=== PATIENT | male | born 1950 | race Caucasian/White ===

== ENCOUNTER → 2017-10-01 12:45 | Outpatient (CLI) | payer MEDICARE, OTHER, SELFPAY ==
--- NOTE | 2017-10-01 12:48 | ECHOCS_ITS ---
Reason For Study: CHF Procedure This was a 2D Doppler, Color Flow transthoracic echocardiogram. Contrast injection was performed. Exam performed in department. Left Ventricle Moderately dilated left ventricle. Possible small laminated thrombus at LV apex. The estimated ejection fraction is 10-15 %. Stage 1 diastolic dysfunction. Septal motion consistent with IVCD. There is severe global hypokinesis of the left ventricle. Right Ventricle Normal size and thickness. ICD or pacer leads identified within the right ventricle. Normal systolic function. Atria Normal left atrium. Normal right atrium. Normal atrial septum. Mitral Valve The mitral valve is structurally normal. No prolapse or stenosis seen. Tricuspid Valve Normal tricuspid valve. Trivial tricuspid valve insufficiency. Right ventricular systolic pressure estimated to be 23 mmHg. Aortic Valve Normal aortic valve. Trisinus/trileaflet aortic valve. Pulmonic Valve The pulmonic valve is not well visualized. Great Vessels Normal aortic root. Normal arch. Pericardium/Pleural No pericardial effusion. Medication 22 gauge I.V. with prn adaptor inserted into right arm. Diluted definity 2ml given slow IV push to enhance endocardial definition. MMode/2D Measurements & Calculations LVIDd: 5.1 cm IVSd: 0.85 cm Ao root diam: 4.0 cm LVIDs: 4.7 cm LVPWd: 1.0 cm LA dimension: 4.4 cm FS: 8.4 % LAV(MOD-bp): 63.2 ml LAV(MOD-bp) Indexed: 30.1 ml/m2 LA A4 area: 19.1 cm2 RA A4 area: 11.9 cm2 LAV(MOD-sp2): 51.2 ml LAV(MOD-sp4): 65.2 ml Time Measurements MV dec time: 0.22 sec Doppler Measurements & Calculations MV E max samuel: 50.9 cm/sec Lat Peak E' Samuel: 8.3 cm/sec Med Peak E' Samuel: 4.5 cm/sec MV A max samuel: 62.4 cm/sec E/E' lat: 6.2 E/E' med: 11.3 MV E/A: 0.82 MV V2 max: 72.5 cm/sec MV P1/2t max samuel: 62.3 cm/sec Ao V2 max: 60.0 cm/sec MV max P.1 mmHg MV P1/2t: 74.0 msec Ao max P.4 mmHg MV V2 mean: 38.7 cm/sec MV dec slope: 246.5 cm/sec2 Ao V2 mean: 40.8 cm/sec MV mean P.72 mmHg MVA(P1/2t): 3.0 cm2 Ao mean P.77 mmHg MV V2 VTI: 19.3 cm Ao V2 VTI: 10.5 cm LV V1 max: 52.4 cm/sec PA V2 max: 55.6 cm/sec TR max samuel: 215.2 cm/sec LV V1 max P.1 mmHg TR max P.5 mmHg LV V1 mean P.71 mmHg LV V1 mean: 39.9 cm/sec LV V1 VTI: 10.5 cm Interpretation Summary Moderately dilated left ventricle. The estimated ejection fraction is 10-15 %. Stage 1 diastolic dysfunction. There is severe global hypokinesis of the left ventricle. Right ventricular systolic pressure estimated to be 23 mmHg. Possible small laminated thrombus at LV apex. Compared to echo report dated 02/15/2015, LV function has remained the same, RVSP has improved from 32 to 23 mm Hg. Spherical apical clot previously seen now appears to be laminated against LV apex. The study was technically difficult. Contrast injection was performed. Ordering Physician: Jose Ulrich Referring Physician: Jose Ulrich Performed By: Scott Mccullough RCS
== END ==
PROVIDERS: Family Provider Family Medicine; PCP Family Medicine; Visit Provider Internal Medicine Cardiovascular Disease
DX: I50.9 Heart failure, unspecified (principal); I25.10 Atherosclerotic heart disease of native coronary artery without angina pectoris
CPT/HCPCS: 93306; Q9957; A4216; C8929

== ENCOUNTER → 2018-04-13 12:13 | Outpatient (CLI) | payer MEDICARE, OTHER, SELFPAY ==
[2018-04-13 11:51] VITALS: BMI 32.5
[2018-04-13 13:22] LABS: AST(SGOT) 21 U/L (15-37); Alanine Aminotransfer ALT/SGPT 30 U/L (16-61); Albumin, Serum 3.7 g/dL (3.2-5.0); Alkaline Phosphatase 109 U/L (45-117); Cholesterol 95 mg/dL (200); Globulin 3.7 g/dL (2.2-4.2); High Density Lipoprotein 45 mg/dL; Protein, Total 7.4 g/dL (6.4-8.2); Triglycerides 49 mg/dL; Very Low Density Lipoprotein 10 mg/dL (5-40)
== END ==
PROVIDERS: Family Provider Family Medicine; PCP Family Medicine; Referring Provider Internal Medicine Cardiovascular Disease; Visit Provider Internal Medicine Cardiovascular Disease
DX: I25.10 Atherosclerotic heart disease of native coronary artery without angina pectoris (principal); E78.5 Hyperlipidemia, unspecified
CPT/HCPCS: 36415; 80061; 80076

== ENCOUNTER → 2019-05-18 | Outpatient (CLI) | payer MEDICARE, OTHER, SELFPAY ==
[2018-11-05 11:39] VITALS: BMI 31.7
[2019-05-18 17:17] LABS: Absolute Lymphocyte Count 2.04 X10^3/uL (0.83-4.51); Absolute Neutrophil Count 5.2 X10^3/uL (2.0-7.7); Basophil# 0.03 X10^3/uL; Basophil% 0.4 % (0-1); Eosinophil# 0.14 X10^3/uL; Eosinophils% 1.8 % (0-5); Hematocrit 47.2 % (40-54); Hemoglobin 15.1 g/dL (13.0-16.5); Lymphocyte # 2.04 X10^3/ul (4.0); Lymphocyte % 25.8 % (19-41); Mean Corpuscular Hgb 28.7 pg (27.0-32.0); Mean Corpuscular Volume 89.7 fL (80-94); Mean Platelet Vol. 9.2 fl (6.2-12.0); Monocyte% 6.3 % (0-10); NRBC Flagged by Analyzer 0 % (0-5); Neutrophil # 5.17 X10^3/uL (2.7-7.7); Neutrophil % 65.4 % (47-70); Platelet Count 304 K/mm3 (150-450); RBC Distribution Width CV 12.7 % (11.6-14.6); RBC Distribution Width SD 42.2 fl (35.1-43.9); Red Blood Count 5.26 M/mm3 (4.6-6.2); White Blood Count 7.9 K/mm3 (4.4-11.0)
[2019-05-18 17:40] LABS: Anion Gap 7 (5-15); BUN 21 mg/dL (7-18); Calcium,Total 9.4 mg/dL (8.5-10.1); Chloride 105 mmol/L (98-107); Creatinine, Serum 1.31 mg/dL (0.70-1.30); EST Glomerular Filtration Rate 58 mL/min (>60); Est Glom Filt Rate - Afr Amer 70 mL/min (>60); Glucose 122 mg/dL (74-106); PSA,Total - Annual Screen 0.44 ng/mL (0.00-4.00); Potassium 4.1 mmol/L (3.5-5.1); Sodium Level 141 mmol/L (136-145)
[2019-05-18 17:41] LABS: Hemoglobin A1c 7.9 % (4.2-6.3)
== END | disposition home or self-care (01) ==
LOC: BFHLAB 14:08
PROVIDERS: PCP Family Medicine; Visit Provider Family Medicine
DX: E11.59 Type 2 diabetes mellitus with other circulatory complications (principal); I10 Essential (primary) hypertension; Z51.81 Encounter for therapeutic drug level monitoring; Z12.5 Encounter for screening for malignant neoplasm of prostate
CPT/HCPCS: 36415; 80048; 83036; 84153; 85025; G0103

== ENCOUNTER → 2019-06-08 09:44 | Outpatient (CLI) | payer MEDICARE, OTHER, SELFPAY ==
[2019-05-20 12:01] VITALS: BMI 31.4
--- NOTE | 2019-06-08 09:53 | STEWCON_ITS ---
Reason For Study: CHEST PAIN Stress Results Protocol: Modified Antonio Protocol With Definity Maximum Predicted HR: 152 bpm Target HR: 129 bpm % Maximum Predicted HR: 84 % DurationHeart Rate Stage (mm:ss) (bpm) BP Comment BASELINE 76 138/744 CC DEFINITY FOR ENTIRE TEST STAGE 0 3:00 100 142/70 STAGE 1/2 3:00 100 142/70 STAGE 1 3:00 110 144/70 STAGE 2 3:00 120 140/70 STAGE 3 0:50 127 / RECOVERY 86 140/78 Stress Duration: 12:50 mm:ss Maximum Stress HR: 127 bpm Baseline Echocardiogram Findings The estimated ejection fraction is 20 %. Severely dilated left ventricle. Stress Echo Wall motion Data Resting WM Intermediate WM Stress WM Resting Wall Motion Basal anteroseptal: Severely Hypokinetic. Mid-Anterior : Severely Hypokinetic. Mid-Lateral : Severely Hypokinetic. EKG Data The baseline ECG displays normal sinus rhythm. The maximum heart rate attained was 127 beats per minute. This was 83% of maximum predicted heart rate. The patient exercised into stage 3 of the Antonio protocol. During stress, there were no ST or T wave changes noted to suggest ischemia. No clinical angina was noted. Interpretation Summary The estimated ejection fraction is 20 %. Normal, adequate, modified Antonio treadmill echocardiogram. Negative for ischemia by EKG and echocardiographic criteria. Rare PVC noted. Appropriate blood pressure response to exercise. Average exercise capacity for age. Patient at baseline severe LV dysfunction with severe anteroseptal and lateral hypokinesis. All richardson contracted normally except for baseline anteroseptal hypokinesis. Final LVEF of 35%. Decrease sensitivity due to poor echo windows requiring Definity agent. Test terminated the attainment target heart rate and dyspnea. Adequate rate-pressure product. The study was technically difficult. Contrast injection was performed. Ordering Physician: Jose Ulrich Referring Physician: Jose Ulrich Performed By: Jeanette Minaya, RDCS, RVT
[2019-06-08 11:32] LABS: AST(SGOT) 27 U/L (15-37); Alanine Aminotransfer ALT/SGPT 36 U/L (16-61); Albumin, Serum 3.9 g/dL (3.2-5.0); Alkaline Phosphatase 134 U/L (45-117); Bilirubin, Direct 0.19 mg/dL (0.00-0.30); Cholesterol 116 mg/dL (200); High Density Lipoprotein 44 mg/dL; Protein, Total 7.9 g/dL (6.4-8.2); Triglycerides 54 mg/dL; Very Low Density Lipoprotein 11 mg/dL (5-40)
== END ==
PROVIDERS: PCP Family Medicine; Referring Provider Internal Medicine Cardiovascular Disease; Visit Provider Internal Medicine Cardiovascular Disease
DX: I25.10 Atherosclerotic heart disease of native coronary artery without angina pectoris (principal); E78.5 Hyperlipidemia, unspecified; I50.22 Chronic systolic (congestive) heart failure; I25.5 Ischemic cardiomyopathy; Z95.1 Presence of aortocoronary bypass graft
CPT/HCPCS: 36415; 80061; 80076; 93017; 93350; Q9957; A4216; C8928

== ENCOUNTER → 2020-05-30 11:59 | Outpatient (CLI) | payer MEDICARE, OTHER, SELFPAY ==
[2019-12-21 14:27] VITALS: BMI 30.5
[2020-05-30 12:43] LABS: Absolute Lymphocyte Count 1.72 X10^3/uL (0.83-4.51); Absolute Neutrophil Count 5.1 X10^3/uL (2.0-7.7); Basophil# 0.04 X10^3/uL; Basophil% 0.5 % (0-1); Eosinophil# 0.11 X10^3/uL; Eosinophils% 1.4 % (0-5); Hematocrit 44.5 % (40-54); Hemoglobin 14.6 g/dL (13.0-16.5); Lymphocyte # 1.72 X10^3/ul (4.0); Lymphocyte % 22.5 % (19-41); Mean Corp Hgb Conc 32.8 g/dL (32-36); Mean Corpuscular Hgb 29.7 pg (27.0-32.0); Mean Corpuscular Volume 90.4 fL (80-94); Mean Platelet Vol. 9.3 fl (6.2-12.0); Monocyte# 0.64 X10^3/uL; Monocyte% 8.4 % (0-10); NRBC Flagged by Analyzer 0 % (0-5); Neutrophil # 5.09 X10^3/uL (2.7-7.7); Neutrophil % 66.7 % (47-70); Platelet Count 256 K/mm3 (150-450); RBC Distribution Width CV 12.9 % (11.6-14.6); RBC Distribution Width SD 42.1 fl (35.1-43.9); Red Blood Count 4.92 M/mm3 (4.6-6.2); White Blood Count 7.6 K/mm3 (4.4-11.0)
[2020-05-30 13:01] LABS: Microalbumin,Random Urine 20.5 mg/L (NO RANGE EST.); Microalbumin:Creatinine Ratio 13.9 mg/g CRE (<30 mg/g CRE)
[2020-05-30 13:18] LABS: Hemoglobin A1c 8.4 % (3.8-5.6)
[2020-05-30 13:47] LABS: ALB/GLOB Ratio 1.1 RATIO (0.9-2.4); AST(SGOT) 23 U/L (15-37); Alanine Aminotransfer ALT/SGPT 34 U/L (16-61); Alkaline Phosphatase 124 U/L (45-117); Anion Gap 5 (5-15); BUN 22 mg/dL (7-18); BUN/Creat Ratio 16.7 RATIO (10-20); Calcium,Total 9.7 mg/dL (8.5-10.1); Chloride 105 mmol/L (98-107); Cholesterol 110 mg/dL (200); Creatinine, Serum 1.32 mg/dL (0.70-1.30); EST Glomerular Filtration Rate 57 mL/min (>60); Est Glom Filt Rate - Afr Amer 69 mL/min (>60); Globulin 3.7 g/dL (2.2-4.2); Glucose 138 mg/dL (74-106); High Density Lipoprotein 46 mg/dL; PSA,Total - Annual Screen 0.58 ng/mL (0.00-4.00); Potassium 4.4 mmol/L (3.5-5.1); Protein, Total 7.7 g/dL (6.4-8.2); Sodium Level 139 mmol/L (136-145); Triglycerides 51 mg/dL; Very Low Density Lipoprotein 10 mg/dL (5-40)
== END ==
PROVIDERS: PCP Family Medicine; Visit Provider Family Medicine
DX: E11.59 Type 2 diabetes mellitus with other circulatory complications (principal); I25.10 Atherosclerotic heart disease of native coronary artery without angina pectoris; I10 Essential (primary) hypertension; Z12.5 Encounter for screening for malignant neoplasm of prostate; Z79.899 Other long term (current) drug therapy
CPT/HCPCS: 36415; 80053; 80061; 82043; 82570; 83036; 84153; 85025; G0103

== ENCOUNTER 2021-03-26 12:41 | Outpatient (CLI) | payer MEDICARE, OTHER, SELFPAY ==
--- NOTE | 2021-03-26 12:50 | ECHOCS_ITS ---
Reason For Study: Thrombus Procedure This was a 2D Doppler, Color Flow transthoracic echocardiogram. The study was technically difficult. Contrast injection was performed. Exam performed in department. Left Ventricle Moderately dilated left ventricle. Severe global left ventricular systolic dysfunction. The estimated ejection fraction is 15 %. Diastolic function is indeterminate. Right Ventricle Normal RV size. Normal systolic function. Atria The left atrium is mildly enlarged. Normal right atrium. No doppler evidence for ASD. Mitral Valve There is mild mitral annular calcification. Extension of the mitral annular calcification on the base of the posterior mitral valve leaflet. Mild (1+) mitral valve insufficiency. Tricuspid Valve Normal tricuspid valve. Mild tricuspid valve insufficiency. Right ventricular systolic pressure estimated to be 30 mmHg. Aortic Valve Trisinus/trileaflet aortic valve. The aortic valve is not well visualized. Pulmonic Valve The pulmonic valve is not well visualized. Mild (1+) pulmonic valve insufficiency. Great Vessels The aortic root is not well visualized. Pericardium/Pleural No pericardial effusion. Medication 22 gauge I.V. with prn adaptor inserted into right arm. Diluted definity 4ml given slow IV push to enhance endocardial definition. MMode/2D Measurements & Calculations LVIDd: 5.7 cm IVSd: 1.1 cm LA dimension: 4.6 cm LVIDs: 5.3 cm LVPWd: 1.1 cm FS: 7.0 % LAV(MOD-bp): 55.3 ml LA A4 area: 19.3 cm2 RA A4 area: 15.9 cm2 LAV(MOD-bp) Indexed: 26.4 ml/m2 LAV(MOD-sp2): 55.2 ml LAV(MOD-sp4): 61.7 ml Time Measurements MV dec time: 0.22 sec Doppler Measurements & Calculations MV E max samuel: 78.5 cm/sec Lat Peak E' Samuel: 10.5 cm/sec Med Peak E' Samuel: 5.0 cm/sec MV A max samuel: 54.7 cm/sec E/E' lat: 7.5 E/E' med: 15.6 MV E/A: 1.4 MV V2 max: 71.3 cm/sec MV P1/2t max samuel: 71.3 cm/sec Ao V2 max: 80.0 cm/sec MV max P.0 mmHg MV P1/2t: 103.3 msec Ao max P.6 mmHg MV V2 mean: 43.5 cm/sec MV dec slope: 202.2 cm/sec2 MV mean P.86 mmHg MV V2 VTI: 17.5 cm MVA(P1/2t): 2.1 cm2 LV V1 max: 69.5 cm/sec PA V2 max: 70.3 cm/sec TR max samuel: 257.4 cm/sec LV V1 max P.9 mmHg TR max P.5 mmHg ECHO/Echo Complete W/ Contrast Interpretation Summary The study was technically difficult. Contrast injection was performed. Moderately dilated left ventricle. Severe global left ventricular systolic dysfunction. The estimated ejection fraction is 15 %. The left atrium is mildly enlarged. There is mild mitral annular calcification. Extension of the mitral annular calcification on the base of the posterior mitr al valve leaflet. Mild (1+) mitral valve insufficiency. Mild tricuspid valve insufficiency. Mild (1+) pulmonic valve insufficiency. Right ventricular systolic pressure estimated to be 30 mmHg. Diastolic function is indeterminate. Comment: Based upon the 2D echocardiographic images obtained there appears to b e findings potentially compatible with a partially calcified/laminated apical thrombus. Ordering Physician: Lisa Seo Referring Physician: Avinash Cedeño Performed By: Scott Mccullough RCS
== END 2021-03-26 23:59 | disposition short-term general hospital (02) ==
LOC: CVS 12:45
PROVIDERS: PCP Family Medicine; Visit Provider Physician Assistant Medical
DX: I25.10 Atherosclerotic heart disease of native coronary artery without angina pectoris (principal)
CPT/HCPCS: 93306; Q9957; A4216; C8929

== ENCOUNTER 2021-04-26 13:52 | Outpatient (CLI) | payer MEDICARE, OTHER, SELFPAY ==
[2021-04-26 15:54] LABS: Anion Gap 4 (5-15); BUN 21 mg/dL (7-18); BUN/Creat Ratio 14.6 RATIO (10-20); Calcium,Total 9.2 mg/dL (8.5-10.1); Chloride 104 mmol/L (98-107); Creatinine, Serum 1.44 mg/dL (0.70-1.30); EST Glomerular Filtration Rate 52 mL/min (>60); Est Glom Filt Rate - Afr Amer 62 mL/min (>60); Glucose 224 mg/dL (74-106); Potassium 4.3 mmol/L (3.5-5.1); Sodium Level 138 mmol/L (136-145)
== END 2021-04-26 23:59 | disposition home or self-care (01) ==
LOC: LAB 13:53
PROVIDERS: PCP Family Medicine; Visit Provider Family Medicine
DX: Z12.5 Encounter for screening for malignant neoplasm of prostate (principal); E11.59 Type 2 diabetes mellitus with other circulatory complications; I25.10 Atherosclerotic heart disease of native coronary artery without angina pectoris; I10 Essential (primary) hypertension; E87.6 Hypokalemia
CPT/HCPCS: 36415; 80048

== ENCOUNTER 2021-05-31 12:00 | Outpatient (CLI) | payer MEDICARE, OTHER, SELFPAY ==
[2021-05-31 13:13] LABS: Cholesterol 94 mg/dL (200); Hemoglobin A1c 8.2 % (3.8-5.6); High Density Lipoprotein 44 mg/dL; Microalbumin,Random Urine 9.7 mg/L (NO RANGE EST.); Microalbumin:Creatinine Ratio 19.3 mg/g CRE (<30 mg/g CRE); Triglycerides 38 mg/dL; Very Low Density Lipoprotein 8 mg/dL (5-40)
== END 2021-05-31 23:59 | disposition home or self-care (01) ==
LOC: LAB 12:03
PROVIDERS: PCP Family Medicine; Visit Provider Family Medicine
DX: E87.6 Hypokalemia (principal); E11.59 Type 2 diabetes mellitus with other circulatory complications; I25.10 Atherosclerotic heart disease of native coronary artery without angina pectoris; I10 Essential (primary) hypertension; Z12.5 Encounter for screening for malignant neoplasm of prostate
CPT/HCPCS: 36415; 80061; 82043; 82570; 83036; 84153; G0103

== ENCOUNTER 2021-07-03 09:12 | Day surgery (SDC) | payer MEDICARE, OTHER, SELFPAY ==
[2021-07-03] VITALS (7 sets, daily range): BP systolic 101–142; BP diastolic 60–73; PULSE 62–75; RESP 16; TEMP 36.3–36.8; O2SAT 94–98; BMI 31.4
[2021-07-03] MEDS: Lactated Ringers 1,000 ML 15 ML IV (09:20)
--- NOTE | 2021-07-03 09:34 | PCM.HP.BLA ---
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 Required: No Is patient in pain?: No Allergies Penicillins Allergy (Verified 06/26/21 13:07) Other lisinopril Adverse Reaction (Mild, Verified 06/26/21 13:07) Nagging cough Medications tamsulosin 0.4 mg capsule 0.4 mg PO QDAY 05/07/17 [History Confirmed 06/26/21] insulin human U-100 NPH-regulr 70-30 mix 100 unit/mL subcutaneous susp 10 unit SC BID ml 06/18/17 [History Confirmed 06/26/21] insulin regular human 100 unit/mL injection solution 7 unit SC TID ml 06/18/17 [History Confirmed 06/26/21] uxnrxrfm-qej-riynv acid 0.4 mg-lycopene 300 mcg-lutein 250 mcg tablet 1 tab PO QDAY 06/18/17 [History Confirmed 06/26/21] aspirin 81 mg tablet,delayed release 81 mg PO QDAY 09/08/17 [History Confirmed 06/26/21] carvedilol 6.25 mg tablet 6.25 mg PO BID #180 tab 11/21/20 [Rx Confirmed 06/26/21] furosemide 40 mg tablet 40 mg PO QDAY #90 tab 11/21/20 [Rx Confirmed 06/26/21] rivaroxaban 20 mg tablet 20 mg PO QDAY #30 tab 02/26/21 [Rx Confirmed 06/26/21] losartan 25 mg tablet 25 mg PO .COMPLEX #45 tab 03/15/21 [Rx Confirmed 06/26/21] atorvastatin 80 mg tablet 80 mg PO QHS #90 tab 03/21/21 [Rx Confirmed 06/26/21] pantoprazole 40 mg tablet,delayed release 40 mg PO QDAY #90 tab 03/21/21 [Rx Confirmed 06/26/21] potassium chloride 20 mEq tablet,extended release 20 meq PO QDAY #90 tab 03/21/21 [Rx Confirmed 06/26/21] [facility] Medical History (Updated 06/26/21 @ 13:[address] 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 Type 2 diabetes mellitus without complications Surgical History H/O coronary artery bypass surgery (03/30/15) H/O right heart catheterization (03/27/15) History of foot surgery History of left heart catheterization (03/22/15) Presence of automatic implantable cardioverter-defibrillator (08/21/15) Family History Mother Hypertension Thyroid disorder hypothyroidism Brother Diabetes H/O mitral valve replacement Father , Age 67 Cancer COPD (chronic obstructive pulmonary disease) Social History Smoking Status: Never smoker alcohol intake: never substance use type: does not use caffeine: Yes Type: coffee Number of servings: 2 HPI HPI HPI: HEAVENLY LYNN, is a 71 M who presents to the office today for consideration of colonoscopy. The patient is referred by Dr. Avinash Cedeño and a written copy of my surgical consult recommendations will return to him. The patient is in need of colon cancer screening. The patient has a history of ischemic cardiomyopathy. Report of ejection fraction and worsening to 15% March 2021. 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 Among his other medicines he is on insulin and carvedilol And furosemide and pantoprazole and Xarelto. He is a ICD in place. As of March 26, 2021 with the preintervention diagnosis of thrombus the patient had an echocardiogram. There was felt to be a moderately dilated left ventricle. Severe global left ventricular systolic dysfunction with an ejection fraction of 15%. In addition there is felt to be a partially calcified/laminated apical thrombus.. He has had a history of coronary bypass surgery. Had a colonoscopy. He is amazingly functional for someone who has an ejection fraction of 15%. He denies chest pain. Denies shortness of breath. Denies leg swelling. Denies abdominal pain. He has had no bright red blood per rectum or melena. He is on Xarelto however he states that he does not seem to bleed very readily. Remotely he was on warfarin therapy. ROS General General: No weight change, appetite, fatigue, colon cancer, breast cancer or weakness HEENT HEENT: No difficulty swallowing, eye injury, eye surgery, swollen glands or hoarseness Endo Endocrine: Yes diabetes mellitus; No thyroid disease, thyroid cancer, Hair loss, heat intolerance or cold intolerance Skin Skin: No rash or changing moles Breast Breast: No left breast lump, right breast lump, nipple discharge, breast pain, abnormal mammogram, abnormal US or breast enlargement Musc Musculoskeletal: No back problems, arthritis, rheumatoid arthritis, gout or joint pain Cardio Cardiovascular: Yes pacemaker, heart disease, high blood pressure and heart attack; No murmur, atrial fibrillation, heart stent, palpitations, shortness of breat with exertion or chest pain Psych Psychiatric: No depression, anxiety or hearing voices Resp Respiratory: No shortness of breath, No sleep apnea, No cough, No COPD, No asthma, No emphysema and No wheezing Gastro Gastrointestinal: No abdominal pain, No nausea or vomiting, No diarrhea, No constipation, No blood in stool, No acid reflux, No hemorrhoids, No ulcers, No gallbladder problem and No black,tarry stools Daniel Hematologic: Yes blood thinners, No blood disorders, No bleeding, No anemia and No blood clots Neuro Neurologic: No system reviewed and no additional complaints, except as documented, No as per HPI, No abnormal gait, No abnormal hearing, No abnormal movements, No abnormal speech, No behavioral changes, No burning sensations, No confusion, No convulsions, No disequilibrium, No dizziness, No localized weakness, No frequent falls, No headache(s), No lack of coordination, No loss of vision, No memory loss, No numbness, No other visual disturbances, No radicular pain, No restless legs, No sensory deficit, No syncope, No tingling, No tremor(s), No weakness and No other Exam Const General: cooperative, comfortable and no acute distress Nutritional Appearance: obese Orientation: awake and oriented x3 HENMT Head: normal to inspection Eyes General: appearance normal, both eyes and all related structures Resp Effort & Inspection: normal respiratory effort Auscultation: clear to auscultation bilaterally Cardio Rate: regular rate Rhythm: regular rhythm GI Palpation: soft and no hepatosplenomegaly Musc Cervical Spine: normal cervical lordosis Neuro General: patient alert and patient awake Extrem General: no calf tenderness Psych Appearance: grossly normal Assessment and Plan Assessment and Plan (1) Screening for intestinal cancer: Status: Acute Plan - Dr. Abdi Hernandez MD: I recommend to the patient a screening colonoscopy with possible biopsy or polypectomy as indicated. He has stable thrombus in his heart. For an ejection fraction of 15% he is amazingly functional. He is able to achieve his tasks of daily living without disruption. 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 We will plan to proceed with monitored anesthesia care.. His pacemaker defibrillator will need to be observed as well. As noted he has never had a previous colonoscopy. We will simply have him hold his Xarelto on the day of his procedure. Appreciate the opportunity of assisting with the surgical care Copy: Dr. Avinash Hernandez M.D., F.A.C.S I have re-examined the patient. There are no clinical changes since date of exam. Abdi Hernandez M.D., F.A.C.S.
[2021-07-03 09:55] LABS: Bedside Glucose 231 mg/dL (74-106)
--- NOTE | 2021-07-03 10:30 | COLBX_PTH ---
PATIENT: HEAVENLY LYNN LOC: EN U#:[id number] AGE/SX: 71/M ROOM: RE07/03/[address]: Dr. Abdi Hernandez MD : 1950 BED: DIS: 07/03/2021 SPEC #: [id number] RECD: 07/03/21 13:48 STATUS: RONNIE RIGGINS #: [id number] ROCHELLE: 07/03/21 10:[address]: Abdi Hernandez DEPT: SURGICAL PATHOLOGY RECD BY: Charity Motley ENTERED: 07/04/21 09:51 SP TYPE: COLON BX OTHR DR: Dr. Avinash Cedeño, DO Tissues: A - Sigmoid colon biopsy B - Rectum, NOS Procedures: Surgery Specimen Level IV HEADER OPERATION: Colonoscopy (MAC) polyp PRE-OP DIAGNOSIS: Screening TISSUE SUBMITTED: A ? Proximal sigmoid polyp, B ? Rectal polyp MICROSCOPIC DIAGNOSIS A. Proximal sigmoid polyp, biopsy: Fragments of tubular adenoma. B. Rectal polyp, biopsy: Tubular adenoma. OMERO:melina 07/05/2021 MICROSCOPIC DESCRIPTION Slides are reviewed. GROSS DESCRIPTION A - Received in fixative is one container labeled with the patient's name and designated proximal sigmoid polyp. The specimen consists of two pieces of rolle-pink polyp measuring 0.5 x 0.4 x 0.2 cm and 0.3 x 0.3 x 0.1 cm. The specimen is totally submitted in one cassette. B - Received in fixative is one container labeled with the patient's name and designated rectal polyp. The specimen consists of a pink-red polyp measuring 1.6 x 1 x 0.7 cm. The apparent base is inked. The specimen is serially sectioned and submitted entirely in one cassette. / OMERO:melina 07/04/2021 TC:1 [facility]: [id number] x2
--- NOTE | 2021-07-03 11:57 | OP.COLON_ITS ---
Patient Name: Adryan Prather Procedure Date: 07/03/2021 11:17 AM Date of : 1950 Age: 71 Procedure: Colonoscopy Indications: Screening for colorectal malignant neoplasm Providers: Abdi Hernandez MD Medicines: See the Anesthesia note for documentation of the administered medications Patient Profile: Last Colonoscopy: none. The patient's first colonoscopy is today. Complications: No immediate complications. Procedure: Pre-Anesthesia Assessment: - Prior to the procedure, a History and Physical was performed, and patient medications and allergies were reviewed. The patient's tolerance of previous anesthesia was also reviewed. The risks and benefits of the procedure and the sedation options and risks were discussed with the patient. All questions were answered, and informed consent was obtained. Prior Anticoagulants: The patient has taken no previous anticoagulant or antiplatelet agents. ASA Grade Assessment: III - A patient with severe systemic disease. After reviewing the risks and benefits, the patient was deemed in satisfactory condition to undergo the procedure. After I obtained informed consent, the scope was passed under direct vision. Throughout the procedure, the patient's blood pressure, pulse, and oxygen saturations were monitored continuously. The Colonoscope was introduced through the anus and advanced to the cecum, identified by appendiceal orifice and ileocecal valve. The colonoscopy was performed without difficulty. The patient tolerated the procedure well. The quality of the bowel preparation was good. The ileocecal valve and the appendiceal orifice were photographed. Scope In: 11:26:05 AM Scope Withdrawal Time 0 hours 18 minutes 33 seconds Scope Out: 11:50:19 AM Total Procedure Duration Time 0 hours 24 minutes 14 seconds Findings: The digital rectal exam findings include non-thrombosed internal hemorrhoids, internal hemorrhoids that prolapse with straining, but spontaneously regress to the resting position (Grade II) and enlarged prostate. A 1 mm polyp was found in the proximal sigmoid colon. The polyp was sessile. The polyp was removed with a hot snare. Resection and retrieval were complete. To prevent bleeding post-intervention, one hemostatic clip was successfully placed. There was no bleeding at the end of the procedure. A 25 mm polyp was found in the rectum. The polyp was sessile. The polyp was removed with a hot snare. Resection and retrieval were complete. To prevent bleeding post-intervention, one hemostatic clip was successfully placed. There was no bleeding at the end of the procedure. Multiple diverticula were found in the sigmoid colon and descending colon. Impression: - Non-thrombosed internal hemorrhoids, internal hemorrhoids that prolapse with straining, but spontaneously regress to the resting position (Grade II) and enlarged prostate found on digital rectal exam. - One 1 mm polyp in the proximal sigmoid colon, removed with a hot snare. Resected and retrieved. Clip was placed. - One 25 mm polyp in the rectum, removed with a hot snare. Resected and retrieved. Clip was placed. - Diverticulosis in the sigmoid colon and in the descending colon. Recommendation: - Discharge patient to home. - Resume previous diet. - Continue present medications. - Repeat colonoscopy in 3 years for surveillance based on pathology results. - Telephone my office for pathology results in 1 week. Procedure Code(s): --- Professional --- 43611, Colonoscopy, flexible; with removal of tumor(s), polyp(s), or other lesion(s) by snare technique Diagnosis Code(s): --- Professional --- Z12.11, Encounter for screening for malignant neoplasm of colon D12.5, Benign neoplasm of sigmoid colon K62.1, Rectal polyp K64.1, Second degree hemorrhoids N40.0, Benign prostatic hyperplasia without lower urinary tract symptoms K57.30, Diverticulosis of large intestine without perforation or abscess without bleeding CPT copyright 2017 [employer]. All rights reserved. The codes documented in this report are preliminary and upon auction block clerk review may be revised to meet current compliance requirements. Abdi Hernandez MD 07/03/2021 11:56:52 AM This report has been signed electronically. Number of Addenda: 0 Note Initiated On: 07/03/2021 11:17 AM
--- NOTE | 2021-07-03 11:58 | OP.CCLET_ITS ---
07/03/2021 Avinash Cedeño [address] [place] [address] Re : Colonoscopy procedure for Adryan Borgestyler Dear Dr. Cedeño This procedure was performed on Saturday, July 03, 2021. My impressions and recommendations are as follows: Impressions : - Non-thrombosed internal hemorrhoids, internal hemorrhoids that prolapse with straining, but spontaneously regress to the resting position (Grade II) and enlarged prostate found on digital rectal exam. - One 1 mm polyp in the proximal sigmoid colon, removed with a hot snare. Resected and retrieved. Clip was placed. - One 25 mm polyp in the rectum, removed with a hot snare. Resected and retrieved. Clip was placed. - Diverticulosis in the sigmoid colon and in the descending colon. Recommendations : - Discharge patient to home. - Resume previous diet. - Continue present medications. - Repeat colonoscopy in 3 years for surveillance based on pathology results. - Telephone my office for pathology results in 1 week. My findings are described in the full procedure note, which is enclosed. If I can be of further assistance, please feel free to contact me at Doctor phone number(s): Work: . Sincerely, Abdi Hernandez MD 07/03/2021 11:56:52 AM This report has been signed electronically.
== END 2021-07-03 23:59 | disposition home or self-care (01) ==
LOC: EN 09:12 → AC 09:13
PROVIDERS: PCP Family Medicine; Referring Provider Family Medicine; Visit Provider Surgery
PROC: 0DJD8ZZ Inspection of Lower Intestinal Tract, Via Natural or Artificial Opening Endoscopic (ICD-10-PCS; CPT 45378; principal; 2021-07-03 10:25)
DX: Z12.11 Encounter for screening for malignant neoplasm of colon (principal); I11.0 Hypertensive heart disease with heart failure; I50.22 Chronic systolic (congestive) heart failure; E11.9 Type 2 diabetes mellitus without complications; Z79.4 Long term (current) use of insulin; D12.5 Benign neoplasm of sigmoid colon; K62.1 Rectal polyp; K57.30 Diverticulosis of large intestine without perforation or abscess without bleeding; N40.0 Benign prostatic hyperplasia without lower urinary tract symptoms; I25.10 Atherosclerotic heart disease of native coronary artery without angina pectoris; K64.1 Second degree hemorrhoids; K21.9 Gastro-esophageal reflux disease without esophagitis; E78.00 Pure hypercholesterolemia, unspecified; I69.920 Aphasia following unspecified cerebrovascular disease; I25.2 Old myocardial infarction; Z79.899 Other long term (current) drug therapy; Z79.82 Long term (current) use of aspirin; Z95.1 Presence of aortocoronary bypass graft
CPT/HCPCS: 45385; 82962; 88305; J7120

== ENCOUNTER → 2021-10-09 | Outpatient (CLI) | payer MEDICARE, OTHER, SELFPAY ==
--- NOTE | 2021-10-09 14:55 | RAD_ITS ---
EXAM: XR CHEST, 2 VIEWS CLINICAL INDICATION: COUGH x10 DAYS TECHNIQUE: Frontal and lateral views of the chest. This report was created using [employer] report generation technology. COMPARISON: None. FINDINGS: LUNGS AND PLEURAL SPACES: Indeterminate noncalcified pulmonary nodule measuring 1.2 cm. HEART: Unremarkable. Cardiac silhouette not enlarged. MEDIASTINUM: Central airways and mediastinal contour are unremarkable. BONES/JOINTS: Capsulitis of iterative intact sternal wires. SOFT TISSUES: Unremarkable. TUBES, LINES AND DEVICES: Interval placement of a left-sided AICD/pacer with single lead projecting over the right ventricle. UPPER ABDOMEN: Other than the diaphragm pleural-parenchymal scarring at left bas. RAD/Chest PA and Lateral IMPRESSION: 1. No acute disease. 2. Indeterminate noncalcified pulmonary nodule measuring 1.2 cm. Suggest obtaining a follow-up PET CT for further investigation. Electronically Signed: Karthik Rushing MD at 1:36 EDT ,
[2021-10-12 15:07] LABS: Lyme IgG P18 Ab Absent (.); Lyme IgG P23 Ab Absent (.); Lyme IgG P28 Ab Absent (.); Lyme IgG P30 Ab Absent (.); Lyme IgG P39 Ab Absent (.); Lyme IgG P41 Ab Absent (.); Lyme IgG P45 Ab Absent (.); Lyme IgG P58 Ab Absent (.); Lyme IgG P66 Ab Absent (.); Lyme IgG P93 Ab Absent (.); Lyme IgM P23 Ab Absent (.); Lyme IgM P39 Ab Absent (.); Lyme IgM P41 Ab Absent (.)
[2021-10-12 16:15] LABS: Lyme IgG WB Interpretation Negative (.); Lyme IgM WB Interpretation Negative (.)
== END | disposition home or self-care (01) ==
LOC: LAB 14:38
PROVIDERS: PCP Family Medicine; Visit Provider Family Medicine
DX: R05.9 Cough, unspecified (principal); W57.XXXA Bitten or stung by nonvenomous insect and other nonvenomous arthropods, initial encounter
CPT/HCPCS: 36415; 71046; 86617

== ENCOUNTER → 2021-11-05 | Outpatient (CLI) | payer MEDICARE, OTHER, SELFPAY ==
--- NOTE | 2021-11-05 14:42 | CT_ITS ---
STUDY: CT CHEST WITHOUT CONTRAST REASON FOR EXAM: Male, 71 years old. Right upper lobe lung nodule. RADIATION DOSAGE (If Supplied By Facility): CTDIvol = ( 22.55 ) mGy, DLP = ( 692.88 ) mGycm TECHNIQUE: Transaxial imaging was performed without the administration of intravenous contrast material. Multiplanar coronal and sagittal images were reformatted. Individualized dose optimization techniques were used for this CT. COMPARISON: Comparison is made with prior chest radiograph dated 10/09/2021. FINDINGS: CHEST There is a 7.4 mm noncalcified nodule in the right upper lobe as seen on axial image #25. This corresponds to the radiographic findings. A six-month follow-up examination is suggested. Increased markings at the lung bases suggestive of scarring and/or atelectasis. There is no demonstrated pleural abnormality. There are calcifications of the coronary arteries. A left-sided pacemaker device is seen. There are multiple small lymph nodes within the mediastinum, which are normal in size and morphology most compatible with reactive lymph hyperplasia. Normal hilar regions. Normal unenhanced pulmonary arteries. Normal aorta arch and descending thoracic aorta. There are degenerative changes of the thoracic spine. There is a 1.1 cm hypodense nodule in the medial limb of the left adrenal gland suggestive of small adenoma. CT/Chest WITH Contrast IMPRESSION: 7.4 mm noncalcified nodule in the right upper lobe as described. A 6 month follow-up CT scan is recommended. Electronically Signed: Vivek Stone MD at 15:22 EDT ,
[2021-11-05 15:01] LABS: CREATININE FINGERSTICK < 0.9 mg/dL (0.70-1.30); EGFR FINGERSTICK > 60.0000 mL/min (>60)
== END | disposition home or self-care (01) ==
LOC: CT 14:35
PROVIDERS: PCP Family Medicine; Referring Provider Family Medicine; Visit Provider Family Medicine
DX: R91.1 Solitary pulmonary nodule (principal)
CPT/HCPCS: 71260; Q9967

== ENCOUNTER → 2022-05-14 | Outpatient (CLI) | payer MEDICARE, OTHER, SELFPAY ==
--- NOTE | 2022-05-14 07:55 | CT_ITS ---
STUDY: CT CHEST WITHOUT CONTRAST REASON FOR EXAM: Male, 72 years old. PULM NODULE RADIATION DOSAGE (If Supplied By Facility): CTDIvol = ( 19.47 ) mGy, DLP = ( 749.33 ) mGycm TECHNIQUE: Transaxial imaging was performed without the administration of intravenous contrast material. Multiplanar coronal and sagittal images were reformatted. Individualized dose optimization techniques were used for this CT. COMPARISON: Comparison is made with prior study dated 11/05/2021. FINDINGS: CHEST Stable 8.8 mm noncalcified nodule in the peripheral lateral aspect of the right upper lobe as seen on axial image #29. Minimal linear scarring at the left lung base. There is no demonstrated pleural abnormality. Sternal cerclage wires and vascular clips are present from a prior sternotomy and coronary artery bypass graft procedure (CABG). There are calcifications of the coronary arteries. There are multiple small lymph nodes within the mediastinum, which are normal in size and morphology most compatible with reactive lymph hyperplasia. Normal hilar regions. Normal unenhanced pulmonary arteries. Normal aorta arch and descending thoracic aorta. There are degenerative changes of the thoracic spine. Stable 1.1 cm hypodense nodule in the medial limb of the left adrenal gland in keeping with the adenoma. CT/Chest without Contrast IMPRESSION: Stable examination. Twelve-month follow-up CT scan is recommended. Electronically Signed: Vivek Stone MD at 11:10 [facility] ,
== END | disposition home or self-care (01) ==
PROVIDERS: PCP Family Medicine; Referring Provider Family Medicine; Visit Provider Family Medicine
DX: R91.1 Solitary pulmonary nodule (principal)
CPT/HCPCS: 71250

== ENCOUNTER → 2022-07-08 | Outpatient (CLI) | payer MEDICARE, OTHER, SELFPAY ==
[2022-07-08 12:08] LABS: Absolute Lymphocyte Count 1.62 X10^3/uL (0.83-4.51); Basophil# 0.04 X10^3/uL; Basophil% 0.5 % (0-1); Eosinophil# 0.16 X10^3/uL; Eosinophils% 1.9 % (0-5); Hematocrit 45.3 % (40-54); Hemoglobin 14.7 g/dL (13.0-16.5); Lymphocyte # 1.62 X10^3/ul (0.83-4.51); Lymphocyte % 19.4 % (19-41); Mean Corp Hgb Conc 32.5 g/dL (32-36); Mean Corpuscular Hgb 29.2 pg (27.0-32.0); Mean Corpuscular Volume 90.1 fL (80-94); Mean Platelet Vol. 9.6 fl (6.2-12.0); Monocyte# 0.55 X10^3/uL; Monocyte% 6.6 % (0-10); NRBC Flagged by Analyzer 0 % (0-5); Neutrophil # 5.95 X10^3/uL (2.7-7.7); Neutrophil % 71.2 % (47-70); Platelet Count 307 K/mm3 (150-450); RBC Distribution Width CV 12.8 % (11.6-14.6); RBC Distribution Width SD 42.1 fl (35.1-43.9); Red Blood Count 5.03 M/mm3 (4.6-6.2); White Blood Count 8.4 K/mm3 (4.4-11.0)
[2022-07-08 12:27] LABS: ALB/GLOB Ratio 0.9 RATIO (0.9-2.4); AST(SGOT) 29 U/L (15-37); Alanine Aminotransfer ALT/SGPT 41 U/L (16-61); Albumin, Serum 3.8 g/dL (3.2-5.0); Alkaline Phosphatase 107 U/L (45-117); Anion Gap 3 (5-15); BUN 18 mg/dL (7-18); BUN/Creat Ratio 14.4 RATIO (10-20); Calcium,Total 9.3 mg/dL (8.5-10.1); Chloride 104 mmol/L (98-107); Cholesterol 118 mg/dL (200); Creatinine, Serum 1.25 mg/dL (0.70-1.30); EST Glomerular Filtration Rate 61 mL/min (>60); Est Glom Filt Rate - Afr Amer 73 mL/min (>60); Globulin 4.1 g/dL (2.2-4.2); Glucose 79 mg/dL (74-106); High Density Lipoprotein 50 mg/dL; PSA,Total - Annual Screen 0.44 ng/mL (0.00-4.00); Potassium 3.8 mmol/L (3.5-5.1); Protein, Total 7.9 g/dL (6.4-8.2); Sodium Level 137 mmol/L (136-145); Triglycerides 52 mg/dL; Very Low Density Lipoprotein 10 mg/dL (5-40)
[2022-07-08 12:35] LABS: Creatinine, Urine (random) < 13.00 mg/dL (NO RANGE EST.); Microalbumin,Random Urine < 5.0 mg/L (NO RANGE EST.)
== END | disposition home or self-care (01) ==
LOC: BFHLAB 09:16
PROVIDERS: PCP Family Medicine; Referring Provider Family Medicine; Visit Provider Family Medicine
DX: I12.9 Hypertensive chronic kidney disease with stage 1 through stage 4 chronic kidney disease, or unspecified chronic kidney disease (principal); E11.59 Type 2 diabetes mellitus with other circulatory complications; N18.31 Chronic kidney disease, stage 3a; Z12.5 Encounter for screening for malignant neoplasm of prostate; I25.10 Atherosclerotic heart disease of native coronary artery without angina pectoris
CPT/HCPCS: 36415; 80053; 80061; 82043; 82570; 84153; 85025; G0103

== ENCOUNTER 2023-04-22 08:15 | Day surgery (SDC) | payer MEDICARE, OTHER, SELFPAY ==
[2023-04-16 11:59] LABS: Bacteria 0 SEEN /hpf (None Seen); Mucous, Urine 0 SEEN /hpf (<or=2+); Red Blood Cells-Urine 0 SEEN /hpf (0-5); Squamous Epithelial Cells - UA 0 SEEN /hpf (0-5); White Blood Cells 0 SEEN /hpf (0-5)
[2023-04-16 12:21] LABS: Color, Urine Yellow (Yellow); Glucose, Dipstick 1000 mg/dl (Normal); Hematocrit 47.5 % (40-54); Hemoglobin 15.2 g/dL (13.0-16.5); Ketone-Dipstick Negative (Negative); Leukocyte Esterase-Dipstick Negative /ul (Negative); Mean Corpuscular Hgb 29.2 pg (27.0-32.0); Mean Corpuscular Volume 91.3 fL (80-94); Mean Platelet Vol. 8.9 fl (6.2-12.0); Nitrite-Dipstick Negative (Negative); Occult Blood-Urine Negative /ul (Negative); Platelet Count 257 K/mm3 (150-450); Protein-Dipstick Negative (Negative); RBC Distribution Width CV 13.2 % (11.6-14.6); RBC Distribution Width SD 44.6 fl (35.1-43.9); Urine Bilirubin Dipstick Negative (Negative); Urine Clarity Clear (Clear); Urine Urobilinogen Normal (Normal); White Blood Count 5.4 K/mm3 (4.4-11.0)
[2023-04-16 12:33] LABS: International Normalized Ratio 1.6; Prothrombin Time (Protime)PT. 19.2 SECONDS (11.7-14.9)
[2023-04-16 13:00] LABS: Anion Gap 2 (5-15); BUN 25 mg/dL (7-18); BUN/Creat Ratio 19.2 RATIO (10-20); Calcium,Total 9.7 mg/dL (8.5-10.1); Chloride 109 mmol/L (98-107); EST Glomerular Filtration Rate 58 mL/min (>60); Est Glom Filt Rate - Afr Amer 70 mL/min (>60); Glucose 73 mg/dL (74-106); Potassium 4.2 mmol/L (3.5-5.1); Sodium Level 142 mmol/L (136-145)
[2023-04-21 07:08] VITALS: BMI 28.8
--- OUTSIDE RECORDS SUMMARY | 2023-04-22 08:32 | XMS RPT_ITS | CCD ---
Author Name Unknown Address [address] [place] [address] Organization [facility] Care Team Providers Care Cardiovascular Or Nurse Name Role Phone Lashon PAT, Yajaira Chiu Unavailable Unavailable ADILIA Grissom, Eileen Blanco Unavailable Unavailable TESTRAKE, CLAIRE Unavailable Unavailable TESTRAKE, CLAIRE Unavailable Unavailable TESTRAKE, CLAIRE Unavailable Unavailable TESTRAKE, CLAIRE Unavailable Unavailable Jay Cedeño Unavailable Stephen Jamil Unavailable UnavailJay Carbone DO Primary Care Provider JAY CEDEÑO Primary Care Unavailable ARMEN SILVEIRA Attending Unavailable Allergies Allergy Classification Reported Allergen(s) Allergy Type Date of Onset Reaction(s) Facility (4 sources) penicillin; Translations: [PENICILLIN] Drug Allergy 5 sabina, TERRELL [facility] Work Phone: (2 sources) Penicillins; Translations: [PENICILLINS] Drug Intolerance 6 Unknown [facility] Medications Current Medications Medication Drug Class(es) Dates Sig (Normalized) Sig (Original) acetaminophen 500 mg oral tablet (1 source) take 2 tablets by mouth every six hours as needed acetaminophen (Tylenol) 500 mg tablet Take 2 tablets (1,000 mg) by mouth every 6 hours if needed for mild pain (1 - 3). 0 Active empagliflozin 10 mg oral tablet (1 source) Sodium-Glucose Cotransporter 2 Inhibitor take 1 tablet by mouth once daily empagliflozin (Jardiance) 10 mg Take 1 tablet (10 mg) by mouth once daily. 0 Active losartan potassium 25 mg oral tablet (2 sources) Angiotensin 2 Receptor Ava take 0.5 tablet by mouth once daily losartan (Cozaar) 25 mg tablet Take 0.5 tablets (12.5 mg) by mouth once daily. 0 Active Completed/Discontinued Medications Medication Drug Class(es) Dates Sig (Normalized) Sig (Original) acetaminophen 325 mg / HYDROcodone bitartrate 5 mg oral tablet (4 sources) Opioid Agonist Start: 05-10-2015 End: 05-15-2015 take 1-2 tablets by mouth every six hours as needed NORCO 5-325 MG TABS 1-2 tablets by mouth every 6hrs as needed HYDROCODONE-ACETA MINOPHEN [id number] Lisa Hagen RN apixaban 5 mg oral tablet (3 sources) Factor Xa Inhibitor Start: 06-07-2016 End: 02-10-2017 take 1 tablet by mouth twice daily ELIQUIS 5 MG TABS One tablet by mouth twice daily APIXABAN [id number] Jose Ulrich MD aspirin 325 mg oral tablet (5 sources) Nonsteroidal Anti-inflammatory Drug Start: 04-07-2015 take 1 tablet by mouth once daily ASPIRIN 325 MG TABS One tablet by mouth daily ASPIRIN [id number] Jay Aram Gala DO Problems Active Problems Problem Classification Problem Date Documented Date Episodic/Chronic Acute cerebrovascular disease (2 sources) Cerebrovascular accident; Translations: [Cerebral infarction, unspecified] Onset: 02-17-2015 02-17-2015 Chronic Coma; stupor; and brain damage (2 sources) Unresponsive 04-22-2021 Episodic Past or Other Problems Problem Classification Problem Date Documented Da te Episodic/Chronic Coronary atherosclerosis and other heart disease (2 sources) Presence of aortocoronary bypass graft; Translations: [Presence of aortocoronary bypass graft] Onset: 04-05-2015 04-05-2015 Episodic Phlebitis; thrombophlebitis and thromboembolism (2 sources) Thrombosis; Translations: [ST elevation (STEMI) myocardial infarction of unspecified site] Onset: 02-17-2015 02-17-2015 Episodic Unclassified (6 sources) Body mass index (BMI) 29.0-29.9, adult; Translations: [FH: Hypertension] Onset: 03-03-2015 Resolved: 04-05-2015 03-06-2015 Episodic Unclassified (4 sources) Warfarin therapy started; Translations: [FPC (current) use of anticoagulants] Onset: 11-01-2015 Resolved: 11-14-2016 11-01-2015 Results Test Name Value Interpretation Reference Range Facil ity Vital Signs Date Time Vital Sign Value Performing Clinician Facility 04-02-2023 17:46-0500 Diastolic blood pressure 71 mm[Hg] Armen Silveira DO Work Phone: [facility] 04-02-2023 17:46-0500 Heart rate 74 /min Armen Solanoersen DO Work Phone: [facility] 04-02-2023 17:46-0500 Respiratory rate 16 /min Armen Solanoersen DO Work Phone: [facility] 04-02-2023 17:46-0500 SaO2% (BldA) [Mass fraction] 98 % Armen Solanoersen DO Work Phone: [phone] [place] [address] 04-02-2023 17:46-0500 Systolic blood pressure 139 mm[Hg] Armen Solanoersen DO Work Phone: [phone] [place] [address] 04-02-2023 15:49-0500 Body height 175.3 cm Armen Solanoersen DO Work Phone: [phone] [place] [address] 04-02-2023 15:49-0500 Body mass index (BMI) [Ratio] 29.53 kg/m2 Armen Silveira DO Work Phone: [facility] 04-02-2023 15:49-0500 Body temperature 96.49 [degF] Armen Solanoersen DO Work Phone: [facility] 04-02-2023 15:49-0500 Body weight 90.72 kg Armen Silveira DO Work Phone: [facility] 04-22-2021 04:00-0500 Diastolic blood pressure 75 mm[Hg] Jay Cedeño Other Phone: [facility] 04-22-2021 04:00-0500 Heart rate 63 /min Jay Cedeño Other Phone: [facility] 04-22-2021 04:00-0500 Systolic blood pressure 142 mm[Hg] Jay Cedeño Other Phone: [facility] 04-22-2021 03:24-0500 Body temperature 96.08 [degF] Jay Cedeño Other Phone: [facility] 04-22-2021 03:24-0500 Respiratory rate 20 /min Jay Cedeño Other Phone: [facility] 04-22-2021 03:24-0500 SaO2% (BldA) [Mass fraction] 97 % Jay Cedeño Other Phone: [facility] 11-14-2016 13:18-0400 BMI (Body Mass Index) 31.89 kg/m2 [facility] Work Phone: 11-14-2016 13:18-0400 BP Diastolic 62 mm[Hg] [facility] Work Phone: 11-14-2016 13:18-0400 BP Systolic 112 mm[Hg] [facility] Work Phone: 11-14-2016 13:18-0400 Height 175.26 cm [facility] Work Phone: 11-14-2016 13:18-0400 Pulse (Heart Rate) 74 /min [facility] Work Phone: 11-14-2016 13:18-0400 Respiratory Rate 18 /min [facility] Work Phone: 11-14-2016 13:18-0400 Weight 97.98 kg [facility] Work Phone: 05-09-2016 14:46-0500 BSA (Body Surface Area) 2.1 m2 [facility] Work Phone: 06-26-2015 08:53-0400 Body Temperature 98.3 [degF] Eileen Praveena, RN [facility] Work Phone: 05-15-2015 10:27-0500 Pulse Oximetry 98 % Eileen Grissom, ADILIA [facility] Work Phone: Encounters Encounter Date Encounter Type Care Provider Facility Start: 04-02-2023 End: 04-02-2023 Emergency department patient visit JAY Chiu [facility] Start: 04-02-2023 End: 04-02-2023 Emergency department patient visit Armen Silveira DO Work Phone: [facility] Emergency Medicine Procedures Date Procedure Procedure Detail Performing Clinician Start: 04-02-2023 EXTRA URINE TRINIDAD TUBE Bella ESPINOZAMAN Start: 04-02-2023 URINALYSIS WITH REFL EX CULTURE AND MICROSCOPIC JAY CEDEÑO Start: 04-02-2023 Basic metabolic 2000 panel - Serum or Plasma JAY BERNARDGALA Start: 04-02-2023 CBC W Auto Different ial panel - Blood JAY [facility] Start: 04-02-2023 Glucose [Mass/volume ] in Serum or Plasma JAY [facility] Start: 04-02-2023 Urnls dip stick/tabl et rgnt auto w/o microscopy Ivy Rivka PA-C Work Phone: Start: 04-02-2023 End: 04-02-2023 Basic metabolic panel calcium total Ivy Anneo PA-C Work Phone: Start: 04-22-2021 End: 04-22-2021 EKG impression Stephen Jamil Start: 01-06-2017 End: 01-07-2017 Prgrmng dev eval implantable in persn 1 ld dfb Jose Ulrich MD Work Phone: Start: 10-07-2016 End: 11-07-2016 Follow Up Appt 3 months Jose Ulrich MD Work Phone: Start: 10-07-2016 End: 10-08-2016 Interrogation eval remote 90 d 1/2/legal research analyst ld dfb Jose Ulrich MD Work Phone: Start: 10-07-2016 End: 11-07-2016 Pacer Clinic Jose Ulrich MD Work Phone: Start: 07-08-2016 End: 11-07-2016 Follow Up Appt 3 months Jose Urlich MD Work Phone: Start: 07-08-2016 End: 07-08-2016 Interrogation eval remote 90 d 1/2/legal research analyst ld dfb Jose Ulrich MD Work Phone: Start: 07-08-2016 End: 11-07-2016 Pacer Clinic Jose Ulrich MD Work Phone: Start: 05-09-2016 End: 05-09-2016 DJN Jose Ulrich MD Work Phone: Start: 05-09-2016 End: 05-09-2016 Follow Up Appt 6 months Jose Ulrich MD Work Phone: Start: 04-08-2016 End: 04-26-2016 Follow Up Appt 3 months Lisa cantu PA-C Work Phone: Start: 04-08-2016 End: 04-08-2016 Interrogation eval remote 90 d 1/2/legal research analyst ld dfb Lisa Seo PA-C Work Phone: Start: 04-08-2016 End: 04-26-2016 Pacer Clinic Lisa Seo PA-C Work Phone: Start: 03-07-2016 End: 03-08-2016 Referral to meeting manager Jose andrea MD Work Phone: Start: 02-06-2016 End: 02-06-2016 *Hepatic Function Panel Jose Ulrich MD Work Phone: Start: 02-06-2016 End: 02-06-2016 Hemoglobin glycosylated a1c Jose andrea MD Work Phone: Start: 02-06-2016 End: 02-06-2016 Lipid 1996 panel - Serum or Plasma Jose Ulrich MD Work Phone: Start: 02-06-2016 End: 02-06-2016 Prostate specific Ag [Mass/volume] in Serum or Plasma Jose Ulrich MD Work Phone: Start: 01-02-2016 End: 03-22-2016 Follow Up Appt 3 months Jose Ulrich MD Work Phone: Start: 01-02-2016 End: 01-02-2016 Interrogation eval remote 90 d 1/2/legal research analyst ld dfb Jose Ulrich MD Work Phone: Start: 01-02-2016 End: 03-22-2016 Pacer Clinic Jose Ulrich MD Work Phone: Start: 11-01-2015 End: 11-01-2015 INR in Platelet poor plasma by Coagulation assay Jose Ulrich MD Work Phone: Start: 10-02-2015 End: 03-22-2016 Follow Up Appt 3 months Jose Ulrich MD Work Phone: Start: 10-02-2015 End: 03-22-2016 Pacer Clinic Jose Ulrich MD Work Phone: Start: 10-02-2015 End: 10-02-2015 Prgrmng dev eval implantable in persn 1 ld dfb Jose Ulrich MD Work Phone: Start: 09-11-2015 End: 03-22-2016 Follow Up Appt 1 month Jose Ulrich MD Work Phone: Start: 09-11-2015 End: 09-19-2015 Interrogation eval remote 90 d 1/2/legal research analyst ld dfb Jose Ulrich MD Work Phone: Start: 09-11-2015 End: 03-22-2016 Pacer Clinic Jose Ulrich MD Work Phone: Start: 09-05-2015 End: 09-05-2015 *Hepatic Function Panel Jose Ulrich MD Work Phone: Start: 09-05-2015 End: 09-05-2015 DJN Jose Ulrich MD Work Phone: Start: 09-05-2015 End: 09-05-2015 Follow Up Appt 6 months Jose Ulrich MD Work Phone: Start: 09-05-2015 End: 09-05-2015 Lipid 1996 panel - Serum or Plasma Jose Ulrich MD Work Phone: Start: 08-30-2015 End: 09-05-2015 Follow Up Appt 1 month Lisa mojica PA-C Work Phone: Start: 08-30-2015 End: 08-30-2015 Nurse, Teaching, Wound Check (no charge) Lisa Seo PA-C Work Phone: Start: 08-30-2015 End: 09-05-2015 Pacer Clinic Lisa Seo PA-C Work Phone: Start: 08-25-2015 End: 08-26-2015 SNOMED-CT: [id number] Report of clinical encounter Jose Ulrich MD Work Phone: Start: 06-26-2015 End: 06-26-2015 Hemoglobin glycosylated a1c Jay denies DO Work Phone: Start: 05-15-2015 End: 09-05-2015 *Hepatic Function Panel Jose Ulrich MD Work Phone: Start: 05-15-2015 End: 08-30-2015 DJN Jose Ulrich MD Work Phone: Start: 05-15-2015 End: 05-15-2015 Ecg routine ecg w/least 12 lds w/i&r Jose Ulrich MD Work Phone: Start: 05-15-2015 End: 09-05-2015 Echocardiography Jose Ulrich MD Work Phone: Start: 05-15-2015 End: 08-30-2015 Follow Up Appt 3 months Jose Ulrich MD Work Phone: Start: 05-15-2015 End: 09-05-2015 Lipid 1996 panel - Serum or Plasma Jose Ulrich MD Work Phone: Start: 05-15-2015 End: 05-16-2015 Referral to modeling and simulation analyst Jose Ulrich MD Work Phone: Start: 04-03-2015 End: 08-30-2015 Echocardiography Jose Ulrich MD Work Phone: Start: 04-03-2015 End: 08-30-2015 Lipid 1996 panel - Serum or Plasma Jose Ulrich MD Work Phone: Start: 03-14-2015 End: 03-14-2015 *BMP Jose Ulrich MD Work Phone: Start: 03-14-2015 End: 03-14-2015 CBC W Auto Differential panel - Blood Jose Ulrich MD Work Phone: Start: 03-14-2015 End: 03-22-2015 Ecg routine ecg w/least 12 lds w/i&r [place] Oliva Walton MD Start: 03-06-2015 End: 03-06-2015 *Hepatic Function Panel Jose Ulrich MD Work Phone: Start: 03-06-2015 End: 03-06-2015 DJN Jose Ulrich MD Work Phone: Start: 03-06-2015 End: 03-06-2015 Follow Up Appt 6 months Jose Ulrich MD Work Phone: Start: 03-06-2015 End: 04-27-2015 INR in Platelet poor plasma by Coagulation assay Jose Ulrich MD Work Phone: Start: 03-06-2015 End: 03-22-2015 Left Heart Cath Jose Ulrich MD Work Phone: Start: 03-06-2015 End: 03-06-2015 Lipid 1996 panel - Serum or Plasma Jose Ulrich MD Work Phone: Start: 03-01-2015 End: 03-16-2016 INR in Platelet poor plasma by Coagulation assay Jose Ulrich MD Work Phone: Plan of Treatment Date Care Activity Detail Author Start: 04-02-2024 Diabetes mellitus screening Diabetes Screening [facility] Start: 11-15-2022 Influenza vaccination Influenza Vaccine (#1) [facility] Start: 04-22-2021 End: 04-23-2022 Ondansetron Injectable 4 mg IntraVenous Push Every 6 Hours PRN ; (ZOFRAN)DOSE = 4 mg IntraVenous Push Once Start: 22-Apr-2021 End: 22-Apr-2022 Ordered: 22-Apr-2021 Stephen Jamil [facility] Start: 06-23-2017 End: 06-23-2017 Appointment Appointment [facility] Work Phone: Start: 04-09-2017 End: 04-09-2017 Appointment Appointment [facility] Work Phone: Start: 01-06-2017 End: 01-07-2017 Follow Up Appt 3 months Follow Up Appt 3 months [facility] Work Phone: Start: 01-06-2017 End: 01-07-2017 Pacer Clinic [facility] Work Phone: Start: 11-14-2016 End: 11-14-2016 JESIKA CANCHOLA [facility] Work Phone: Start: 11-14-2016 End: 11-14-2016 Follow Up Appt 6 months Follow Up Appt 6 months [facility] Work Phone: Start: 10-07-2016 End: 11-07-2016 Follow Up Appt 3 months Follow Up Appt 3 months [facility] Work Phone: Start: 10-07-2016 End: 11-07-2016 Pacer Clinic Pacer Clinic [facility] Work Phone: Start: 08-05-2016 End: 02-06-2016 *Hepatic Function Panel *Hepatic Function Panel [facility] Work Phone: Start: 08-05-2016 End: 02-06-2016 Lipid panel [AGGREGATE] *Lipid Profile CC PCP [facility] Work Phone: Start: 07-08-2016 End: 11-07-2016 Follow Up Appt 3 months Follow Up Appt 3 months [facility] Work Phone: Start: 07-08-2016 End: 11-07-2016 Pacer Clinic [facility] Work Phone: Start: 05-09-2016 End: 05-09-2016 JESIKA CANCHOLA [facility] Work Phone: Start: 05-09-2016 End: 05-09-2016 Follow Up Appt 6 months Follow Up Appt 6 months [facility] Work Phone: Start: 2016 Pneumococcal Vaccine: 65+ Years (2 - PCV) Pneumococcal Vaccine: 65+ Years (2 - PCV) [facility] Start: 04-08-2016 End: 04-26-2016 Follow Up Appt 3 months Follow Up Appt 3 months [facility] Work Phone: Start: 04-08-2016 End: 04-26-2016 Pacer Clinic [facility] Work Phone: Start: 03-07-2016 End: 03-07-2016 Endocrinology Referral Endocrinology Referral Clarissa (BJ) OSMAN Marti, [address], [address], [facility], [place], [address] [facility] Work Phone: Start: 02-06-2016 End: 02-06-2016 *Hepatic Function Panel *Hepatic Function Panel [facility] Work Phone: Start: 02-06-2016 End: 02-06-2016 Hemoglobin A1c/Hemoglobin.total mass fraction (Bld) HGBA1C [facility] Work Phone: Start: 02-06-2016 End: 02-06-2016 Lipid panel [AGGREGATE] *Lipid Profile CC PCP [facility] Work Phone: Start: 02-06-2016 End: 02-06-2016 PSA *PSA, Annual Screening [facility] Work Phone: Start: 01-02-2016 End: 03-22-2016 Follow Up Appt 3 months Follow Up Appt 3 months [facility] Work Phone: Start: 01-02-2016 End: 03-22-2016 Pacer Clinic Pacer Clinic [facility] Work Phone: Start: 11-01-2015 End: 11-01-2015 INR Coag RelTime (PPP) *PT/INR - Standing Order [facility] Work Phone: Start: 10-02-2015 End: 03-22-2016 Follow Up Appt 3 months Follow Up Appt 3 months [facility] Work Phone: Start: 10-02-2015 End: 03-22-2016 Pacer Clinic [facility] Work Phone: Start: 09-11-2015 End: 03-22-2016 Follow Up Appt 1 month Follow Up Appt 1 month [facility] Work Phone: Start: 09-11-2015 End: 03-22-2016 Pacer Clinic [facility] Work Phone: Start: 09-05-2015 End: 09-05-2015 *Hepatic Function Panel *Hepatic Function Panel [facility] Work Phone: Start: 09-05-2015 End: 09-05-2015 DJN DJN [facility] Work Phone: Start: 09-05-2015 End: 09-05-2015 Follow Up Appt 6 months Follow Up Appt 6 months [facility] Work Phone: Start: 09-05-2015 End: 09-05-2015 Lipid panel [AGGREGATE] *Lipid Profile CC PCP [facility] Work Phone: Start: 08-30-2015 End: 09-05-2015 Follow Up Appt 1 month Follow Up Appt 1 month [facility] Work Phone: Start: 08-30-2015 End: 09-05-2015 Pacer Clinic [facility] Clinic [facility] Work Phone: Start: 05-15-2015 End: 09-05-2015 *Hepatic Function Panel *Hepatic Function Panel [facility] Work Phone: Start: 05-15-2015 End: 05-15-2015 Cardiac Rehab Card[facility] [address] [place], [address] [facility] Work Phone: Start: 05-15-2015 End: 08-30-2015 DJN DJDestini [facility] Work Phone: Start: 05-15-2015 End: 05-15-2015 Ecg routine ecg w/least 12 lds w/i&r EKG (In office) [facility] Work Phone: Start: 05-15-2015 End: 05-15-2015 Echocardiography Echocardiogram (complete) [facility] Work Phone: Start: 05-15-2015 End: 08-30-2015 Follow Up Appt 3 months Follow Up Appt 3 months [facility] Work Phone: Start: 05-15-2015 End: 09-05-2015 Lipid panel [AGGREGATE] *Lipid Profile CC PCP [facility] Work Phone: Start: 04-03-2015 End: 08-30-2015 *Hepatic Function Panel *Hepatic Function Panel [facility] Work Phone: Start: 04-03-2015 End: 08-30-2015 Lipid panel [AGGREGATE] *Lipid Profile CC PCP [facility] Work Phone: Start: 03-14-2015 End: 03-14-2015 *BMP *BMP [facility] Work Phone: Start: 03-14-2015 End: 03-14-2015 CBC W Auto Differential panel - Blood *CBC without Diff [facility] Work Phone: Start: 03-14-2015 End: 03-22-2015 Ecg routine ecg w/least 12 lds w/i&r EKG (In office) [facility] Work Phone: Start: 03-06-2015 End: 03-06-2015 *Hepatic Function Panel *Hepatic Function Panel [facility] Work Phone: Start: 03-06-2015 End: 03-06-2015 DJN DJN [facility] Work Phone: Start: 03-06-2015 End: 03-06-2015 Follow Up Appt 6 months Follow Up Appt 6 months [facility] Work Phone: Start: 03-06-2015 End: 04-27-2015 INR Coag RelTime (PPP) *PT/INR - Standing Order [facility] Work Phone: Start: 03-06-2015 End: 03-06-2015 Left Heart Cath Left Heart Cath [facility] Work Phone: Start: 03-06-2015 End: 03-06-2015 Lipid panel [AGGREGATE] *Lipid Profile CC PCP [facility] Work Phone: Start: 03-01-2015 End: 03-03-2015 INR Coag RelTime (PPP) [facility] Work Phone: Start: 02-20-2015 End: 02-20-2015 [email or web address] [email or web address] [facility] Work Phone: Start: 2001 Zoster Vaccines (1 of 2) Zoster Vaccines (1 of 2) [facility] Start: 1973 DTaP/Tdap/Td Vaccines (1 - Tdap) DTaP/Tdap/Td Vaccines (1 - Tdap) [facility] Start: 1969 Hepatitis C screening Hepatitis C Screening [facility] Start: 1950 COVID-19 Vaccine (#1) COVID-19 Vaccine (#1) [facility] Start: 1950 Lipid panel Lipid Panel [facility] Start: 1950 Medicare Annual Wellness Visit Medicare Annual Wellness Visit (AWV) [facility] Start: 1950 Screening for malignant neoplasm of colon [facility] End: 04-02-2023 Extra Urine Trinidad Tube [facility] Work Phone: Payers Date Payer Category Payer Medicare MEDICARE MEDICAR E PART A AND B [id number] 2016-Present [address] [place] [address] [id number] 2016 Medicare [id number] 2016 Unknown 2016 Unknown [id number] 1950 Unknown [id number] Social History Date Type Detail Facility [facility] Tobacco smoking consumption unknown [facility] Start: 04-02-2023 Tobacco smoking status NHIS Never smoked tobacco [facility] Work Phone: Start: 04-02-2023 Tobacco use and exposure Smokeless tobacco non-user [facility] Work Phone: Start: 04-02-2023 History of Social function [facility] Work Phone: Start: 04-02-2023 Tobacco use panel [facility] Work Phone: Start: 1950 Sex Assigned At Not on file [facility] Work Phone: Start: 03-23-2023 End: 04-02-2023 Exposure to SARS-CoV-2 (event) Not sure [facility] Evaluation note Note Date & Type Note Facility documented in this encounter [facility] Work Phone: Summary Purpose Family History No Family History Records FoundNo Family History Records FoundNo Family History Records FoundNo Family History Records Found Advance Directives No Advanced Directives Records FoundNo Advanced Directives Records FoundNo Advanced Directives Records FoundNo Advanced Directives Records Found Additional Source Comments (unrecognized sect ion and content) No Status Records FoundNo Status Records FoundNo Status Records FoundNo Status Records Found INFORMATION SOURCE (unrecogn ized section and content) DATE CREATED AUTHOR AUTHOR'S ORGANIZ ATION 09/10/2017 [facility] DATE CREATED AUTHOR AUTHOR'S ORGANIZ ATION 04/26/2021 [facility] DATE CREATED AUTHOR AUTHOR'S SARA TONY 04/08/2023 [facility] <item> Privacy Markings (unrecogniz ed section and content) Section Author: Destiny Espinosa PROHIBITION ON REDISCLOSURE OF CONFIDENTIAL INFORMATION This notice accompanies a disclosure of information concerning a client made to you with the consent of such client. Reason for Visit (unrecogniz ed section and content) Scheduled Active and Recently Administ ered Medications (unrecognized section and content) Care Teams (unrecognized sec tion and content) FOR RECORDS PERTAINING TO PATIENTS WHO ARE OR HAVE BEEN ENROLLED IN A CHEMICAL DEPENDENCY/SUBSTANCEABUSE PROGRAM, SOME INFORMATION MAY BE OMITTED. This clinical summary was aggregated from multiple sources. Caution should be exercised in using it in the provision of clinical care. This summary normalizes information from multiple sources, and as a consequence, information in this document may materially change the coding, format and clinical context of patient data. In addition, data may be omitted in some cases. CLINICAL DECISIONS SHOULD BE BASED ON THE PRIMARY CLINICAL RECORDS. [employer] [facility]. provides no warranty or guarantee of the accuracy or completeness of information in this document.
--- NOTE | 2023-04-22 10:35 | EX.DEFIBPROC ---
Defibrillator Procedure Note Defibrillator Procedure Note Device Adryan Prather is a 72 year old male who has a past medical history of an ischemic cardiomyopathy s/p single chamber ICD and diabetes who presented to the [facility] lab for a single chamber ICD generator changeout. The patient was brought to the electrophysiology laboratory in a fasting state. Sedation provided by nurse staff and monitored by myself. The left shoulder area was prepped and draped in the usual manner and the skin and subcutaneous tissues below the left clavicle were infiltrated with 1% lidocaine for local anesthesia. The skin was sharply incised. Electrocautery and blunt dissection were carried out to the level of the pectoralis fascia to the level of the pulse generator. The device was removed from the pocket. The lead was removed from the generator, inspected and cleaned. The new generator was attached to the lead, with stable parameters. The generator was placed in the pocket and copiously irrigated. The pocket was noted to have an absence of active bleeding. The incision was closed with two layers of 3-0 Vicryl and a subcuticular closure of 4-0 Vicryl. The incision was dressed with steri-strips Conclusions Successful ICD generator changeout with adequate pacing threshold, sensing and lead impedance. Recommendations 1. Routine device checks in [place] 2. Hold Xarelto for 48hrs 3. Routine wound care per protocol 4. Discharge later today.
== END 2023-04-22 11:45 | disposition home or self-care (01) ==
LOC: CLSP 08:16
PROVIDERS: Internal Medicine Cardiovascular Disease; PCP Family Medicine; Referring Provider Internal Medicine; Visit Provider Internal Medicine
DX: Z45.2 Encounter for adjustment and management of vascular access device (principal); I50.22 Chronic systolic (congestive) heart failure; I11.0 Hypertensive heart disease with heart failure; Z79.4 Long term (current) use of insulin; E11.9 Type 2 diabetes mellitus without complications; I25.5 Ischemic cardiomyopathy; Z79.82 Long term (current) use of aspirin; Z79.899 Other long term (current) drug therapy; I25.10 Atherosclerotic heart disease of native coronary artery without angina pectoris; E78.00 Pure hypercholesterolemia, unspecified; K21.9 Gastro-esophageal reflux disease without esophagitis; Z95.1 Presence of aortocoronary bypass graft; Z95.810 Presence of automatic (implantable) cardiac defibrillator
CPT/HCPCS: 33262; 33264; 36415; 80048; 81001; 85027; 85610; 93005; 93641; 99152; 99153; J7040; J7050

== ENCOUNTER → 2023-10-23 | Outpatient (CLI) | payer MEDICARE, OTHER, SELFPAY ==
--- NOTE | 2023-10-23 12:15 | STRESSREP_ITS ---
Stress Test Report Pharmacologic myocardial perfusion stress test. 73-year-old man with a history of cardiomyopathy Resting EKG demonstrates sinus rhythm with a rate of 63 bpm. Resting blood pressure is 128/80 mmHg. 0.4 mg of regadenoson was infused per usual protocol followed by rapid intravenous saline flush injection. Continuous EKG monitoring was performed. The maximum heart rate was [76] bpm which was [52% ]of max impacted heart rate the maximum workload was 1 metabolic equivalent. At rest there were no ST or T wave changes noted to suggest ischemia and at peak infusion nonspecific ST changes were noted which did not meet the criteria for ischemia. No clinical angina is noted. The final blood pressure was [162/60 ]mmHg. Myocardial perfusion protocol. [11.2 ] mCi of technetium 99m sestamibi was injected at rest. 0.4 mg of regadenoson was infused per usual protocol. At peak infusion [32.1] mCi of technetium 99m sestamibi was injected stress images were obtained stress and rest images were reconstructed and compared in the short axis vertical long and horizontal long axis. Gated images were also obtained. Perfusion SPECT analysis: Review of the stress images demonstrate normal uptake of tracer noted in all areas of the myocardium. The resting images similar demonstrated normal uptake of tracer noted in all areas of the myocardium. No areas of reversibility are noted to suggest ischemia and no previous infarct is noted. Gated SPECT analysis: The gated ejection fraction is [87%]. Conclusion: [Normal] pharmacologic myocardial perfusion stress test. [Preserved] ejection fraction.
--- NOTE | 2023-10-23 12:15 | STRESSREP ---
Stress Test Report Pharmacologic myocardial perfusion stress test. 73-year-old man with a history of cardiomyopathy Resting EKG demonstrates sinus rhythm with a rate of 63 bpm. Resting blood pressure is 128/80 mmHg. 0.4 mg of regadenoson was infused per usual protocol followed by rapid intravenous saline flush injection. Continuous EKG monitoring was performed. The maximum heart rate was 80] bpm which was 54%of max impacted heart rate the maximum workload was 1 metabolic equivalent. At rest there were no ST or T wave changes noted to suggest ischemia and at peak infusion nonspecific ST changes were noted which did not meet the criteria for ischemia. No clinical angina is noted. The final blood pressure was 132/80mmHg. Myocardial perfusion protocol. 13.5 mCi of technetium 99m sestamibi was injected at rest. 0.4 mg of regadenoson was infused per usual protocol. At peak infusion 39 mCi of technetium 99m sestamibi was injected stress images were obtained stress and rest images were reconstructed and compared in the short axis vertical long and horizontal long axis. Gated images were also obtained. Perfusion SPECT analysis: Review of the stress images demonstrate normal uptake of tracer with a large defect noted in the anterior wall septum and inferior wall. The resting images demonstrates te same. Gated SPECT analysis: The gated ejection fraction is reduced. Conclusion: Pharmacologic myocardial perfusion stress test with no ischemia.. Reduced ejection fraction. Cardiomyopathy
== END | disposition home or self-care (01) ==
LOC: CVS 06:01
PROVIDERS: PCP Family Medicine; Referring Provider Nurse Practitioner Gerontology; Visit Provider Nurse Practitioner Gerontology
DX: I25.10 Atherosclerotic heart disease of native coronary artery without angina pectoris (principal); Z95.1 Presence of aortocoronary bypass graft
CPT/HCPCS: 78452; 93017; A9500; A4216; J2785

== ENCOUNTER → 2024-01-13 | Outpatient (CLI) | payer MEDICARE, OTHER, SELFPAY ==
--- NOTE | 2024-01-13 06:51 | CT_ITS ---
STUDY: CT CHEST WITH CONTRAST REASON FOR EXAM: Male, 73 years old. FU LUNG NODULE RADIATION DOSAGE (If Supplied By Facility): CTDIvol = ( 19.89 ) mGy, DLP = ( 718.86 ) mGycm TECHNIQUE: Transaxial imaging was performed following intravenous administration of IV 100mL Isovue-370. Multiplanar coronal and sagittal images were reformatted. Individualized dose optimization techniques were used for this CT. COMPARISON: Comparison is made with prior study dated May 14, 2022. FINDINGS: CHEST Stable 8 mm well-defined noncalcified nodule in the anterior lateral aspect of the right upper lobe as seen on axial image #30. Stable minimal linear scarring at the left lung base. There is no demonstrated pleural abnormality. Sternal cerclage wires and vascular clips are present from a prior sternotomy and coronary artery bypass graft procedure (CABG). There are calcifications of the coronary arteries. A left-sided pacemaker is seen. There are multiple small lymph nodes within the mediastinum, which are normal in size and morphology most compatible with reactive lymph hyperplasia. Normal hilar regions. Normal unenhanced pulmonary arteries. There is scattered atherosclerotic calcification of the aortic arch. There are degenerative changes of the thoracic spine. Stable 1.1 cm hypodense nodule in the medial limb of the left adrenal gland suggestive of adenoma. Stable cortical defect in the upper aspect of the right kidney. CT/Chest WITH Contrast IMPRESSION: Stable examination. Electronically Signed: Vivek Stone MD at 13:47 EDT ,
--- OUTSIDE RECORDS SUMMARY | 2024-01-13 06:51 | XMS RPT_ITS | CCD ---
Author Organization [facility] Inform ion [facility] Care Team Providers Care Squadron Worker Name Role Phone Lashon PAT, Yajaira Chiu Unavailable Unavailable ADILIA Grissom, Eileen M Unavailable Unavailable TESTRAKE, CLAIRE Unavailable Unavailable TESTRAKE, CLAIRE Unavailable Unavailable TESTRAKE, CLAIRE Unavailable Unavailable TESTRAKE, CLAIRE Unavailable Unavailable Raquel, Jay A Unavailable Stephen Carias Unavailable Unavailabl e Raquel DO, Jay A Primary Care Provider Raquel DO, Jay A Primary Care Provider RAQUEL, JAY A Primary Care Unavailable KWAN MESA Attending Unavailable RAQUEL, JAY A Primary Care Unavailable MENDEZ ZACARIAS Attending Unavailable RAQUEL, JAY A Primary Care Unavailable RAQUEL, JAY A Primary Care Unavailable DANA MANDUJANO Attending Unavailable DANA MANDUJANO Referring Unavailable RAQUEL, JAY A Primary Care Unavailable RAQUEL, JAY A Primary Care Unavailable KWAN MESA Attending Unavailable MENDEZ ZACARIAS Referring Unavailable RAQUEL, JAY A Primary Care Unavailable Allergies Allergy Classification Reported Allergen(s) Allergy Type Date of Onset Reaction(s) Facility (4 sources) penicillin; Translations: [PENICILLIN] Drug Allergy 5 hives, [facility] Work Phone: (8 sources) Penicillins; Translations: [PENICILLINS] Drug Intolerance 6 Unknown [facility] (3 sources) Lisinopril; Translations: [LISINOPRIL] Drug Allergy 0 Cough [facility] Medications Current Medications Medication Drug Class(es) Dates Sig (Normalized) Sig (Original) acetaminophen 500 mg oral tablet (7 sources) take 2 tablets by mouth every six hours as needed acetaminophen (Tylenol) 500 mg tablet Take 2 tablets (1,000 mg) by mouth every 6 hours if needed for mild pain (1 - 3). Active empagliflozin 10 mg oral tablet (7 sources) Sodium-Glucose Cotransporter 2 Inhibitor take 1 tablet by mouth once daily empagliflozin (Jardiance) 10 mg Take 1 tablet (10 mg) by mouth once daily. Active glucagon (rdna) 1 mg injection (11 sources) Antihypoglycemic Agent Start: 07-31-2023 1 mg, intramuscular, Every 15 min PRN, low blood sugar - see comments, For blood glucose 41 to 70 mg/dL and no IV access, Starting on Gena 07/31/23 at 1734, Give until blood glucose is 100 mg/dL or greater. If patient DOES NOT HAVE secure IV access & patient is unconscious, NPO or is unable to eat or drink. Start: 04-02-2023 End: 04-02-2023 glucagon (Glucagen) injectio n 1 mg Start: 04-02-2023 End: 04-02-2023 glucagon (Glucagen) injectio n - Omnicell Override Pull inject 1 mg by subcu taneous injection once glucagon 1 mg injection Inject under the skin 1 time if needed for low blood sugar - see comments. Active 50 ml glucose 500 mg/ml prefilled syringe (4 sources) Start: 07-31-2023 12.5 g, intrav enous, Every 15 min PRN, For blood glucose 41 to 70 mg/dL, Starting on Gena 07/31/23 at 1734, May repeat until blood glucose level reaches 100 mg/dL or greater. Push 2 - 3 mL/minute if patient has secure IV access. Start: 04-02-2023 End: 04-02-2023 dextrose 50 % injection 25 m L Start: 04-02-2023 End: 04-02-2023 dextrose injection - Omnicel l Override Pull losartan potassium 25 mg oral tablet (8 sources) Angiotensin 2 Receptor Ava take 0.5 tablet by mouth once daily losartan (Cozaar) 25 mg tablet Take 0.5 tablets (12.5 mg) by mouth once daily. Active take 1 tablet by mouth once melinda y losartan 25 mg oral tablet ; 1 tab(s) orally once a day Quantity: 0 Refills: 0 Ordered: 22-Apr-2021 Yair Guzman Generic Substitution Allowed UNKNOWN TO PATIENT (7 sources) inject 4 [IU] by subcutaneous in jection once daily at dinner inject 4 [IU] by subcutaneous in jection once daily at dinner Completed/Discontinued Medications Medication Drug Class(es) Dates Sig (Normalized) Sig (Original) acetaminophen 325 mg / HYDROcodone bitartrate 5 mg oral tablet (4 sources) Opioid Agonist Start: 05-10-2015 End: 05-15-2015 take 1-2 tablets by mouth every six hours as needed NORCO 5-325 MG TABS 1-2 tablets by mouth every 6hrs as needed HYDROCODONE-ACETA MINOPHEN [id number] Lisa Hagen RN apixaban 5 mg oral tablet (3 sources) Factor Xa Inhibitor Start: 06-07-2016 End: 02-10-2017 take 1 tablet by mouth twice daily ELIQUIS 5 MG TABS One tablet by mouth twice daily APIXABAN [id number] Jose Ulrich MD aspirin 325 mg oral tablet (5 sources) Nonsteroidal Anti-inflammatory Drug Start: 04-07-2015 take 1 tablet by mouth once daily ASPIRIN 325 MG TABS One tablet by mouth daily ASPIRIN [id number] Jay Cedeño DO Start: 04-07-2015 take 1 tablet by betzaida th once daily ASPIRIN EC 81 MG TBEC One tablet by mouth daily ASPIRIN [id number] Jose Ulrich MD take 1 tablet by betzaida th once daily aspirin 81 mg oral tablet, chewable ; 1 tab(s) orally once a day Quantity: 0 Refills: 0 Ordered: 22-Apr-2021 Yair Guzman Generic Substitution Allowed atorvastatin 40 mg oral tablet (14 sources) HMG-CoA Reductase Inhibitor Start: 03-03-2015 take 1 tablet by mouth once daily ATORVASTATIN CALCIUM 40 MG TABS One tablet by mouth daily ATORVASTATIN CALCIUM [id number] Opal Milton RN Start: 03-03-2015 take 1 tablet by betzaida th once daily in the evening ATORVASTATIN CALCIUM 80 MG TABS One tablet by mouth every evening ATORVASTATIN CALCIUM [id number] Marycarmen Huggins NP carvedilol 3.125 mg oral tablet (14 sources) alpha-Adrenergic Ava, beta-Adrenergic Ava Start: 03-03-2015 take 1 tablet by mouth twice daily COREG 3.125 MG TABS One tablet by mouth twice daily CARVEDILOL [id number] Jay Cedeño DO Start: 03-03-2015 take 1 tablet by betzaida th twice daily COREG 6.25 MG TABS One tablet by mouth twice daily CARVEDILOL [id number] Marycarmen Huggins NP docusate sodium 100 mg oral capsule (4 sources) Start: 04-26-2015 End: 05-15-2015 take 1 tablet by mouth twice daily DOK 100 MG CAPS One tablet by mouth twice daily DOCUSATE SODIUM [id number] Jay Cedeño DO 0.8 ml enoxaparin sodium 100 mg/ml prefilled syringe (8 sources) Low Molecular Weight Heparin Start: 03-14-2015 End: 04-07-2015 LOVENOX 80 MG/0.8ML SOLN one subcutaneous injection on 03/20/15 and 03/21/15 in the morning and evening ENOXAPARIN SODIUM [id number] Opal Milton RN Start: 03-03-2015 End: 03-06-2015 LOVENOX 80 MG/0.8ML SOLN one subcutaneous injections twice daily ENOXAPARIN SODIUM [id number] Opal Milton RN furosemide 40 mg oral tablet (14 sources) Loop Diuretic Start: 03-03-2015 take 1 tablet by mouth once daily LASIX 40 MG TABS One tablet by mouth daily FUROSEMIDE [id number] Jose Ulrich MD Start: 03-03-2015 take 2 tablets by mo [facility] once daily LASIX 20 MG TABS Two tablets by mouth daily FUROSEMIDE [id number] Jose Ulrich MD Start: 03-03-2015 take 1 tablet by betzaida once daily LASIX 20 MG TABS One tablet by mouth daily FUROSEMIDE [id number] Opal Milton RN insulin glargine 100 unt/ml injectable solution (4 sources) Insulin Analogue Start: 05-10-2015 End: 06-26-2015 LANTUS 100 UNIT/ML SOLN as directed INSULIN GLARGINE [id number] Jay Cedeño DO insulin, aspart, human 100 unt/ml injectable solution (4 sources) Insulin Analogue Start: 03-03-2015 End: 06-26-2015 NOVOLOG 100 UNIT/ML SOLN as directed INSULIN ASPART [id number] Lisa Hagen RN lisinopril 2.5 mg oral tablet (6 sources) Angiotensin Converting Enzyme Inhibitor Start: 05-09-2016 take 1 tablet by mouth once daily LISINOPRIL 2.5 MG TABS One tablet by mouth daily LISINOPRIL [id number] Jose Ulrich MD Start: 04-26-2015 End: 05-10-2015 LISINOPRIL 5 MG TABS 1/2 tab let once daily LISINOPRIL [id number] Jay Cedeño DO MULTIPLE VITAMINS-MINERALS (2 sources) Start: 03-06-2015 take 1 tablet by mouth once daily CENTRUM TABS One tablet by mouth daily MULTIPLE VITAMINS-MINERALS [id number] Alexia Yanez insulin human, isophane 100 unt/ml injectable suspension (6 sources) Start: 06-26-2015 NOVOLIN N 100 UNIT/ML SUSP 10 U SQ twice daily INSULIN NPH HUMAN (ISOPHANE) [id number] Jay Cedeño DO Start: 04-26-2015 End: 05-10-2015 take 10 [IU] by subcutaneous injection twice daily NOVOLIN N 100 UNIT/ML SUSP 10 units SQ twice daily INSULIN NPH HUMAN (ISOPHANE) [id number] Lisa Hagen RN nph insulin, human / regular insulin, human (4 sources) Insulin Start: 03-03-2015 End: 04-26-2015 HUMULIN 70/30 PEN 70-30 % SUSP Take as directed INSULIN ISOPHANE & REGULAR Jay Cedeño DO Start: 03-03-2015 HUMULIN 70/30 PEN 70-30 % SUSP Take as directed INSULIN ISOPHANE & REGULAR Opal Milton RN pantoprazole 40 mg delayed release oral tablet (10 sources) Proton Pump Inhibitor Start: 04-07-2015 take 1 tablet by mouth once daily PANTOPRAZOLE SODIUM 40 MG TBEC One tablet by mouth daily PANTOPRAZOLE SODIUM [id number] Marycarmen Huggins NP potassium chloride 20 meq extended release oral tablet (10 sources) Start: 04-07-2015 take 1 tablet by mouth once daily POTASSIUM CHLORIDE ER 20 MEQ CR-TABS One tablet by mouth daily POTASSIUM CHLORIDE [id number] Marycarmen Huggins PICK UP MAN take 1 tablet by mouth once melinda y potassium chloride CR 20 mEq ER tablet Take 1 tablet (20 mEq) by mouth once daily. Do not crush or chew. Active regular insulin, human 100 unt/ml injectable solution (6 sources) Insulin Start: 03-03-2015 NOVOLIN R 100 UNIT/ML SOLN 7 U SQ with meals three times a day INSULIN REGULAR HUMAN [id number] [facility] Start: 03-03-2015 take 5 [IU] by subcu taneous injection at mealtime NOVOLIN R 100 UNIT/ML SOLN 5 units SQ with meals INSULIN REGULAR HUMAN [id number] [facility] rivaroxaban 20 mg oral tablet (9 sources) Factor Xa Inhibitor Start: 02-10-2017 take 1 tablet by mouth once daily XARELTO 20 MG TABS One tablet by mouth daily RIVAROXABAN [id number] Jose Ulrich MD tamsulosin hydrochloride 0.4 mg oral capsule (10 sources) alpha-Adrenergic Ava Start: 04-07-2015 take 1 tablet by mouth once daily TAMSULOSIN HCL 0.4 MG CAPS One tablet by mouth daily TAMSULOSIN HCL [id number] Marycarmen Huggins NP valsartan 80 mg oral tablet (4 sources) Angiotensin 2 Receptor Ava Start: 03-03-2015 End: 04-07-2015 take 1 tablet by mouth once daily DIOVAN 80 MG TABS One tablet by mouth daily VALSARTAN [id number] Opal Milton RN warfarin sodium 2 mg oral tablet (18 sources) Vitamin K Antagonist Start: 03-03-2015 End: 06-07-2016 take 1 tablet by mouth once daily, then take 5 tablets by mouth COUMADIN 2 MG TABS One tablet by mouth daily with a 5 mg tablet to = 7 mg every day WARFARIN SODIUM [id number] Yajaira Oates RN Start: 03-03-2015 COUMADIN 2.5 M G TABS Take as directed WARFARIN SODIUM [id number] Opal Milton RN Start: 03-03-2015 take 1 tablet by betzaida th once daily COUMADIN 4 MG TABS One tablet by mouth daily WARFARIN SODIUM [id number] Yajaira Oates RN Start: 03-03-2015 End: 06-07-2016 take 1 tablet by mouth once daily, then take 2 tablets by mouth COUMADIN 5 MG TABS One tablet by mouth daily with a 2 mg tablet to = 7 mg every day WARFARIN SODIUM [id number] Yajaira Oates RN Problems Active Problems Problem Classification Problem Date Documented Date Episodic/Chronic Acute cerebrovascular disease (2 sources) Cerebrovascular accident; Translations: [Cerebral infarction, unspecified] Onset: 02-17-2015 02-17-2015 Chronic Coma; stupor; and brain damage (2 sources) Unresponsive 04-22-2021 Episodic Comment on above: UNRESPONSIVE Conduction disorders (2 sources) Presence of automatic (implantable) cardiac defibrillator; Translations: [Presence of automatic (implantable) cardiac defibrillator] Onset: 09-05-2015 09-05-2015 Chronic Congestive heart failure; nonhypertensive (2 sources) Congestive heart failure due to left ventricular systolic dysfunction; Translations: [Left ventricular failure, unspecified] Onset: 02-17-2015 02-17-2015 Chronic Coronary atherosclerosis and other heart disease (14 sources) Old myocardial infarction; Translations: [Coronary arteriosclerosis in [place] artery] Onset: 02-17-2015 Resolved: 03-03-2015 02-17-2015 Chronic Diabetes mellitus with complications (2 sources) Type II diabetes mellitus uncontrolled; Translations: [Type 2 diabetes mellitus with hyperglycemia] Onset: 04-26-2015 06-26-2015 Chronic Diabetes mellitus without complication (2 sources) Type 2 diabetes mellitus well controlled; Translations: [Type 2 diabetes mellitus without complications] Onset: 04-26-2015 04-26-2015 Chronic Disorders of lipid metabolism (2 sources) Hyperlipidemia; Translations: [Hyperlipidemia, unspecified] Onset: 02-17-2015 02-17-2015 Chronic Essential hypertension (2 sources) Hypertensive disorder; Translations: [Essential (primary) hypertension] Onset: 02-17-2015 02-17-2015 Chronic Fluid and electrolyte disorders (2 sources) Hypokalemia; Translations: [Hypopotassemia] 04-22-2021 Episodic Occlusion or stenosis of precerebral arteries (2 sources) Carotid artery stenosis; Translations: [Occlusion and stenosis of bilateral carotid arteries] Onset: 03-03-2015 03-03-2015 Chronic Other endocrine disorders (7 sources) Hypoglycemia; Translations: [Hypoglycemia, unspecified] 04-22-2021 Chronic Other endocrine disorders (2 sources) Hypoglycemia, unspecified; Translations: [Hypoglycemia, unspecified] Onset: 04-02-2023 Chronic Ness-; endo-; and myocarditis; cardiomyopathy (2 sources) Cardiomyopathy; Translations: [Cardiomyopathy, unspecified] Onset: 03-03-2015 03-03-2015 Chronic Unclassified (2 sources) Body mass index (BMI) 30.0-30.9, adult; Translations: [Body mass index (BMI) 30.0-30.9, adult] Onset: 03-03-2015 03-03-2015 Chronic Unclassified (2 sources) Long-term drug therapy; Translations: [Other fci (current) drug therapy] Onset: 02-17-2015 02-17-2015 Unclassified (1 source) Other specified postprocedural states; Translations: [Other specified postprocedural states] Onset: 09-02-2016 Past or Other Problems Problem Classification Problem [...] Unclassified (4 sources) Warfarin therapy started; Translations: [detention (current) use of anticoagulants] Onset: 11-01-2015 Resolved: 11-14-2016 11-01-2015 Results Test Name Value Interpretation Reference Range Facility Ammoniaon 08-03-2023 Ammonia (P) [Moles/Vol] 10 umol/L Low 16 - 53 umol/L [facility] Ammonia (P) [Moles/Vol] 10 umol/L Low 16-53 [facility] Comment on above: Performed By: #### 5 7021-8 #### ULLOA MELY ([id number]) [facility] ([facility]) [address] [place] [address] Ammonia (P) [Moles/Vol]on Interpretation and review of laboratory results Abnormal [facility] CBC W Auto Differential pane l (Bld)on 08-03-2023 Basophils (Bld) [#/Vol] 0.03 10*3/uL [facility] Basophils/100 WBC (Bld) 0.3 % 0.0 - 2.0 % [facility] Eosinophils (Bld) [#/Vol] 0.08 10*3/uL [facility] Eosinophils/100 WBC (Bld) 0.9 % 0.0 - 6.0 % [facility] Erythrocyte distribution width (RBC) [Ratio] 13.5 % 11.5 - 14.5 % [facility] Hematocrit (Bld) [Volume fraction] 47.1 % 41.0 - 52.0 % [facility] Hemoglobin (Bld) [Mass/Vol] 15.1 g/dL 13.5 - 17.5 g/dL [facility] Immature granulocytes (Bld) [#/Vol] 0.04 10*3/uL [facility] Immature granulocytes/100 WBC (Bld) 0.4 % 0.0 - 0.9 % [facility] Comment on above: Immature Granulocyte Count (IG) includes promyelocytes, myelocytes and metamyelocytes but does not include bands. Percent differential counts (%) should be interpreted in the context of the absolute cell counts (cells/UL). Interpretation and review of laboratory results Abnormal [facility] Lymphocytes (Bld) [#/Vol] 1.34 10*3/uL [facility] Lymphocytes/100 WBC (Bld) 14.4 % 13.0 - 44.0 % [facility] MCH (RBC) [Entitic mass] 29.5 pg 26.0 - 34.0 pg [facility] MCHC (RBC) [Mass/Vol] 32.1 g/dL 32.0 - 36.0 g/dL [facility] MCV (RBC) [Entitic vol] 92 fL 80 - 100 fL [facility] Monocytes (Bld) [#/Vol] 0.63 10*3/uL [facility] Monocytes/100 WBC (Bld) 6.8 % 2.0 - 10.0 % [facility] Neutrophils (Bld) [#/Vol] 7.21 10*3/uL High [facility] Comment on above: Percent differential counts (%) should be interpreted in the context of the absolute cell counts (cells/uL). Neutrophils/100 WBC (Bld) 77.2 % 40.0 - 80.0 % [facility] Nucleated RBC/100 WBC (Bld) [Ratio] 0.0 % [facility] Platelets (Bld) [#/Vol] 237 10*3/uL [facility] RBC (Bld) [#/Vol] 5.12 10*6/uL [facility] WBC (Bld) [#/Vol] 9.3 10*3/uL [facility] Basophils (Bld) [#/Vol] 0.03 x10*3/uL Normal 0.00-0.10 [facility] Comment on above: Performed By: #### 2 341-6 #### LAILA BOONE ([id number]) [facility] ([facility]) [address] [place] [address] Basophils/100 WBC (Bld) 0.3 % Normal 0.0-2.0 [facility] Comment on above: Performed By: #### 2 341-6 #### LAILA BOONE ([id number]) [facility] ([facility]) [address] [place] [address] Eosinophils (Bld) [#/Vol] 0.08 x10*3/uL Normal 0.00-0.40 [facility] Comment on above: Performed By: #### 2 341-6 #### LAILA BOONE ([id number]) [facility] ([facility]) [address] [place] [address] 99710 Eosinophils/100 WBC (Bld) 0.9 % Normal 0.0-6.0 [facility] Comment on above: Performed By: #### 2 341-6 #### LAILA BOONE ([id number]) [facility] ([facility]) [address] [place] [address]1305 Erythrocyte distribution width (RBC) [Ratio] 13.5 % Normal 11.5-14.5 [facility] Comment on above: Performed By: #### 2 341-6 #### LAILA BOONE ([id number]) [facility] ([facility]) [address] [place] [address] Hematocrit (Bld) [Volume fraction] 47.1 % Normal 41.0-52.0 [facility] Comment on above: Performed By: #### 2 341-6 #### LAILA BOONE ([id number]) [facility] ([facility]) [address] [place] [address]56[address] Hemoglobin (Bld) [Mass/Vol] 15.1 g/dL Normal 13.5-17.5 [facility] Comment on above: Performed By: #### 2 341-6 #### LAILA BOONE ([id number]) [facility] ([facility]) [address] [place] [address]78[address] Immature granulocytes (Bld) [#/Vol] 0.04 x10*3/uL Normal 0.00-0.50 [facility] Comment on above: Performed By: #### 2 341-6 #### LAILA BOONE ([id number]) [facility] ([facility]) [address] [place] [address] Immature granulocytes/100 WBC (Bld) 0.4 % Normal 0.0-0.9 [facility] Comment on above: Result Comment: Sanjuanita ture Granulocyte Count (IG) includes promyelocytes, myelocytes and metamyelocytes but does not include bands. Percent differential counts (%) should be interpreted in the context of the absolute cell counts (cells/UL). Performed By: #### 2 341-6 #### LAILA BOONE ([id number]) [facility] ([facility]) [address] [place] [address] Lymphocytes (Bld) [#/Vol] 1.34 x10*3/uL Normal 0.80-3.00 [facility] Comment on above: Performed By: #### 2 341-6 #### LAILA BOONE ([id number]) [facility] ([facility]) [address] [place] [address] Lymphocytes/100 WBC (Bld) 14.4 % Normal 13.0-44.0 [facility] Comment on above: Performed By: #### 2 341-6 #### LAILA BOONE ([id number]) [facility] ([facility]) [address] [place] [address] MCH (RBC) [Entitic mass] 29.5 pg Normal 26.0-34.0 [facility] Comment on above: Performed By: #### 2 341-6 #### LAILA BOONE ([id number]) [facility] ([facility]) [address] [place] [address] MCHC (RBC) [Mass/Vol] 32.1 g/dL Normal 32.0-36.0 [facility] Comment on above: Performed By: #### 2 341-6 #### LAILA BOONE ([id number]) [facility] ([facility]) [address] [place] [address] MCV (RBC) [Entitic vol] 92 fL Normal 80-100 [facility] Comment on above: Performed By: #### 2 341-6 #### LAILA BOONE ([id number]) [facility] ([facility]) [address] [place], [place] [id number] Monocytes (Bld) [#/Vol] 0.63 x10*3/uL Normal 0.05-0.80 [facility] Comment on above: Performed By: #### 2 341-6 #### LAILA BOONE ([id number]) [facility] ([facility]) [address] [place] [address] Monocytes/100 WBC (Bld) 6.8 % Normal 2.0-10.0 [facility] Comment on above: Performed By: #### 2 341-6 #### LAILA BOONE ([id number]) [facility] ([facility]) [address] [place] [address] Neutrophils (Bld) [#/Vol] 7.21 x10*3/uL High 1.60-5.50 [facility] Comment on above: Result Comment: Perc ent differential counts (%) should be interpreted in the context of the absolute cell counts (cells/uL). Performed By: #### 2 341-6 #### LAILA BOONE ([id number]) [facility] ([facility]) [address] [place] [address] 88416 Neutrophils/100 WBC (Bld) 77.2 % Normal 40.0-80.0 [facility] Comment on above: Performed By: #### 2 341-6 #### LAILA BOONE ([id number]) [facility] ([facility]) [address] [place] [address] 46037 Nucleated RBC/100 WBC (Bld) [Ratio] 0.0 /100 WBCs Normal 0.0-0.0 [facility] Comment on above: Performed By: #### 2 341-6 #### LAILA BOONE ([id number]) [facility] ([facility]) [address] [place] [address]253 Platelets (Bld) [#/Vol] 237 x10*3/uL Normal 150-450 [facility] Comment on above: Performed By: #### 2 341-6 #### LAILA BOONE ([id number]) [facility] ([facility]) [address] [place] [address] 88390 RBC (Bld) [#/Vol] 5.12 x10*6/uL Normal 4.50-5.90 [facility] Comment on above: Performed By: #### 2 341-6 #### LAILA BOONE ([id number]) [facility] ([facility]) [address] [place] [address] WBC (Bld) [#/Vol] 9.3 x10*3/uL Normal 4.4-11.3 [facility] Comment on above: Performed By: #### 2 341-6 #### ULLOA MELY ([id number]) [facility] ([facility]) [address] [place] [address] CT HEAD WO IV CONTRASTon CT HEAD WO IV CONTRAST Interpreted By: Sp Matias, STUDY: CT HEAD WO IV CONTRAST; 08/03/2023 7:10 am INDICATION: Signs/Symptoms:altered loc. COMPARISON: None. ACCESSION NUMBER(S): [id number] ORDERING CLINICIAN: MENDEZ ZACARIAS TECHNIQUE: Noncontrast axial CT scan of head was performed. Angled reformats in brain and bone windows were generated. The images were reviewed in bone, brain, blood and soft tissue windows. FINDINGS: CSF Spaces: The ventricles, sulci and basal cisterns are prominent as in prior. There is no extraaxial fluid collection. Parenchyma: Mild cerebral volume loss. Unchanged sequelae of chronic microvascular ischemia. The santiago-white differentiation is intact. There is no mass effect or midline shift. There is no intracranial hemorrhage. Calvarium: The calvarium is unremarkable. Paranasal sinuses and mastoids: Visualized paranasal sinuses and mastoids are clear. IMPRESSION: 1. No acute intracranial hemorrhage or serious brain herniation. If continued clinical concern advise further assessment by dedicated brain MRI. 2. Mild cerebral volume loss and sequelae of chronic microvascular ischemia. MACRO: None Signed by: Sp Matias 08/03/2023 7:22 AM Dictation workstation: [id number] [facility] CT Head WO contraston 2023 1. No acute intracranial hemorrhage or serious brain herniation. If continued clinical concern advise further assessment by dedicated brain MRI. 2. Mild cerebral volume loss and sequelae of chronic microvascular ischemia. MACRO: None Signed by: Sp Matias 08/03/2023 7:22 AM Dictation workstation: [id number] MMODAL Interpreted By: Sp Matias, STUDY: CT HEAD WO IV CONTRAST; 08/03/2023 7:10 am INDICATION: Signs/Symptoms:altered loc. COMPARISON: None. ACCESSION NUMBER(S): [id number] ORDERING CLINICIAN: MENDEZ ZACARIAS TECHNIQUE: Noncontrast axial CT scan of head was performed. Angled reformats in brain and bone windows were generated. The images were reviewed in bone, brain, blood and soft tissue windows. FINDINGS: CSF Spaces: The ventricles, sulci and basal cisterns are prominent as in prior. There is no extraaxial fluid collection. Parenchyma: Mild cerebral volume loss. Unchanged sequelae of chronic microvascular ischemia. The santiago-white differentiation is intact. There is no mass effect or midline shift. There is no intracranial hemorrhage. Calvarium: The calvarium is unremarkable. Paranasal sinuses and mastoids: Visualized paranasal sinuses and mastoids are clear. MMODAL Sp Matias MD - 08/03/2023 Interpreted By: Sp Matias, STUDY: CT HEAD WO IV CONTRAST; 08/03/2023 7:10 am INDICATION: Signs/Symptoms:altered loc. COMPARISON: None. ACCESSION NUMBER(S): [id number] ORDERING CLINICIAN: MENDEZ ZACARIAS TECHNIQUE: Noncontrast axial CT scan of head was performed. Angled reformats in brain and bone windows were generated. The images were reviewed in bone, brain, blood and soft tissue windows. FINDINGS: CSF Spaces: The ventricles, sulci and basal cisterns are prominent as in prior. There is no extraaxial fluid collection. Parenchyma: Mild cerebral volume loss. Unchanged sequelae of chronic microvascular ischemia. The santiago-white differentiation is intact. There is no mass effect or midline shift. There is no intracranial hemorrhage. Calvarium: The calvarium is unremarkable. Paranasal sinuses and mastoids: Visualized paranasal sinuses and mastoids are clear. IMPRESSION: 1. No acute intracranial hemorrhage or serious brain herniation. If continued clinical concern advise further assessment by dedicated brain MRI. 2. Mild cerebral volume loss and sequelae of chronic microvascular ischemia. MACRO: None Signed by: Sp Matisa 08/03/2023 7:22 AM Dictation workstation: [id number] [facility] Work Phone: Radiology Study observation (narrative) [facility] Work Phone: CT Head WO contrastOrdered B y: Sp Matias on 08-03-2023 [facility] Work Phone: Comprehensive metabolic 2000 panelon 08-03-2023 Albumin BCP dye [Mass/Vol] 4.1 g/dL 3.4 - 5.0 g/dL [facility] ALP [Catalytic activity/Vol] 94 U/L 33 - 136 U/L [facility] ALT With P-5'-P [Catalytic activity/Vol] 31 U/L 10 - 52 U/L [facility] Comment on above: Patients treated wit h Sulfasalazine may generate falsely decreased results for ALT. Anion gap [Moles/Vol] 9 mmol/L Low 10 - 20 mmol/L [facility] AST With P-5'-P [Catalytic activity/Vol] 30 U/L 9 - 39 U/L [facility] Bilirubin [Mass/Vol] 0.9 mg/dL 0.0 - 1.2 mg/dL [facility] Calcium [Mass/Vol] 9.2 mg/dL 8.6 - 10. 3 mg/dL [facility] Chloride [Moles/Vol] 106 mmol/L 98 - 107 mmol/L [facility] CO2 [Moles/Vol] 30 mmol/L 21 - 32 mmol/L [facility] Creatinine [Mass/Vol] 1.16 mg/dL 0.50 - 1.30 mg/dL [facility] GFR/1.73 sq M.predicted among non-blacks MDRD (S/P/Bld) [Vol rate/Area] 67 mL/min/{1.73_m2} - PINF [facility] Comment on above: Calculations of debbie mated GFR are performed using the 2020 CKD-EPI Study Refit equation without the race variable for the IDMS-Traceable creatinine methods. https://jasn.asnjournals.org/content//ASN.71543105 88 Glucose [Mass/Vol] 75 mg/dL 74 - 99 mg/dL [facility] Interpretation and review of laboratory results Abnormal [facility] Potassium [Moles/Vol] 4.2 mmol/L 3.5 - 5.3 mmol/L [facility] Protein [Mass/Vol] 6.8 g/dL 6.4 - 8.2 g/dL [facility] Sodium [Moles/Vol] 141 mmol/L 136 - 145 mmol/L [facility] Urea nitrogen [Mass/Vol] 23 mg/dL 6 - 23 mg/dL [facility] Albumin BCP dye [Mass/Vol] 4.1 g/dL Normal 3.4-5.0 [facility] Comment on above: Performed By: #### 5 7021-8 #### LAILA BOONE ([id number]) [facility] ([facility]) [address] [place] [address] 10224 ALP [Catalytic activity/Vol] 94 U/L Normal 33-136 [facility] Comment on above: Performed By: #### 5 7021-8 #### LAILA BOONE ([id number]) [facility] ([facility]) [address] [place] [address] 98291 ALT With P-5'-P [Catalytic activity/Vol] 31 U/L Normal 10-52 [facility] Comment on above: Result Comment: Sheri ents treated with Sulfasalazine may generate falsely decreased results for ALT. Performed By: #### 5 7021-8 #### LAILA BOONE ([id number]) [facility] ([facility]) [address] [place] [address] 63492 Anion gap [Moles/Vol] 9 mmol/L Low 10-20 [facility] Comment on above: Performed By: #### 5 7021-8 #### LAILA BOONE ([id number]) [facility] ([facility]) [address] [place] [address] 35703 AST With P-5'-P [Catalytic activity/Vol] 30 U/L Normal 9-39 [facility] Comment on above: Performed By: #### 5 7021-8 #### LAILA BOONE ([id number]) [facility] ([facility]) [address] [place] [address] 64398 Bilirubin [Mass/Vol] 0.9 mg/dL Normal 0.0-1.2 [facility] Comment on above: Performed By: #### 5 7021-8 #### LAILA BOONE ([id number]) [facility] ([facility]) [address] [place] [address] 97116 Calcium [Mass/Vol] 9.2 mg/dL Normal 8.6-10.[address] [facility] Comment on above: Performed By: #### 5 7021-8 #### LAILA BOONE ([id number]) [facility] ([facility]) [address] [place] [address] 85829 Chloride [Moles/Vol] 106 mmol/L Normal 98-107 [facility] Comment on above: Performed By: #### 5 7021-8 #### LAILA BOONE ([id number]) [facility] ([facility]) [address] [place] [address] 94337 CO2 [Moles/Vol] 30 mmol/L Normal 21-32 [facility] Comment on above: Performed By: #### 5 7021-8 #### LAILA BOONE ([id number]) [facility] ([facility]) [address] [place] [address] 33713 Creatinine [Mass/Vol] 1.16 mg/dL Normal 0.50-1.30 [facility] Comment on above: Performed By: #### 5 7021-8 #### LAILA BOONE ([id number]) [facility] ([facility]) [address] [place] [address] 42801 Glomerular filtration rate/1.73 sq M.predicted 67 mL/min/1.73m*2 Normal >60 [facility] Comment on above: Result Comment: Calc ulations of estimated GFR are performed using the 2020 CKD-EPI Study Refit equation without the race variable for the IDMS-Traceable creatinine methods. https://jasn.asnjournals.org/content//ASN.66842704 88 Performed By: #### 5 7021-8 #### LAILA BOONE ([id number]) [facility] ([facility]) [address] [place] [address] 28913 Glucose [Mass/Vol] 75 mg/dL Normal 74-[address] [facility] Comment on above: Performed By: #### 5 7021-8 #### LAILA BOONE ([id number]) [facility] ([facility]) [address] [place] [address] 49008 Potassium [Moles/Vol] 4.2 mmol/L Normal 3.5-5.3 [facility] Comment on above: Performed By: #### 5 7021-8 #### LAILA BOONE ([id number]) [facility] ([facility]) [address] [place] [address] 64295 Protein [Mass/Vol] 6.8 g/dL Normal 6.4-8.[address] [facility] Comment on above: Performed By: #### 5 7021-8 #### LAILA BOONE ([id number]) [facility] ([facility]) [address] [place] [address] 73241 Sodium [Moles/Vol] 141 mmol/L Normal 136-[address] [facility] Comment on above: Performed By: #### 5 7021-8 #### LAILA BOONE ([id number]) [facility] ([facility]) [address] [place] [address] 96833 Urea nitrogen [Mass/Vol] 23 mg/dL Normal 6-23 [facility] Comment on above: Performed By: #### 5 7021-8 #### LAILA BOONE ([id number]) [facility] ([facility]) [address] [place] [address] 49378 ECG 12-LEADon 08-03-2023 ECG 12-LEAD Ventricular Rate 76 Atrial Rate 76 P-R Interval 220 QRS Duration 122 Q-T Interval 422 QTC Calculation(Bazett) 474 P [place] 52 R [place] 71 T [place] 98 QRS Count 13 Q Onset 212 P Onset 102 P Offset 165 T Offset 423 QTC Fredericia 456 Diagnosis Sinus rhythm with 1st degree AV block Cannot rule out Anterior infarct (cited on or before 31-JUL-2023) Abnormal ECG When compared with ECG of 31-JUL-2023 17:31, (unconfirmed) QRS axis Shifted left See ED provider note for full interpretation and clinical correlation Confirmed by Ivy Hahn ([id number]) on 08/09/2023 1:08:32 PM Normal [facility] Glucose Test strip manual (B ld) [Mass/Vol]on 08-03-2023 Glucose [Mass/Vol] 95 mg/dL 74 - 99 mg/dL [facility] Interpretation and review of laboratory results Normal [facility] Glucose [Mass/Vol] 95 mg/dL Normal 74-[address] [facility] Comment on above: Performed By: #### 2 341-6 #### LAILA BOONE ([id number]) [facility] ([facility]) [facility] [place] [address] Glucose [Mass/Vol] 84 mg/dL 74 - 99 mg/dL [facility] Interpretation and review of laboratory results Normal [facility] Glucose [Mass/Vol] 84 mg/dL Normal 74-[address] [facility] Comment on above: Performed By: #### 2 341-6 #### LAILA BOONE ([id number]) [facility] ([facility]) [facility] [place] [address] Natriuretic peptide B [Mass/ Vol]on 08-03-2023 Interpretation and review of laboratory results Abnormal [facility] Natriuretic peptide B (Bld) [Mass/Vol] 281 pg/mL High 0 - 99 pg/mL [facility] <100 pg/mL - Heart failure unlikely 100-299 pg/mL - Intermediate probability of acute heart failure exacerbation. Correlate with clinical context and patient history. >=300 pg/mL - Heart Failure likely. Correlate with clinical context and patient history. BNP testing is performed using different testing methodology at [facility] than at located within [facility]. Direct result comparisons should only be made within the same method. [facility] Natriuretic peptide B (Bld) [Mass/Vol] 281 pg/mL High 0-99 [facility] Comment on above: Order Comment: <100 pg/mL - Heart failure [id number] pg/mL - Intermediate probability of acute heart failure exacerbation. Correlate with clinical context and patient history. >=300 pg/mL - Heart Failure likely. Correlate with clinical context and patient history.BNP testing is performed using different testing methodology at [facility] than at other [facility]. Direct result comparisons should only be made within the same method. Performed By: #### 5 7021-8 #### ULLOA MELY ([id number]) [facility] ([facility]) [address] [place] [address] No Panel Informationon 08-02 Extra Tube Hold for add-ons. [facility] Comment on above: Auto resulted. [facility] Tropinin I.cardiac panel Hig h sensitivity methodon 08-03-2023 Interpretation and review of laboratory results Normal [facility] Less than 99th percentile of normal range cutoff- Female and children under 18 years old <14 ng/L; Male <21 ng/L: Negative Repeat testing should be performed if clinically indicated. Female and children under 18 years old 14-50 ng/L; Male 21-50 ng/L: Consistent with possible cardiac damage and possible increased clinical risk. Serial measurements may help to assess extent of myocardial damage. >50 ng/L: Consistent with cardiac damage, increased clinical risk and myocardial infarction. Serial measurements may help assess extent of myocardial damage. NOTE: Children less than 1 year old may have higher baseline troponin levels and results should be interpreted in conjunction with the overall clinical context. NOTE: Troponin I testing is performed using a different testing methodology at [facility] than at other [facility]. Direct result comparisons should only be made within the same method. [facility] Interpretation and review of laboratory results Normal [facility] Less than 99th percentile of normal range cutoff- Female and children under 18 years old <14 ng/L; Male <21 ng/L: Negative Repeat testing should be performed if clinically indicated. Female and children under 18 years old 14-50 ng/L; Male 21-50 ng/L: Consistent with possible cardiac damage and possible increased clinical risk. Serial measurements may help to assess extent of myocardial damage. >50 ng/L: Consistent with cardiac damage, increased clinical risk and myocardial infarction. Serial measurements may help assess extent of myocardial damage. NOTE: Children less than 1 year old may have higher baseline troponin levels and results should be interpreted in conjunction with the overall clinical context. NOTE: Troponin I testing is performed using a different testing methodology at [facility] than at other [facility]. Direct result comparisons should only be made within the same method. [facility] Troponin I, High Sensitivity , Initialon 08-03-2023 Tropinin I.cardiac panel High sensitivity method 18 ng/L 0 - 20 ng/L [facility] Troponin I.cardiac panelon 0 08-03-2023 Tropinin I.cardiac panel High sensitivity method 19 ng/L Normal 0-20 [facility] Comment on above: Order Comment: Less than 99th percentile of normal range cutoff-Female and children under 18 years old <14 ng/L; Male <21 ng/L: NegativeRepeat testing should be performed if clinically indicated.Female and children under 18 years old 14-50 ng/L; Male 21-50 ng/L:Consistent with possible cardiac damage and possible increased clinicalrisk. Serial measurements may help to assess extent of myocardial damage.>50 ng/L: Consistent with cardiac damage, increased clinical risk andmyocardial infarction. Serial measurements may help assess extent ofmyocardial damage.NOTE: Children less than 1 year old may have higher baseline troponinlevels and results should be interpreted in conjunction with the overallclinical context.NOTE: Troponin I testing is performed using a differenttesting methodology at [facility] than at [facility]. Direct result comparisons should onlybe made within the same method. Performed By: #### 5 7021-8 #### ULLOA MELY ([id number]) [facility] ([facility]) [address] [place] [address] Tropinin I.cardiac panel High sensitivity method 18 ng/L Normal 0-20 [facility] Comment on above: Order Comment: Less than 99th percentile of normal range cutoff-Female and children under 18 years old <14 ng/L; Male <21 ng/L: NegativeRepeat testing should be performed if clinically indicated.Female and children under 18 years old 14-50 ng/L; Male 21-50 ng/L:Consistent with possible cardiac damage and possible increased clinicalrisk. Serial measurements may help to assess extent of myocardial damage.>50 ng/L: Consistent with cardiac damage, increased clinical risk andmyocardial infarction. Serial measurements may help assess extent ofmyocardial damage.NOTE: Children less than 1 year old may have higher baseline troponinlevels and results should be interpreted in conjunction with the overallclinical context.NOTE: Troponin I testing is performed using a differenttesting methodology at [facility] than at [facility]. Direct result comparisons should onlybe made within the same method. Performed By: #### 5 7021-8 #### LAILA BOONE ([id number]) [facility] ([facility]) [address] [place] [address] Troponin, High Sensitivity, 1 Houron 08-03-2023 Tropinin I.cardiac panel High sensitivity method 19 ng/L 0 - 20 ng/L [facility] Urinalysis complete W Reflex Culture panel (U)on 08-03-2023 Appearance (U) Clear Clear [facility] Bilirubin (U) [Mass/Vol] Negative NEGATIVE [facility] Color (U) Yellow Straw, Yellow [facility] Glucose Auto test strip (U) [Mass/Vol] >=500 (3+) Abnormal NEGATIVE mg/dL [facility] Interpretation and review of laboratory results Abnormal [facility] Ketones (U) [Mass/Vol] Negative NEGATIVE mg/dL [facility] Leukocyte esterase Auto test strip Ql (U) Negative NEGATIVE [facility] Mucus Auto (Urine sed) [#/Area] 1+ Reference range not established. /LPF [facility] Nitrite Auto test strip Ql (U) Negative NEGATIVE [facility] pH (U) 7.0 [pH] 5.0, 5.5, 6.0, 6.5, 7.0, 7.5, 8.0 [facility] Protein (U) [Mass/Vol] 30 (1+) Abnormal NEGATIVE mg/dL [facility] RBC (U) [#/Vol] Negative NEGATIVE [facility] RBC Auto (Urine sed) [#/Area] NONE NONE, 1-2, 3-5 /HPF [facility] Specific gravity (U) [Rel density] 1.028 1.005 - 1.035 [facility] Urobilinogen (U) [Mass/Vol] mg/dL NINF - 2.0 mg/dL [facility] WBC Auto (Urine sed) [#/Area] NONE 1-5, NONE /HPF [facility] Appearance (U) Clear Normal Clear [facility] Comment on above: Performed By: #### 5 7021-8 #### LAILA BOONE ([id number]) [facility] ([facility]) [address] [place] [address] Bilirubin (U) [Mass/Vol] Negative Normal NEGATIVE [facility] Comment on above: Performed By: #### 5 7021-8 #### LAILA BOONE ([id number]) [facility] ([facility]) [address] [place] [address] Color (U) Yellow Normal Straw, Yellow [facility] Comment on above: Performed By: #### 5 7021-8 #### LAILA BOONE ([id number]) [facility] ([facility]) [address] [place] [address] Glucose Auto test strip (U) [Mass/Vol] >=500 (3+) Abnormal NEGATIVE [facility] Comment on above: Performed By: #### 5 7021-8 #### LAILA BOONE ([id number]) [facility] ([facility]) [address] [place], [place] [address] Ketones (U) [Mass/Vol] Negative Normal NEGATIVE [facility] Comment on above: Performed By: #### 5 7021-8 #### LAILA BOONE ([id number]) [facility] ([facility]) [address] [place], [place] [address] Leukocyte esterase Auto test strip Ql (U) Negative Normal NEGATIVE [facility] Comment on above: Performed By: #### 5 7021-8 #### LAILA BOONE ([id number]) [facility] ([facility]) [address] [place], [place] [address] Mucus Auto (Urine sed) [#/Area] 1+ /LPF Normal Reference range not established. [facility] Comment on above: Performed By: #### 5 7021-8 #### LAILA BOONE ([id number]) [facility] ([facility]) [address] [place] [address] Nitrite Auto test strip Ql (U) Negative Normal NEGATIVE [facility] Comment on above: Performed By: #### 5 7021-8 #### LAILA BOONE ([id number]) [facility] ([facility]) [address] [place] [address] 44706 pH (U) 7.0 [pH] Normal 5.0, 5.5, 6.0, 6.5, 7.0, 7.5, 8.0 [facility] Comment on above: Performed By: #### 5 7021-8 #### LAILA BOONE ([id number]) [facility] ([facility]) [address] [place] [address] 27682 Protein (U) [Mass/Vol] 30 (1+) Normal NEGATIVE [facility] Comment on above: Performed By: #### 5 7021-8 #### LAILA BOONE ([id number]) [facility] ([facility]) [address] [place] [address] 89189 RBC (U) [#/Vol] Negative Normal NEGATIVE [facility] Comment on above: Performed By: #### 5 7021-8 #### LAILA BOONE ([id number]) [facility] ([facility]) [address] [place] [address] 47405 RBC Auto (Urine sed) [#/Area] NONE Normal NONE, 1-2, 3-5 [facility] Comment on above: Performed By: #### 5 7021-8 #### LAILA BOONE ([id number]) [facility] ([facility]) [address] [place] [address] 80094 Specific gravity (U) [Rel density] 1.028 Normal 1.005-1.035 [facility] Comment on above: Performed By: #### 5 7021-8 #### LAILA BOONE ([id number]) [facility] ([facility]) [address] [place] [address] 82700 Urobilinogen (U) [Mass/Vol] mg/dL Normal <2.0 [facility] Comment on above: Performed By: #### 5 7021-8 #### LAILA BOONE ([id number]) [facility] ([facility]) [address] [place] [address] 53337 WBC Auto (Urine sed) [#/Area] NONE Normal 1-5, NONE [facility] Comment on above: Performed By: #### 5 7021-8 #### ULLOA MELY ([id number]) [facility] ([facility]) [address] [place] [id number] XR CHEST 1 VIEWon 08-03-2023 XR CHEST 1 VIEW STUDY: Chest Radiograph; 08/03/2023 6:57 AM INDICATION: Altered loc. COMPARISON: None Available ACCESSION NUMBER(S): [id number] ORDERING CLINICIAN: MENDEZ ZACARIAS TECHNIQUE: Frontal chest was obtained at 6:57 hours. FINDINGS: CARDIOMEDIASTINAL SILHOUETTE: Cardiomediastinal silhouette is normal in size and configuration. Median sternotomy changes are noted. Left subclavian approach single lead pacemaker is noted LUNGS: Minimal left basilar atelectasis. Blunting of the left costophrenic angle suggests a small left pleural effusion. Right lung is grossly clear. No pneumothorax. ABDOMEN: No remarkable upper abdominal findings. Moche-sl-rpodwrvv hiatal hernia is suggested. BONES: No acute osseous changes. IMPRESSION: Small left pleural effusion is suggested with minimal left basilar atelectasis. No distinct lobar consolidation or overt edema. Signed by Shad Duarte MD [facility] XR Chest Single viewon 08-02 Small left pleural effusion is suggested with minimal left basilar atelectasis. No distinct lobar consolidation or overt edema. Signed by Shad Duarte MD TELERADIOLOGY STUDY: Chest Radiograph; 08/03/2023 6:57 AM INDICATION: Altered loc. COMPARISON: None Available ACCESSION NUMBER(S): [id number] ORDERING CLINICIAN: MENDEZ ZACARIAS TECHNIQUE: Frontal chest was obtained at 6:57 hours. FINDINGS: CARDIOMEDIASTINAL SILHOUETTE: Cardiomediastinal silhouette is normal in size and configuration. Median sternotomy changes are noted. Left subclavian approach single lead pacemaker is noted LUNGS: Minimal left basilar atelectasis. Blunting of the left costophrenic angle suggests a small left pleural effusion. Right lung is grossly clear. No pneumothorax. ABDOMEN: No remarkable upper abdominal findings. Zmljy-vf-qfgcevic hiatal hernia is suggested. BONES: No acute osseous changes. TELERADIOLOGY Shad Duarte MD - 08/03/2023 STUDY: Chest Radiograph; 08/03/2023 6:57 AM INDICATION: Altered loc. COMPARISON: None Available ACCESSION NUMBER(S): [id number] ORDERING CLINICIAN: MENDEZ ZACARIAS TECHNIQUE: Frontal chest was obtained at 6:57 hours. FINDINGS: CARDIOMEDIASTINAL SILHOUETTE: Cardiomediastinal silhouette is normal in size and configuration. Median sternotomy changes are noted. Left subclavian approach single lead pacemaker is noted LUNGS: Minimal left basilar atelectasis. Blunting of the left costophrenic angle suggests a small left pleural effusion. Right lung is grossly clear. No pneumothorax. ABDOMEN: No remarkable upper abdominal findings. Dwjyx-ky-uoxxslcf hiatal hernia is suggested. BONES: No acute osseous changes. IMPRESSION: Small left pleural effusion is suggested with minimal left basilar atelectasis. No distinct lobar consolidation or overt edema. Signed by Shad Duarte MD [facility] Work Phone: Radiology Study observation (narrative) [facility] Work Phone: XR Chest Single viewOrdered By: Shad Duarte on 08-03-2023 [facility] Work Phone: ECG 12-LEADon 07-31-2023 ECG 12-LEAD Ventricular Rate 84 Atrial Rate 84 P-R Interval 208 QRS Duration 118 Q-T Interval 418 QTC Calculation(Bazett) 493 P [place] 71 R [place] 121 T [place] 40 QRS Count 14 Q Onset 211 P Onset 107 P Offset 179 T Offset 420 QTC Fredericia 467 Diagnosis Normal sinus rhythm Right axis deviation Cannot rule out Anterior infarct , age undetermined Abnormal ECG When compared with ECG of 31-JUL-2023 14:33, (unconfirmed) Vent. rate has decreased BY 42 BPM QRS axis Shifted right Minimal criteria for Anterior infarct are now Present ST no longer elevated in Anterior leads See ED provider note for full interpretation and clinical correlation Confirmed by Ivy Hahn ([id number]) on 08/06/2023 9:44:12 PM Normal [facility] Glucose Test strip manual (B ld) [Mass/Vol]on 07-31-2023 Glucose [Mass/Vol] 176 mg/dL High 74 - 99 mg/dL [facility] Interpretation and review of laboratory results Abnormal [facility] Glucose [Mass/Vol] 176 mg/dL High 74-[address] [facility] Comment on above: Performed By: #### 2 341-6 #### LAILA BOONE ([id number]) [facility] ([facility]) [address] [place] [address] 10024 Glucose [Mass/Vol] 103 mg/dL High 74 - 99 mg/dL [facility] Interpretation and review of laboratory results Abnormal [facility] Glucose [Mass/Vol] 103 mg/dL High 74-[address] [facility] Comment on above: Performed By: #### 2 341-6 #### LAILA BOONE ([id number]) [facility] ([facility]) [address] [place] [address] 32644 Glucose [Mass/Vol] 42 mg/dL Low 74 - 99 mg/dL [facility] Interpretation and review of laboratory results Abnormal [facility] Glucose [Mass/Vol] 42 mg/dL Low 74-[address] [facility] Comment on above: Performed By: #### 2 341-6 #### LAILA BOONE ([id number]) [facility] ([facility]) [address] [place], [place] [id number] Urinalysis complete W Reflex Culture panel (U)on 07-31-2023 Appearance (U) Hazy Abnormal Clear [facility] Bilirubin (U) [Mass/Vol] Negative NEGATIVE [facility] Color (U) Yellow Straw, Yellow [facility] Glucose Auto test strip (U) [Mass/Vol] >=500 (3+) Abnormal NEGATIVE mg/dL [facility] Hyaline casts Auto (Urine sed) [#/Area] 2+ Abnormal NONE /LPF [facility] Interpretation and review of laboratory results Abnormal [facility] Ketones (U) [Mass/Vol] Negative NEGATIVE mg/dL [facility] Leukocyte esterase Auto test strip Ql (U) Negative NEGATIVE [facility] Mucus Auto (Urine sed) [#/Area] 1+ Reference range not established. /LPF [facility] Nitrite Auto test strip Ql (U) Negative NEGATIVE [facility] pH (U) 5.0 [pH] 5.0, 5.5, 6.0, 6.5, 7.0, 7.5, 8.0 [facility] Protein (U) [Mass/Vol] 30 (1+) Abnormal NEGATIVE mg/dL [facility] RBC (U) [#/Vol] Negative NEGATIVE [facility] RBC Auto (Urine sed) [#/Area] 1-2 NONE, 1-2, 3-5 /HPF [facility] Specific gravity (U) [Rel density] 1.024 1.005 - 1.035 [facility] Urobilinogen (U) [Mass/Vol] mg/dL NINF - 2.0 mg/dL [facility] WBC Auto (Urine sed) [#/Area] 1-5 1-5, NONE /HPF [facility] Appearance (U) Hazy Normal Clear [facility] Comment on above: Performed By: #### 2 341-6 #### LAILA BOONE ([id number]) [facility] ([facility]) [address] [place] [address] 19037 Bilirubin (U) [Mass/Vol] Negative Normal NEGATIVE [facility] Comment on above: Performed By: #### 2 341-6 #### LAILA BOONE ([id number]) [facility] ([facility]) [address] [place] [address] 58758 Color (U) Yellow Normal Straw, Yellow [facility] Comment on above: Performed By: #### 2 341-6 #### LAILA BOONE ([id number]) [facility] ([facility]) [address] [place] [address] 79758 Glucose Auto test strip (U) [Mass/Vol] >=500 (3+) Abnormal NEGATIVE [facility] Comment on above: Performed By: #### 2 341-6 #### LAILA BOONE ([id number]) [facility] ([facility]) [address] [place] [address] 63861 Hyaline casts Auto (Urine sed) [#/Area] 2+ /LPF Abnormal NONE [facility] Comment on above: Performed By: #### 2 341-6 #### LAILA BOONE ([id number]) [facility] ([facility]) [address] [place] [address] 73839 Ketones (U) [Mass/Vol] Negative Normal NEGATIVE [facility] Comment on above: Performed By: #### 2 341-6 #### LAILA BOONE ([id number]) [facility] ([facility]) [address] [place] [address] 11857 Leukocyte esterase Auto test strip Ql (U) Negative Normal NEGATIVE [facility] Comment on above: Performed By: #### 2 341-6 #### LAILA BOONE ([id number]) [facility] ([facility]) [address] [place] [address] 68773 Mucus Auto (Urine sed) [#/Area] 1+ /LPF Normal Reference range not established. [facility] Comment on above: Performed By: #### 2 341-6 #### LAILA BOONE ([id number]) [facility] ([facility]) [address] [place] [address] 79616 Nitrite Auto test strip Ql (U) Negative Normal NEGATIVE [facility] Comment on above: Performed By: #### 2 341-6 #### LAILA BOONE ([id number]) [facility] ([facility]) [address] [place] [address] 87132 pH (U) 5.0 [pH] Normal 5.0, 5.5, 6.0, 6.5, 7.0, 7.5, 8.0 [facility] Comment on above: Performed By: #### 2 341-6 #### LAILA BOONE ([id number]) [facility] ([facility]) [address] [place] [address] 62834 Protein (U) [Mass/Vol] 30 (1+) Normal NEGATIVE [facility] Comment on above: Performed By: #### 2 341-6 #### LAILA BOONE ([id number]) [facility] ([facility]) [address] [place] [address] 70931 RBC (U) [#/Vol] Negative Normal NEGATIVE [facility] Comment on above: Performed By: #### 2 341-6 #### LAILA BOONE ([id number]) [facility] ([facility]) [address] [place] [address] 73170 RBC Auto (Urine sed) [#/Area] 1-2 Normal NONE, 1-2, 3-5 [facility] Comment on above: Performed By: #### 2 341-6 #### LAILA BOONE ([id number]) [facility] ([facility]) [address] [place] [address] 16525 Specific gravity (U) [Rel density] 1.024 Normal 1.005-1.035 [facility] Comment on above: Performed By: #### 2 341-6 #### LAILA BOONE ([id number]) [facility] ([facility]) [address] [place] [address] 63011 Urobilinogen (U) [Mass/Vol] mg/dL Normal <2.0 [facility] Comment on above: Performed By: #### 2 341-6 #### LAILA BOONE ([id number]) [facility] ([facility]) [address] [place] [address] 91663 WBC Auto (Urine sed) [#/Area] 1-5 Normal 1-5, NONE [facility] Comment on above: Performed By: #### 2 341-6 #### LAILA BOONE ([id number]) [facility] ([facility]) [address] [place] [address] 53085 Glucose Test strip manual (B ld) [Mass/Vol]on 07-03-2023 Glucose [Mass/Vol] 133 mg/dL High 74 - 99 mg/dL [facility] Interpretation and review of laboratory results Abnormal [facility] Glucose [Mass/Vol] 133 mg/dL High 74-[address] [facility] Comment on above: Performed By: #### 2 341-6 #### LAILA BOONE ([id number]) [facility] ([facility]) [address] [place] [address] 84060 Glucose [Mass/Vol] 98 mg/dL 74 - 99 mg/dL [facility] Interpretation and review of laboratory results Normal [facility] Glucose [Mass/Vol] 98 mg/dL Normal 74-[address] [facility] Comment on above: Performed By: #### 2 341-6 #### LAILA BOONE ([id number]) [facility] ([facility]) [address] [place] [address] 52543 Glucose [Mass/Vol] 113 mg/dL High 74 - 99 mg/dL [facility] Interpretation and review of laboratory results Abnormal [facility] Glucose [Mass/Vol] 113 mg/dL High 74-[address] [facility] Comment on above: Performed By: #### 2 341-6 #### LAILA BOONE ([id number]) [facility] ([facility]) [address] [place] [address] 16276 Glucose Test strip manual (B ld) [Mass/Vol]on 06-26-2023 Glucose [Mass/Vol] 247 mg/dL High 74 - 99 mg/dL [facility] Interpretation and review of laboratory results Abnormal [facility] Glucose [Mass/Vol] 247 mg/dL High 74-[address] [facility] Comment on above: Performed By: #### 2 341-6 #### LAILA BOONE ([id number]) [facility] ([facility]) [address] [place] [address] 48767 Glucose [Mass/Vol] 269 mg/dL High 74 - 99 mg/dL [facility] Comment on above: RN/ NOTIFIED Interpretation and review of laboratory results Abnormal [facility] Glucose [Mass/Vol] 269 mg/dL High 74-[address] [facility] Comment on above: Result Comment: APOLINAR Gilbert NOTIFIED Performed By: #### 2 341-6 #### LAILA BOONE ([id number]) [facility] ([facility]) [address] [place] [address] 43671 Glucose [Mass/Vol] 189 mg/dL High 74 - 99 mg/dL [facility] Comment on above: RN/ NOTIFIED Interpretation and review of laboratory results Abnormal [facility] Glucose [Mass/Vol] 189 mg/dL High 74-[address] [facility] Comment on above: Result Comment: APOLINAR Gilbert NOTIFIED Performed By: #### 2 341-6 #### ULLOA MELY ([id number]) [facility] ([facility]) [address] [place] [address] Basic metabolic 2000 panelon 04-02-2023 Anion gap [Moles/Vol] 10 mmol/L 10 - 20 mmol/L [facility] Calcium [Mass/Vol] 8.8 mg/dL 8.6 - 10. 3 mg/dL [facility] Chloride [Moles/Vol] 105 mmol/L 98 - 107 mmol/L [facility] CO2 [Moles/Vol] 28 mmol/L 21 - 32 mmol/L [facility] Creatinine [Mass/Vol] 1.11 mg/dL 0.50 - 1.30 mg/dL [facility] GFR/1.73 sq M.predicted among non-blacks MDRD (S/P/Bld) [Vol rate/Area] 71 mL/min/{1.73_m2} - PINF [facility] Comment on above: Calculations of debbie mated GFR are performed using the 2020 CKD-EPI Study Refit equation without the race variable for the IDMS-Traceable creatinine methods. https://jasn.asnjournals.org/content//ASN.67197251 88 Glucose [Mass/Vol] 191 mg/dL High 74 - 99 mg/dL [facility] Interpretation and review of laboratory results Abnormal [facility] Potassium [Moles/Vol] 3.7 mmol/L 3.5 - 5.3 mmol/L [facility] Comment on above: MILD HEMOLYSIS DETEC NOLAN. The result may be falsely elevated due to hemolysis or other interferents. Clinical correlation is recommended. Repeat testing may be considered. Sodium [Moles/Vol] 139 mmol/L 136 - 145 mmol/L [facility] Urea nitrogen [Mass/Vol] 20 mg/dL 6 - 23 mg/dL [facility] Anion gap [Moles/Vol] 10 mmol/L Normal 10-20 [facility] Comment on above: Performed By: #### 2 4321-2 #### LAILA BOONE ([id number]) [facility] ([facility]) [address] [place] [address] Calcium [Mass/Vol] 8.8 mg/dL Normal 8.6-10.[address] [facility] Comment on above: Performed By: #### 2 4321-2 #### LAILA BOONE ([id number]) [facility] ([facility]) [address] [place] [address] Chloride [Moles/Vol] 105 mmol/L Normal 98-107 [facility] Comment on above: Performed By: #### 2 4321-2 #### LAILA BOONE ([id number]) [facility] ([facility]) [address] [place] [address] 61461 CO2 [Moles/Vol] 28 mmol/L Normal 21-32 [facility] Comment on above: Performed By: #### 2 4321-2 #### LAILA BOONE ([id number]) [facility] ([facility]) [address] [place] [address] 16969 Creatinine [Mass/Vol] 1.11 mg/dL Normal 0.50-1.30 [facility] Comment on above: Performed By: #### 2 4321-2 #### LAILA BOONE ([id number]) [facility] ([facility]) [address] [place] [address] 19068 Glomerular filtration rate/1.73 sq M.predicted 71 mL/min/1.73m*2 Normal >60 [facility] Comment on above: Result Comment: Calc ulations of estimated GFR are performed using the 2020 CKD-EPI Study Refit equation without the race variable for the IDMS-Traceable creatinine methods. https://jasn.asnjournals.org/content//ASN.71277151 88 Performed By: #### 2 4321-2 #### LAILA BOONE ([id number]) [facility] ([facility]) [address] [place] [address] 27582 Glucose [Mass/Vol] 191 mg/dL High 74-[address] [facility] Comment on above: Performed By: #### 2 4321-2 #### LAILA BOONE ([id number]) [facility] ([facility]) [address] [place] [address] 69063 Potassium [Moles/Vol] 3.7 mmol/L Normal 3.5-5.3 [facility] Comment on above: Result Comment: MILD HEMOLYSIS DETECTED. The result may be falsely elevated due to hemolysis or other interferents. Clinical correlation is recommended. Repeat testing may be considered. Performed By: #### 2 4321-2 #### LAILA BOONE ([id number]) [facility] ([facility]) [address] [place] [address] 78950 Sodium [Moles/Vol] 139 mmol/L Normal 136-[address] [facility] Comment on above: Performed By: #### 2 4321-2 #### LAILA BOONE ([id number]) [facility] ([facility]) [address] [place] [address] 48848 Urea nitrogen [Mass/Vol] 20 mg/dL Normal 6-23 [facility] Comment on above: Performed By: #### 2 4321-2 #### LAILA BOONE ([id number]) [facility] ([facility]) [address] [place] [address] 82610 CBC W Auto Differential pane l (Bld)on 04-02-2023 Basophils (Bld) [#/Vol] 0.03 10*3/uL [facility] Basophils/100 WBC (Bld) 0.5 % 0.0 - 2.0 % [facility] Eosinophils (Bld) [#/Vol] 0.09 10*3/uL [facility] Eosinophils/100 WBC (Bld) 1.5 % 0.0 - 6.0 % [facility] Erythrocyte distribution width (RBC) [Ratio] 13.3 % 11.5 - 14.5 % [facility] Hematocrit (Bld) [Volume fraction] 43.7 % 41.0 - 52.0 % [facility] Hemoglobin (Bld) [Mass/Vol] 14.2 g/dL 13.5 - 17.5 g/dL [facility] Immature granulocytes (Bld) [#/Vol] 0.02 10*3/uL [facility] Immature granulocytes/100 WBC (Bld) 0.3 % 0.0 - 0.9 % [facility] Comment on above: Immature Granulocyte Count (IG) includes promyelocytes, myelocytes and metamyelocytes but does not include bands. Percent differential counts (%) should be interpreted in the context of the absolute cell counts (cells/UL). Lymphocytes (Bld) [#/Vol] 1.22 10*3/uL [facility] Lymphocytes/100 WBC (Bld) 20.2 % 13.0 - 44.0 % [facility] MCH (RBC) [Entitic mass] 29.5 pg 26.0 - 34.0 pg [facility] MCHC (RBC) [Mass/Vol] 32.5 g/dL 32.0 - 36.0 g/dL [facility] MCV (RBC) [Entitic vol] 91 fL 80 - 100 fL [facility] Monocytes (Bld) [#/Vol] 0.70 10*3/uL [facility] Monocytes/100 WBC (Bld) 11.6 % 2.0 - 10.0 % [facility] Neutrophils (Bld) [#/Vol] 3.97 10*3/uL [facility] Comment on above: Percent differential counts (%) should be interpreted in the context of the absolute cell counts (cells/uL). Neutrophils/100 WBC (Bld) 65.9 % 40.0 - 80.0 % [facility] Nucleated RBC/100 WBC (Bld) [Ratio] 0.0 % [facility] Platelets (Bld) [#/Vol] 224 10*3/uL [facility] RBC (Bld) [#/Vol] 4.81 10*6/uL [facility] WBC (Bld) [#/Vol] 6.0 10*3/uL [facility] Basophils (Bld) [#/Vol] 0.03 x10*3/uL Normal 0.00-0.10 [facility] Comment on above: Performed By: #### 5 7021-8 #### LAILA BOONE ([id number]) [facility] ([facility]) [address] [place] [address] 20614 Basophils/100 WBC (Bld) 0.5 % Normal 0.0-2.0 [facility] Comment on above: Performed By: #### 7021-8 #### LAILA BOONE ([id number]) [facility] ([facility]) [address] [place] [address] 01561 Eosinophils (Bld) [#/Vol] 0.09 x10*3/uL Normal 0.00-0.40 [facility] Comment on above: Performed By: #### 7021-8 #### LAILA BOONE ([id number]) [facility] ([facility]) [address] [place] [address] 41318 Eosinophils/100 WBC (Bld) 1.5 % Normal 0.0-6.0 [facility] Comment on above: Performed By: #### 7021-8 #### LAILA BOONE ([id number]) [facility] ([facility]) [address] [place] [address] 19421 Erythrocyte distribution width (RBC) [Ratio] 13.3 % Normal 11.5-14.5 [facility] Comment on above: Performed By: #### 5 7021-8 #### LAILA BOONE ([id number]) [facility] ([facility]) [address] [place] [address] 71794 Hematocrit (Bld) [Volume fraction] 43.7 % Normal 41.0-52.0 [facility] Comment on above: Performed By: #### 7021-8 #### LAILA BOONE ([id number]) [facility] ([facility]) [address] [place] [address] 13604 Hemoglobin (Bld) [Mass/Vol] 14.2 g/dL Normal 13.5-17.5 [facility] Comment on above: Performed By: #### 7021-8 #### LAILA BOONE ([id number]) [facility] ([facility]) [address] [place] [address] 79859 Immature granulocytes (Bld) [#/Vol] 0.02 x10*3/uL Normal 0.00-0.50 [facility] Comment on above: Performed By: #### 5 7021-8 #### LAILA BOONE ([id number]) [facility] ([facility]) [address] [place] [address] 84439 Immature granulocytes/100 WBC (Bld) 0.3 % Normal 0.0-0.9 [facility] Comment on above: Result Comment: Sanjuanita ture Granulocyte Count (IG) includes promyelocytes, myelocytes and metamyelocytes but does not include bands. Percent differential counts (%) should be interpreted in the context of the absolute cell counts (cells/UL). Performed By: #### 5 7021-8 #### LAILA BOONE ([id number]) [facility] ([facility]) [address] [place] [address] 78615 Lymphocytes (Bld) [#/Vol] 1.22 x10*3/uL Normal 0.80-3.00 [facility] Comment on above: Performed By: #### 5 7021-8 #### LAILA BOONE (60406) [facility] ([facility]) [address] [place] [address] 78926 Lymphocytes/100 WBC (Bld) 20.2 % Normal 13.0-44.0 [facility] Comment on above: Performed By: #### 5 7021-8 #### LAILA BOONE (72999) [facility] ([facility]) [address] [place] [address] 86375 MCH (RBC) [Entitic mass] 29.5 pg Normal 26.0-34.0 [facility] Comment on above: Performed By: #### 5 7021-8 #### LAILA BOONE ([id number]) [facility] ([facility]) [address] [place] [address] 58623 MCHC (RBC) [Mass/Vol] 32.5 g/dL Normal 32.0-36.0 [facility] Comment on above: Performed By: #### 5 7021-8 #### LAILA BOONE ([id number]) [facility] ([facility]) [address] [place] [address] 74487 MCV (RBC) [Entitic vol] 91 fL Normal 80-100 [facility] Comment on above: Performed By: #### 5 7021-8 #### LAILA BOONE ([id number]) [facility] ([facility]) [address] [place] [address] 82364 Monocytes (Bld) [#/Vol] 0.70 x10*3/uL Normal 0.05-0.80 [facility] Comment on above: Performed By: #### 5 7021-8 #### LAILA BOONE ([id number]) [facility] ([facility]) [address] [place] [address] 58172 Monocytes/100 WBC (Bld) 11.6 % Normal 2.0-10.0 [facility] Comment on above: Performed By: #### 5 7021-8 #### LAILA BOONE ([id number]) [facility] ([facility]) [address] [place] [address] 90359 Neutrophils (Bld) [#/Vol] 3.97 x10*3/uL Normal 1.60-5.50 [facility] Comment on above: Result Comment: Perc ent differential counts (%) should be interpreted in the context of the absolute cell counts (cells/uL). Performed By: #### 5 7021-8 #### LAILA BOONE ([id number]) [facility] ([facility]) [address] [place] [address] 52450 Neutrophils/100 WBC (Bld) 65.9 % Normal 40.0-80.0 [facility] Comment on above: Performed By: #### 5 7021-8 #### LAILA BOONE ([id number]) [facility] ([facility]) [address] [place] [address] 49935 Nucleated RBC/100 WBC (Bld) [Ratio] 0.0 /100 WBCs Normal 0.0-0.0 [facility] Comment on above: Performed By: #### 5 7021-8 #### LAILA BOONE ([id number]) [facility] ([facility]) [address] [place] [address] 14553 Platelets (Bld) [#/Vol] 224 x10*3/uL Normal 150-450 [facility] Comment on above: Performed By: #### 5 7021-8 #### LAILA BOONE ([id number]) [facility] ([facility]) [address] [place] [address] RBC (Bld) [#/Vol] 4.81 x10*6/uL Normal 4.50-5.90 [facility] Comment on above: Performed By: #### 5 7021-8 #### LAILA BOONE ([id number]) [facility] ([facility]) [address] [place] [address] WBC (Bld) [#/Vol] 6.0 x10*3/uL Normal 4.4-11.3 [facility] Comment on above: Performed By: #### 5 7021-8 #### LAILA BOONE ([id number]) [facility] ([facility]) [address] [place] [address] Glucose Test strip manual (B ld) [Mass/Vol]on 04-02-2023 Glucose [Mass/Vol] 192 mg/dL High 74 - 99 mg/dL [facility] Interpretation and review of laboratory results Abnormal [facility] Glucose [Mass/Vol] 192 mg/dL High 74-[address] [facility] Comment on above: Performed By: #### 2 341-6 #### LAILA BOONE ([id number]) [facility] ([facility]) [address] [place] [address] Glucose [Mass/Vol] 41 mg/dL Low 74 - 99 mg/dL [facility] Interpretation and review of laboratory results Abnormal [facility] Glucose [Mass/Vol] 41 mg/dL Low 74-[address] [facility] Comment on above: Performed By: #### 2 341-6 #### LAILA BOONE ([id number]) [facility] ([facility]) [address] [place] [address] Urinalysis complete W Reflex Culture panel (U)on 04-02-2023 Appearance (U) Clear Clear [facility] Bilirubin (U) [Mass/Vol] Negative NEGATIVE [facility] Color (U) Yellow Straw, Yellow [facility] Glucose Auto test strip (U) [Mass/Vol] >=500 (3+) Abnormal NEGATIVE mg/dL [facility] Interpretation and review of laboratory results Abnormal [facility] Ketones (U) [Mass/Vol] Negative NEGATIVE mg/dL [facility] Leukocyte esterase Auto test strip Ql (U) Negative NEGATIVE [facility] Nitrite Auto test strip Ql (U) Negative NEGATIVE [facility] pH (U) 6.0 [pH] 5.0, 5.5, 6.0, 6.5, 7.0, 7.5, 8.0 [facility] Protein (U) [Mass/Vol] Negative NEGATIVE mg/dL [facility] RBC (U) [#/Vol] Negative NEGATIVE [facility] Specific gravity (U) [Rel density] 1.017 1.005 - 1.035 [facility] Urobilinogen (U) [Mass/Vol] mg/dL NINF - 2.0 mg/dL [facility] Appearance (U) Clear Normal Clear [facility] Comment on above: Performed By: #### 5 8077-9 #### LAILA BOONE ([id number]) [facility] ([facility]) [address] [place] [address] Bilirubin (U) [Mass/Vol] Negative Normal NEGATIVE [facility] Comment on above: Performed By: #### 5 8077-9 #### LAILA BOONE ([id number]) [facility] ([facility]) [address] [place] [address] Color (U) Yellow Normal Straw, Yellow [facility] Comment on above: Performed By: #### 5 8077-9 #### LAILA BOONE ([id number]) [facility] ([facility]) [address] [place] [address] 05575 Glucose Auto test strip (U) [Mass/Vol] >=500 (3+) Abnormal NEGATIVE [facility] Comment on above: Performed By: #### 5 8077-9 #### LAILA BOONE ([id number]) [facility] ([facility]) [address] [place] [address] 71380 Ketones (U) [Mass/Vol] Negative Normal NEGATIVE [facility] Comment on above: Performed By: #### 5 8077-9 #### LAILA BOONE ([id number]) [facility] ([facility]) [address] [place] [address] 86568 Leukocyte esterase Auto test strip Ql (U) Negative Normal NEGATIVE [facility] Comment on above: Performed By: #### 5 8077-9 #### LAILA BOONE ([id number]) [facility] ([facility]) [address] [place] [address] Nitrite Auto test strip Ql (U) Negative Normal NEGATIVE [facility] Comment on above: Performed By: #### 5 8077-9 #### LAILA BOONE ([id number]) [facility] ([facility]) [address] [place] [address] 75437 pH (U) 6.0 [pH] Normal 5.0, 5.5, 6.0, 6.5, 7.0, 7.5, 8.0 [facility] Comment on above: Performed By: #### 5 8077-9 #### LAILA BOONE ([id number]) [facility] ([facility]) [address] [place] [address] 23179 Protein (U) [Mass/Vol] Negative Normal NEGATIVE [facility] Comment on above: Performed By: #### 5 8077-9 #### LAILA BOONE ([id number]) [facility] ([facility]) [address] [place] [address] 42967 RBC (U) [#/Vol] Negative Normal NEGATIVE [facility] Comment on above: Performed By: #### 5 8077-9 #### LAILA BOONE ([id number]) [facility] ([facility]) [address] [place] [address] Specific gravity (U) [Rel density] 1.017 Normal 1.005-1.035 [facility] Comment on above: Performed By: #### 5 8077-9 #### LAILA BOONE ([id number]) [facility] ([facility]) [address] [place] [address] Urobilinogen (U) [Mass/Vol] mg/dL Normal <2.0 [facility] Comment on above: Performed By: #### 5 8077-9 #### LAILA BOONE ([id number]) [facility] ([facility]) [address] [place] [address] ALCOHOLon 04-22-2021 Ethanol [Mass/Vol] mg/dL Normal [facility] Comment on above: Result Comment: FOR MEDICAL USE ONLY. . REF VALUES <10 Performed By: #### A LC #### [place] [address] CBC AND DIFFERENTIALon 04-22 DIFFERENTIAL SEE MANUAL DIFF Normal [facility] Comment on above: Performed By: #### C BCDF #### [place] [address] Erythrocyte distribution width (RBC) [Ratio] 13.9 % Normal 11.5 - 14.5 [facility] Comment on above: Performed By: #### C BCDF #### [place] [id number] Hematocrit (Bld) [Volume fraction] 47.8 % Normal 41.0 - 52.0 [facility] Comment on above: Performed By: #### C BCDF #### [address] [address] Hemoglobin (Bld) [Mass/Vol] 15.7 g/dL Normal 13.5 - 17.5 [facility] Comment on above: Performed By: #### C BCDF #### [place] [id number] MCHC (RBC) [Mass/Vol] 32.8 g/dL Normal 32.0 - 36.0 [facility] Comment on above: Performed By: #### C BCDF #### [address] [address] MCV (RBC) [Entitic vol] 88 fL Normal 80 - 100 [facility] Comment on above: Performed By: #### C BCDF #### [address] [address] NUCLEATED RBC 0.1 /100 WBC Normal [facility] Comment on above: Performed By: #### C BCDF #### [address] [address] Platelets (Bld) [#/Vol] 311 10*3/uL Normal 150 - 450 [facility] Comment on above: Performed By: #### C BCDF #### [address] [address] RBC 5.45 x10E12/L Normal 4.50 - 5.90 [facility] Comment on above: Performed By: #### C BCDF #### [address] [address] WBC (Bld) [#/Vol] 14.3 10*3/uL High 4.4 - 11.3 [facility] Comment on above: Performed By: #### C BCDF #### [address] [address] CHEST 1 VIEWon 04-22-2021 CHEST 1 VIEW Patient Name: HEAVENLY PRATHER STUDY: CHEST 1 VIEW; 04/22/2021 1:55 am INDICATION: ams . COMPARISON: None. ACCESSION NUMBER(S): [id number] ORDERING CLINICIAN: STEPHEN CARIAS FINDINGS: Midline sternotomy wires and mediastinal clips noted. Left-sided single lead AICD is present with leads overlying the right ventricle. CARDIOMEDIASTINAL SILHOUETTE: Cardiac silhouette is enlarged. Mild pulmonary vascular congestion. LUNGS: Subtle increased opacification of the right upper lobe likely relates to asymmetric edema. No consolidation, sizeable effusion or pneumothorax. Note is made of low lung volumes with bronchovascular crowding. ABDOMEN: No remarkable upper abdominal findings. BONES: No acute osseous abnormality. IMPRESSION: Cardiomegaly with mild pulmonary vascular congestion. Electronically signed by: ROSANNE EASTON MD Normal [facility] COMPREHENSIVE PANELon 2021 Glucose [Mass/Vol] 30 mg/dL Critically low 74 - [address] [facility] Comment on above: Order Comment: Tinoco d- RB to Destiny in ERM, 04/22/2021 02:27 Result Comment: repe ated and verified Called- RB to Destiny in ERM, 04/22/2021 02:27 Performed By: #### C MP #### [place] [address] Albumin [Mass/Vol] 4.4 g/dL Normal 3.4 - 5.0 [facility] Comment on above: Order Comment: [place] d- RB to Destiny in ERM, 04/22/2021 02:27 Performed By: #### C MP #### [place] [address] ALP [Catalytic activity/Vol] 100 U/L Normal 33 - 136 [facility] Comment on above: Order Comment: [place] d- RB to Destiny in ERM, 04/22/2021 02:27 Performed By: #### C MP #### [place] [address] ALT [Catalytic activity/Vol] 22 U/L Normal 10 - 52 [facility] Comment on above: Order Comment: [place] d- RB to Destiny in ERM, 04/22/2021 02:27 Result Comment: Sheri ents treated with Sulfasalazine may generate falsely decreased results for ALT. Performed By: #### C MP #### [place] [id number] Anion gap [Moles/Vol] 12 mmol/L Normal 10 - 20 [facility] Comment on above: Order Comment: [place] d- RB to Destiny in ERM, 04/22/2021 02:27 Performed By: #### C MP #### [place] [id number] AST [Catalytic activity/Vol] 22 U/L Normal 9 - 39 [facility] Comment on above: Order Comment: [place] d- RB to Destiny in ERM, 04/22/2021 02:27 Performed By: #### C MP #### [address] [address] Bilirubin [Mass/Vol] 0.7 mg/dL Normal 0.0 - 1.2 [facility] Comment on above: Order Comment: [place] d- RB to Destiny in [facility], 04/22/2021 02:27 Performed By: #### C MP #### [address] [address] Calcium [Mass/Vol] 10.0 mg/dL Normal 8.6 - 10.3 [facility] Comment on above: Order Comment: [place] d- RB to Destiny in [facility], 04/22/2021 02:27 Performed By: #### C MP #### [address] [address] Chloride [Moles/Vol] 107 mmol/L Normal 98 - 107 [facility] Comment on above: Order Comment: [place] d- RB to Destiny in [facility], 04/22/2021 02:27 Performed By: #### C MP #### [address] [address] Creatinine [Mass/Vol] 1.21 mg/dL Normal 0.50 - 1.30 [facility] Comment on above: Order Comment: [place] d- RB to Destiny in [facility], 04/22/2021 02:27 Performed By: #### C MP #### [address] [address] GFR/1.73 sq M.predicted among non-blacks MDRD (S/P/Bld) [Vol rate/Area] 64 mL/min/{1.73_m2} Normal >90 [facility] Comment on above: Order Comment: [place] d- RB to Destiny in [facility], 04/22/2021 02:27 Result Comment: CALC ULATIONS OF ESTIMATED GFR ARE PERFORMED USING THE 2020 CKD-EPI STUDY REFIT EQUATION WITHOUT THE RACE VARIABLE FOR THE IDMS-TRACEABLE CREATININE METHODS. https://jasn.asnjournals.org/content//ASN.94083019 88 Performed By: #### C MP #### [address] [address] HCO3 (Bld) [Moles/Vol] 27 mmol/L Normal 21 - 32 [facility] Comment on above: Order Comment: [place] d- RB to Destiny in ERM, 04/22/2021 02:27 Performed By: #### C MP #### [address] [address] Potassium [Moles/Vol] 3.2 mmol/L Low 3.5 - 5.3 [facility] Comment on above: Order Comment: [place] d- RB to Destiny in ERM, 04/22/2021 02:27 Performed By: #### C MP #### [place] [id number] Protein [Mass/Vol] 7.5 g/dL Normal 6.4 - 8.2 [facility] Comment on above: Order Comment: [place] d- RB to Destiny in ERM, 04/22/2021 02:27 Performed By: #### C MP #### [place] [id number] Sodium [Moles/Vol] 143 mmol/L Normal 136 - 145 [facility] Comment on above: Order Comment: [place] d- RB to Destiny in ERM, 04/22/2021 02:27 Performed By: #### C MP #### [address] [address] Urea nitrogen [Mass/Vol] 22 mg/dL Normal 6 - 23 [facility] Comment on above: Order Comment: [place] d- RB to Destiny in ERM, 04/22/2021 02:27 Performed By: #### C MP #### [address] [address] CT C-SPINE WO CONTRASTon CT C-SPINE WO CONTRAST Patient Name: HEAVENLY PRATHER STUDY: CT C-SPINE WO CONTRAST; 04/22/2021 1:40 am INDICATION: altered mental status . COMPARISON: None. ACCESSION NUMBER(S): [id number] ORDERING CLINICIAN: STEPHEN CARIAS TECHNIQUE: Axial noncontrast images of the cervical spine with coronal and sagittal reconstructed images. FINDINGS: ALIGNMENT: Normal. VERTEBRAE: No acute fracture. There is loss of intervertebral disc height and anterior osteophyte formation at C6-7 and C7-T1. Facet and uncovertebral hypertrophic changes cause varying degrees of bilateral neural foraminal narrowing, worse at C6-7. Advanced degenerative changes at the atlantodental interval. SPINAL CANAL: No critical spinal canal stenosis.Disc spur complex at C6-7 causes mild canal narrowing. PREVERTEBRAL SOFT TISSUES: No prevertebral soft tissue swelling. LUNG APICES: There is patchy ground-glass opacities in the right upper lobe with mild interlobular septal thickening. These findings may relate to developing edema versus infection. 8 mm nodule is noted in the right upper lobe on axial image 107 of 111 with central calcifications likely relate to calcified granuloma. OTHER FINDINGS: Atherosclerotic calcification of the arch vessels and carotid bifurcations. Midline sternotomy wires noted. Partial visualization of single lead AICD/pacer. IMPRESSION: No acute fracture or traumatic subluxation of the cervical spine. Multilevel discogenic degenerative changes as described above. Mild interlobular septal thickening with patchy ground-glass opacities in the right upper lobe. Findings concerning for developing interstitial edema versus infection. Correlate clinically. Electronically signed by: ROSANNE EASTON MD [facility] CT HEAD WO CONTRASTon 2021 CT HEAD WO CONTRAST Patient Name: HEAVENLY PRATHER STUDY: CT HEAD WO CONTRAST; 04/22/2021 1:40 am INDICATION: altered mental status . COMPARISON: None. ACCESSION NUMBER(S): [id number] ORDERING CLINICIAN: STEPHEN CARIAS TECHNIQUE: Axial noncontrast CT images of the head. FINDINGS: BRAIN PARENCHYMA: [place]-white matter interfaces are preserved. No mass, mass effect or midline shift. Mild deep and periventricular white matter hypodensities are nonspecific, but favored to represent chronic small vessel ischemic changes. Calcifications bilateral basal ganglia are likely physiologic. HEMORRHAGE: No acute intracranial hemorrhage. VENTRICLES and EXTRA-AXIAL SPACES: Gkoq-at-bqbfewur volume loss with prominence of ventricles and sulci. EXTRACRANIAL SOFT TISSUES: Mild soft tissue swelling left occipital scalp. PARANASAL SINUSES/MASTOIDS: The visualized paranasal sinuses and mastoid air cells are aerated. CALVARIUM: No depressed skull fracture. No destructive osseous lesion. OTHER FINDINGS: Atherosclerotic calcification of the carotid siphons and vertebral arteries. IMPRESSION: No acute intracranial abnormality. Chronic changes as described above. Electronically signed by: ROSANNE EASTON MD Normal [facility] GLUCOSE-POCTon 04-22-2021 Glucose [Mass/Vol] 123 mg/dL High 74 - 99 [facility] Comment on above: Performed By: #### G BEBE #### [address] [address] Glucose [Mass/Vol] 138 mg/dL High 74 - 99 [facility] Comment on above: Performed By: #### G BEBE ####[address] [address] Glucose [Mass/Vol] mg/dL Low 74 - 99 [facility] Comment on above: Performed By: #### G BEBE #### [address] [address] MANUAL DIFFERENTIALon 2021 % BAND NEUTROPHIL 1.0 % Normal 0.0 - 5.0 [facility] Comment on above: Performed By: #### M DIFF #### [address] [address] % BASOPHIL 0.0 % Normal 0.0 - 2.0 [facility] Comment on above: Performed By: #### M DIFF #### [address] [address] % EOSINOPHIL 0.0 % Normal 0.0 - 6.0 [facility] Comment on above: Performed By: #### M DIFF #### [address] [address] % LYMPHOCYTE 14.0 % Normal 13.0 - 44.0 [facility] Comment on above: Performed By: #### M DIFF #### [address] [address] % MONOCYTE 2.0 % Normal 2.0 - 10.0 [facility] Comment on above: Performed By: #### M DIFF #### [address] [address] % SEG NEUTROPHIL 83.0 % Normal 40.0 - 80.0 [facility] Comment on above: Result Comment: Perc ent differential counts (%) should be interpreted in the context of the absolute cell counts (cells/L). Performed By: #### M DIFF #### [place] [address] ANC 12.01 x10E9/L High 1.20 - 7.70 [facility] Comment on above: Performed By: #### M DIFF #### [place] [address] BAND NEUTROPHIL 0.14 x10E9/L Normal 0.00 - 0.70 [facility] Comment on above: Performed By: #### M DIFF #### [place] [address] BASOPHIL 0.00 x10E9/L Normal 0.00 - 0.10 [facility] Comment on above: Performed By: #### M DIFF #### [place] [address] EOSINOPHIL 0.00 x10E9/L Normal 0.00 - 0.70 [facility] Comment on above: Performed By: #### M DIFF #### [place] [address] LYMPHOCYTE 2.00 x10E9/L Normal 1.20 - 4.80 [facility] Comment on above: Performed By: #### M DIFF #### [place] [address] MONOCYTE 0.29 x10E9/L Normal 0.10 - 1.00 [facility] Comment on above: Performed By: #### M DIFF #### [place] [address] SEG NEUTROPHIL 11.87 x10E9/L High 1.20 - 7.00 [facility] Comment on above: Performed By: #### M DIFF #### [place] [address] Provider Note - ED v3on Provider Note - ED v3 Provider Note: Chart Review: ED NOTES ED NOTES: History of Present Illness: 70-year-old male brought in for altered mental status. Brought in by EMS. Per patient and her watching television approximately 3-3.5 hours ago when she went to bed. She noticed did not come back to bed and went to check on him and found him to be confused and minimally responsive. States that this happened the past when his sugars been low. Per EMS glucose of approximately 120. Patient cannot provide accurate history of present illness at this time. Past Medical History: Diabetes Past surgical History: Unknown Family history: Reviewed and not pertinent to complaint Social history: denies any drug or alcohol abuse. REVIEW OF SYSTEMS: Pertinent negatives and positives noted in the HPI. Otherwise, a complete review of system was negative. PHYSICAL EXAM: Appearance: Moaning. Skin: Intact, dry skin, no lesions, rash, petechiae or purpura. Eyes: PERRLA. Conjunctiva pink with no redness or exudates. HENT: Normocephalic, atraumatic. Nares patent. No intraoral lesions. Neck: Supple, without meningismus. Trachea at midline. No lymphadenopathy. Pulmonary: Clear bilaterally with good chest wall excursion. No rales, rhonchi or wheezing. No accessory muscle use or stridor. Cardiac: Regular rate and rhythm, no rubs, murmurs, or gallops. Abdomen: Abdomen is soft, nontender, and nondistended. No palpable organomegaly. No rebound or guarding. Nonsurgical abdomen Musculoskeletal: Pulses full and equal. No cyanosis, clubbing, or edema. Neurological: GCS 9 HISTORY OF PRESENTING ILLNESS HEAVENLY is a 70 year old Male and was seen by me at 22-Apr-2021 01:19 for a chief complaint of unresponsive (PT BROUGHT BY [facility]. PT WAS FOUND BY UNRESPONSIVE ON FLOOR. UNKNOWN DOWN TIME.)(1). Triage Information: Most recent Vital Sign Value Date Temp (F): 96.2 04-22-2021 01:24 Temp (C): 35.6 04-22-2021 01:24 Heart Rate (beats/min): 64 04-22-2021 01:24 Respirations (breaths/min): 20 04-22-2021 01:24 SpO2 (%): 97 04-22-2021 01:24 BP Systolic (mm Hg): 177 04-22-2021 01:24 BP Diastolic (mm Hg): 94 04-22-2021 01:24 PAST MEDICAL HISTORY ALLERGIES/INTOLERANCES : No Known Allergies HEALTH HISTORY: No documented data. OUTPATIENT MEDICATIONS: Home Medications Review Status for Reconciliation: Incomplete Med Status: Incomplete Medication History Drug Name: tamsulosin 0.4 mg oral capsule Instructions: 1 cap(s) orally once a day Drug Name: atorvastatin 80 mg oral tablet Instructions: 1 tab(s) orally once a day Drug Name: potassium chloride 20 mEq oral tablet, extended release Instructions: 1 tab(s) orally once a day Drug Name: losartan 25 mg oral tablet Instructions: 1 tab(s) orally once a day Drug Name: Protonix 40 mg oral delayed release tablet Instructions: 1 tab(s) orally once a day Drug Name: Lasix 40 mg oral tablet Instructions: 1 tab(s) orally once a day Drug Name: Xarelto 20 mg oral tablet Instructions: 1 tab(s) orally once a day (in the evening) Drug Name: carvedilol 6.25 mg oral tablet Instructions: 1 tab(s) orally 2 times a day Drug Name: aspirin 81 mg oral tablet, chewable Instructions: 1 tab(s) orally once a day SIGNIFICANT EVENTS: No documented data. CRITICAL CARE RESULTS: Recent Lab Results: I have reviewed these laboratory results: Glucose_POCT Trending View [id number] 02:06:00 22-Apr-2021 01:38:00 [id number] H <40 L Comprehensive Metabolic Panel 22-Apr-2021 01:41:00 ResultValue Lab Comment: Called- RONI Alexander in [facility], 04/22/2021 02:27 Glucose, Serum 30 LL NA 143 K 3.2 L CL 107 Bicarbonate, Serum 27 Anion Gap, Serum 12 BUN 22 CREAT 1.21 GFR Male 64 Calcium, Serum 10.0 ALB 4.4 ALKP 100 T Pro 7.5 T Bili 0.7 Alanine Aminotransferase, Serum 22 Aspartate Transaminase, Serum 22 Complete Blood Count + Differential 22-Apr-2021 01:41:00 ResultValue White Blood Cell Count 14.3 H Nucleated Erythrocyte Count 0.1 Red Blood Cell Count 5.45 HGB 15.7 HCT 47.8 MCV 88 MCHC 32.8 PLT 311 RDW-CV 13.9 Differential Comment SEE MANUAL DIFF RBC Morphology 22-Apr-2021 01:41:00 ResultValue Red Blood Cell Morphology NORMAL Manual Differential Panel 22-Apr-2021 01:41:00 ResultValue % Seg Neutrophil 83.0 % Band Neutrophil 1.0 % Lymphocyte 14.0 % Monocyte 2.0 % Eosinophil 0.0 % Basophil 0.0 Absolute Neutrophil Count (ANC) 12.01 H Seg Neutrophil Count 11.87 H Band Neutrophil Count 0.14 Lymphocyte, Count 2.00 Monocyte, Count 0.29 Eosinophil, Count 0.00 Basophil, Count 0.00 Troponin I, Serum 22-Apr-2021 01:41:00 ResultValue Troponin I, Serum 0.02 Ethanol Level 22-Apr-2021 01:41:00 Result (more content not included)... Normal [facility] RED CELL MORPHOLOGYon 2021 RBC morphology finding Nom (Bld) NORMAL Normal [facility] Comment on above: Performed By: #### M ORP2 #### [place] [address] Risk Screen - Adult Emergenc yon 04-22-2021 Risk Screen - Adult Emergency Preferred Language: Preferred Language: Preferred Language for Discussing Health Care (patient/designee)Engl harper Advanced Directives: Advance Directive/DNRunable to answer Family Violence Adult: Abuse Screen: Are you or have you been threatened or abused physically, emotionally, or sexually by anyoneunable to assess Clinical assessment: Are there any apparent signs of injuries/behaviors that could be related to abuse/neglectno Learning Assessment (Patient): Learning Assessment (Patient): Patient is Able to be Assessed for Learningno Reason Unable to Assessunconscious Learning Assessment (Other Learner): Learning Assessment (Other Learner): Other learner availableno Pressure Injury/TB/Substance: Pressure Injury: Pressure Injury Present on Admissionno Do you have a coughpt. unable to respond Smoking Statusunable to assess Admission Risk Screen: Significant IndicatorsComplete CAGE: CAGE: Is this an injured patient at a Trauma Center [place] [place]): no Electronic Signatures: Lupis Vega (ADILIA) (Signed 22-Apr-2021 01:28) Authored: Preferred Language, Advanced Directives, Family Violence Adult, Learning Assessment (Patient), Learning Assessment (Other Learner), Pressure Injury/TB/Substance, Pressure Injury, CAGE Last Updated: 22-Apr-2021 01:28 by Lupis Vega (ADILIA) Normal [facility] TROPONIN Ion 04-22-2021 Troponin I.cardiac [Mass/Vol] 0.02 ng/mL Normal 0.00 - 0.03 [facility] Comment on above: Result Comment: LESS THAN 0.04 NG/ML: NEGATIVE REPEAT TESTING IN THREE TO SIX HOURS IF CLINICALLY INDICATED. 0.04 - 0.5 NG/ML: CONSISTENT WITH POSSIBLE CARDIAC DAMAGE AND POSSIBLE INCREASED CLINICAL RISK. SERIAL MEASUREMENTS MAY HELP ASSESS EXTENT OF MYOCARDIAL DAMAGE. >0.5 NG/ML: CONSISTENT WITH CARDIAC DAMAGE, INCREASED CLINICAL RISK AND MYOCARDIAL INFARCTION. SERIAL MEASUREMENTS MAY HELP ASSESS EXTENT OF MYOCARDIAL DAMAGE. . Note: Troponin I testing is performed using different testing methodology at [facility] than at other [facility] hospitals. Direct result comparisons should only be made within the same method. Performed By: #### T ROP2 ####[facility] [id number] Triage - EDon 04-22-2021 Triage - ED Chart Review: PRIMARY ASSESSMENT HEAVENLY PRATHER's primary assessment is Within Defined Limits. The airway is open and patent. Breathing spontaneous and unlabored with clear breath sounds bilaterally. Circulation is normal with good peripheral pulses. Skin is warm and dry and color is normal for race. ARRIVAL INFORMATION Means of Arrival: stretcher Mode of Arrival: ambulance Agency: [facility] Agency Name: [facility] Arrival From: home Accompanied By: self Language: Spoken Language Preferred: Samoan CHIEF COMPLAINT HEAVENLY PRATHER is a Male patient with a chief complaint of unresponsive (PT BROUGHT BY [facility]. PT WAS FOUND BY UNRESPONSIVE ON FLOOR. UNKNOWN DOWN TIME.). Triage Date/Time: 22-Apr-2021 01:24 SHEREEN: 2 Pain Rating (0-10): unable to assess Vital Signs: Temperature: 96.2F ( 35.6C) taken forehead Blood Pressure: 177/94 Mean: Heart Rate: 64 Respiratory Rate: 20 Pulse Oximetry: 97% on supplemental O2. Pretty Coma Scale: Best Eye Response: (E1) none Best Motor Response: (M1) none Best Verbal Response: (V1) none [place] Score: 3 Cough lasting greater than 3 weeks: no Mask applied: no Patient has homicidal thoughts: unable to assess Symptoms Are Negative For: aphasia, ataxia, confusion, diaphoresis, facial droop, headache, numbness, seizure and vomiting. Last Known Well: unknown Risk Screens Suicide Risk Screen [place] Risk Screen: unable to assess [place] Risk Screen Prado Fall Scale Screening Unable to assess unable to assess Interventions: Prado Fall Interventions: HIGH INTERVENTIONS *Low and Moderate Interventions Plus: * supervised toileting at all times PAST MEDICAL HISTORY Immunization History: Last Known Tetanus Immunization: Unknown TRAVEL HISTORY Travel History Coronavirus Screening: unable to answer Travel Exposure History: NO travel to International locations in the past 30 days PAIN Pain Scale Used: BAILEE Pain Rating (0-10): unable to assess Past Medical History: Past Medical History Reviewedyes Electronic Signatures: Lupis Vega) (Signed 22-Apr-2021 01:37) Authored: Quick Triage, Risk Screens, Pain, Arrival, ABCD, Immunizations, Travel History, Chart Review, Scores, Past Medical History Last Updated: 22-Apr-2021 01:37 by Lupis Vega) [facility] URINALYSISon 04-22-2021 Appearance (U) Canceled [facility] Comment on above: Order Comment: TEST URINALYSIS WAS CANCELLED, 04/22/2021 15:20 Performed By: #### U A #### [address] [place] [address] ASCORBIC ACID Canceled [facility] Comment on above: Order Comment: TEST URINALYSIS WAS CANCELLED, 04/22/2021 15:20 Result Comment: Conc entrations > = 20 mg/dL of ascorbic acid can be expected to cause strong interference in the reactions testing for glucose, nitrite and blood. It is recommended to discontinue Vitamin C administration and retest in 10 hours. Performed By: #### U A #### [address] [address] Bilirubin Ql (U) Canceled [facility] Comment on above: Order Comment: TEST URINALYSIS WAS CANCELLED, 04/22/2021 15:20 Performed By: #### U A #### [address] [address] Color (U) Canceled [facility] Comment on above: Order Comment: TEST URINALYSIS WAS CANCELLED, 04/22/2021 15:20 Performed By: #### U A #### [address] [address] Glucose Ql (U) Canceled [facility] Comment on above: Order Comment: TEST URINALYSIS WAS CANCELLED, 04/22/2021 15:20 Performed By: #### U A #### [address] [address] Hemoglobin Ql (U) Canceled [facility] Comment on above: Order Comment: TEST URINALYSIS WAS CANCELLED, 04/22/2021 15:20 Performed By: #### U A #### [address] [address] Ketones Ql (U) Canceled [facility] Comment on above: Order Comment: TEST URINALYSIS WAS CANCELLED, 04/22/2021 15:20 Performed By: #### U A #### [address] [address] Leukocyte esterase Test strip Ql (U) Canceled [facility] Comment on above: Order Comment: TEST URINALYSIS WAS CANCELLED, 04/22/2021 15:20 Performed By: #### U A #### [address] [address] Nitrite Ql (U) Canceled [facility] Comment on above: Order Comment: TEST URINALYSIS WAS CANCELLED, 04/22/2021 15:20 Performed By: #### U A #### [address] [id number] pH Canceled [facility] Comment on above: Order Comment: TEST URINALYSIS WAS CANCELLED, 04/22/2021 15:20 Performed By: #### U A #### [address] [id number] Protein Ql (U) Canceled [facility] Comment on above: Order Comment: TEST URINALYSIS WAS CANCELLED, 04/22/2021 15:20 Performed By: #### U A #### [address] [id number] Specific gravity (U) [Rel density] Canceled [facility] Comment on above: Order Comment: TEST URINALYSIS WAS CANCELLED, 04/22/2021 15:20 Performed By: #### U A #### [address] [id number] UROBILINOGEN Canceled [facility] Comment on above: Order Comment: TEST URINALYSIS WAS CANCELLED, 04/22/2021 15:20 Performed By: #### U A #### [address] [address] Office Visiton 11-14-2016 Documentation of current medications (procedure) Done Invalid Interpretation Code [employer] Work Phone: Fall risk assessment No Invalid Interpretation Code [employer] Work Phone: CNOVon 10-09-2016 CNOV Office Visit (PODIWS) HEAVENLY PRATHER ([id number]) 1950 [facility] Time Provider Department10/09/16 9:55 AM CLAIRE MANCILLA During your visit today, we recorded the following information about you:Claire Mancilla DPM 10/09/2016 8:51 PM SignedFollow up podiatric office visit for:Chief Complaint: This 66 year old who presents for follow up:left foot s/pleft 4th toe flexor tenotomyPatient has been doing the following since last visit: Patient has returnedPAIN EVALUATION No data found.Hemoglobin I4PGplu Value Ref Range Rlnfyl6208/26/2016 7.6 (H) 4.3 - 5.6 % FinalComment:Canadian Diabetes Association guidelines indicate that patients with HgbA1c inthe range 5.7-6.4% are at increased risk for development of diabetes, andintervention by lifestyle modification may be beneficial. HgbA1c greater orequal to 6.5% is considered diagnostic of diabetes. PCP : AMADOR Roldan MEDICAL HISTORYDiagnosis Date- BPH w/o urinary obs/LUTS 08/26/2016- CVA (cerebral vascular accident) (HCC) 02/2015- Diabetes mellitus (HCC)- Diabetic polyneuropathy associated with type 2 diabetes mellitus (HCC)08/26/2016- Hammertoe of left foot 08/26/2016 4th toe- HLD (hyperlipidemia) 08/26/2016- Ischemic cardiomyopathy 08/26/2016- Myocardial infarction (HCC)- Posterior tibial tendon dysfunction (PTTD) of both lower extremities08/26/2016Cu rrent Outpatient Prescriptions:HYDROcod one-acetaminophen (NORCO) 5-325 mg per tablet Take 1 tablet by mouthevery 6 hours as needed for Pain.INSULIN LISPRO (HUMALOG SUBCUTANEOUS) Inject 7 Units subcutaneously. 7 units ruthy, 6 units in afternoon ANDamp; 7 units qhsinsulin NPH human (NOVOLIN N, HUMULIN N) injection Inject 10 Unitssubcutaneously one time only. 10 units am and 15 qhslisinopril (ZESTRIL, PRINIVIL) 5 mg tablet Take 5 mg by mouth once daily.aspirin, enteric coated (ASPIRIN, ENTERIC COATED) 81 mg EC tablet Take 81 mg bymouth once daily.atorvastatin (LIPITOR) 40 mg tablet Take 40 mg by mouth once daily.carvedilol (COREG) 6.25 mg tablet Take 6.25 mg by mouth twice daily with meals.furosemide (LASIX) 40 mg tablet Take 40 mg by mouth once daily.Multivitamin capsule Take 1 capsule by mouth once daily.pantoprazole DR (PROTONIX) 40 mg tablet Take 40 mg by mouth once daily.tamsulosin ER (FLOMAX) 0.4 mg cp24 Take 0.4 mg by mouth.apixaban (ELIQUIS) 5 mg tab tab(s) Take 5 mg by mouth twice daily.No current facility-administered medications for this visit.ALLERGIESAllerge n Reactions- Penicillin Unknown In childhood. Reaction unknown.PAST SURGICAL NLVUBZC9303/30/2015: CABG (3) VEIN GRAFTS ANDamp; ARTERIAL GRAFT(S)04/2015: CARDIAC DEFIBRILLATOR PLACEMENT HX04/2015: [id number]: PAST SURGICAL HISTORY OF Right Comment: removal of posterior leg d/t flesh eating bacteriaPhysical Exam:Constitutional: Pt is a well developed 66 year old male who is alert,oriented, cooperative and in no apparent distress.OBJECTIVE:NVS I unchanged from previous visit.Dermatological:N ails 1-5 b/l are normal. Webspaces clean and dry 1-4 b/l. Skin appears wellhydrated and supple. good color, texture, turgor. No open lesions present. Nocallosities present.Musculoskeleta l/Orthopaedic:Patient has no pain to palpation of left footThere is hammertoe of left 5th toe but no painThere is hammertoe of left 2nd toe but no painThere is rectus appearance of left 4th toe.There is arthritic changes of right medial arch but no painASSESSMENT:(M20.42 ) Hammer toe of left foot (primary encounter diagnosis)(E11.42) Diabetic polyneuropathy associated with type 2 diabetes mellitus (HCC)(M12.9) ArthropathyPLAN:1. History and physical examination completed today.2. Patient was examined and informed of current findings3. Since undergoing procedure for flexor tenotomy of left 4th toe, he remainsulcer free.4. Discussed hammertoe of left 5th toe. He needs to monitor this as thiscould lead to problems in future. If problems develop, he could elect forsurgical correction via flexor tenotomy and derotational artroplasty5. Continue with appopriate shoes for right foot6. Diabetic education was discussed7. F/u in 6 monthsMatthew Testrake, DPMRefbethany Provider: CLAIRE MANCILLA [[id number]]Allergies As of Date: 10/09/2016 Noted Allergy ReactionPENICILLIN 07/31/2016 16 - Unknown Comments: In childhood. Reaction unknown.Date Reviewed: 10/09/2016Reviewed by: Teetee Seo Ma - Fully AssessedReason for Visit: Post Op [174]Primary Visit Diagnosis:Hammer toe of left foot [M20.42] Other Visit Diagnoses:Diabetic polyneuropathy associated with type 2 diabetes mellitus (HCC) [E11.42] Arthropathy [M12.9]Prescriptions as of 10/09/2016 Sig: HYDROCODONE 5 MG-ACETAMINOPHE* Take 1 tablet by mouth every * HUMALOG SUBCUTANEOUS Inject 7 Units subcutaneously* INSULIN NPH HUMAN RECOMB 100 * Inject 10 Units subcutaneousl* LISINOPRIL 5 MG TABLET Take 5 mg by mouth once daily. ASPIRIN 81 MG TABLET,DELAYED * Take 81 mg by mouth once melinda* ATORVASTATIN 40 MG TABLET Take 40 mg by mouth once melinda* CARVEDILOL 6.25 MG TABLET Take 6.25 mg by mouth twice d* FUROSEMIDE 40 MG TABLET Take 40 mg by mouth once melinda* MULTIVITAMIN CAPSULE Take 1 capsule by mouth once * PANTOPRAZOLE 40 MG TABLET,DEL* Take 40 mg by mouth once melinda* TAMSULOSIN 0.4 MG CAPSULE Take 0.4 mg by mouth. APIXABAN 5 MG TABLET Take 5 mg by mouth twice melinda*Problem List As Of Date 10/09/2016 Noted Resolved CVA (cerebral vascular accident) ([facility]) [I63.9] INVALID FOR* More... Myocardial infarction ([facility]) [I21.3] INVALID FOR* More... CAD (coronary artery disease) [I25.10] INVALID FOR* Diabetes mellitus ([facility]) [E11.9] INVALID FOR* Essential hypertension [I10] INVALID FOR* HLD (hyperlipidemia) [E78.5] INVALID FOR* BPH w/o urinary obs/LUTS [N40.0] INVALID FOR* Ischemic cardiomyopathy [I25.5] INVALID FOR* Posterior tibial tendon dysfunction (PTTD) of b*INVALID FOR* Hammertoe of left foot [M20.42] INVALID FOR* More... Diabetic polyneuropathy associated with type 2 *INVALID FOR* PAD (peripheral artery disease) ([facility]) [I73.9] INVALID FOR* Status:Closed by CLAIRE MANCILLA DPM on 10/09/16 [facility] PROGRESSon 10-09-2016 PROGRESS HNO ID: [id number]: Claire Zelayaervice: (none)Author Type: PhysicianType: Progress NotesFiled: 10/09/2016 8:51 PMNote Text:Follow up podiatric office visit for:Chief Complaint: This 66 year old who presents for follow up:left foots/p left 4th toe flexor tenotomyPatient has been doing the following since last visit: Patient hasreturnedPAIN EVALUATION No data found.Hemoglobin T7IAeey Value Ref Range Wkmjyd5308/26/2016 7.6 (H) 4.3 - 5.6 % FinalComment:Canadian Diabetes Association guidelines indicate that patients umbdFffR8e inthe range 5.7-6.4% are at increased risk for development of diabetes, andintervention by lifestyle modification may be beneficial. HgbA1c greaterorequal to 6.5% is considered diagnostic of diabetes. PCP : AMADOR Roldan MEDICAL HISTORYDiagnosis Date- BPH w/o urinary obs/LUTS 08/26/2016- CVA (cerebral vascular accident) ([facility]) 02/2015- Diabetes mellitus ([facility])- Diabetic polyneuropathy associated with type 2 diabetes mellitus ([facility])08/26/2016- Hammertoe of left foot 08/26/2016 4th toe- HLD (hyperlipidemia) 08/26/2016- Ischemic cardiomyopathy 08/26/2016- Myocardial infarction ([facility])- Posterior tibial tendon dysfunction (PTTD) of both lower extremities08/26/2016Cu rrent Outpatient Prescriptions:HYDROcod one-acetaminophen (NORCO) 5-325 mg per tablet Take 1 tablet bymouth every 6 hours as needed for Pain.INSULIN LISPRO (HUMALOG SUBCUTANEOUS) Inject 7 Units subcutaneously. 7units in am, 6 units in afternoon AND 7 units qhsinsulin NPH human (NOVOLIN N, HUMULIN N) injection Inject 10 Unitssubcutaneously one time only. 10 units am and 15 qhslisinopril (ZESTRIL, PRINIVIL) 5 mg tablet Take 5 mg by mouth once daily.aspirin, enteric coated (ASPIRIN, ENTERIC COATED) 81 mg EC tablet Take 81mg by mouth once daily.atorvastatin (LIPITOR) 40 mg tablet Take 40 mg by mouth once daily.carvedilol (COREG) 6.25 mg tablet Take 6.25 mg by mouth twice daily withmeals.furosemide (LASIX) 40 mg tablet Take 40 mg by mouth once daily.Multivitamin capsule Take 1 capsule by mouth once daily.pantoprazole DR (PROTONIX) 40 mg tablet Take 40 mg by mouth once daily.tamsulosin ER (FLOMAX) 0.4 mg cp24 Take 0.4 mg by mouth.apixaban (ELIQUIS) 5 mg tab tab(s) Take 5 mg by mouth twice daily.No current facility-administered medications for this visit.ALLERGIESAllerge n Reactions- Penicillin Unknown In childhood. Reaction unknown.PAST SURGICAL ASUQERH9903/30/2015: CABG (3) VEIN GRAFTS AND ARTERIAL GRAFT(S)04/2015: CARDIAC DEFIBRILLATOR PLACEMENT HX04/2015: [id number]: PAST SURGICAL HISTORY OF Right Comment: removal of posterior leg d/t flesh eating bacteriaPhysical Exam:Constitutional: Pt is a well developed 66 year old male who is alert,oriented, cooperative and in no apparent distress.OBJECTIVE:NVS I unchanged from previous visit.Dermatological:N ails 1-5 b/l are normal. Webspaces clean and dry 1-4 b/l. Skin appearswell hydrated and supple. good color, texture, turgor. No open lesionspresent. No callosities present.Musculoskeleta l/Orthopaedic:Patient has no pain to palpation of left footThere is hammertoe of left 5th toe but no painThere is hammertoe of left 2nd toe but no painThere is rectus appearance of left 4th toe.There is arthritic changes of right medial arch but no painASSESSMENT:(M20.42 ) Hammer toe of left foot (primary encounter diagnosis)(E11.42) Diabetic polyneuropathy associated with type 2 diabetes mellitus(HCC)(M12.9) ArthropathyPLAN:1. History and physical examination completed today.2. Patient was examined and informed of current findings3. Since undergoing procedure for flexor tenotomy of left 4th toe, heremains ulcer free.4. Discussed hammertoe of left 5th toe. He needs to monitor this as thiscould lead to problems in future. If problems develop, he could elect forsurgical correction via flexor tenotomy and derotational artroplasty5. Continue with appopriate shoes for right foot6. Diabetic education was discussed7. F/u in 6 monthsMatthew Testnelli, DPBella Normal [facility] Chart Maintenanceon 07-05-19 17 Hemoglobin A1c/Hemoglobin.tota l mass fraction (Bld) 7.9 % Invalid Interpretation Code [employer] Work Phone: Coumadin Management: Varsha n Calcon 06-05-2016 INR Coag RelTime (Bld) Hospital lab Invalid Interpretation Code [employer] Work Phone: INR Coag RelTime (Bld) 2 to 3 Invalid Interpretation Code [employer] Work Phone: INR Coag RelTime (PPP) 2.4 {INR} Invalid Interpretation Code [employer] Work Phone: Prothrombin time (PT) Coag time (PPP) 24.9 s Invalid Interpretation Code [employer] Work Phone: Lab Report: Prothrombin Time w/INRon 06-05-2016 Prothrombin time (PT) Coag time (PPP) 24.9 s High 11.7-14.9 [employer] Work Phone: Office Visiton 05-09-2016 Dietary management education, guidance, and counseling (procedure) yes Invalid Interpretation Code [employer] Work Phone: Clinical Lists 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 Left ventricular Ejection fraction 20 % Invalid Interpretation Code [employer] Work Phone: Lab Report: Lipid Profileon 02-06-2016 Cholesterol 112 mg/dL Invalid Interpretation Code 200 [employer] Work Phone: HDL Cholesterol 48 mg/dL Invalid Interpretation Code [employer] Work Phone: LDL Cholesterol 51 mg/dL Invalid Interpretation Code 0-130 [employer] Work Phone: Triglyceride 65 mg/dL Invalid Interpretation Code [employer] Work Phone: very low density lipoproteins 13 mg/dL Invalid Interpretation Code 5-40 [employer] Work Phone: Lab Report: Liver Profileon 02-06-2016 Alanine aminotransferase (ALT) 43 U/L Invalid Interpretation Code 12-78 [employer] Work Phone: Albumin 3.9 g/dL Invalid Interpretation Code 3.4-5.0 [employer] Phone: Alkaline phosphatase (ALP) 124 U/L High 45-117 [employer] Work Phone: Aspartate aminotransferase (AST) 26 U/L Invalid Interpretation Code 15-37 [employer] Work Phone: Bilirubin (direct) 0.23 mg/dL Invalid Interpretation Code 0.00-0.30 [employer] Work Phone: Bilirubin (total) 0.80 mg/dL Invalid Interpretation Code 0.20-1.00 [employer] Phone: Globulin 3.5 g/dL Invalid Interpretation Code 2.3-3.5 [employer] Work Phone: Protein 7.4 g/dL Invalid Interpretation Code 6.4-8.2 [employer] Work Phone: Lab Report: PSA,Total - Cynthia al Screenon 02-06-2016 PSA,TOT SCREEN 0.42 ng/mL Invalid Interpretation Code 0.00-4.00 [employer] Phone: Office Visiton 09-05-2015 Tobacco use CPHS Never smoker Invalid Interpretation Code [employer] Phone: Clinical Lists Update: Pacer Preloadon 08-21-2015 Left ventricular Ejection fraction 25 % Invalid Interpretation Code [employer] Phone: Office Visit: 2 month F/U DM on 06-26-2015 Tobacco smoking status NHIS Never Invalid Interpretation Code [employer] Phone: Office Visiton 05-15-2015 cardiac risk group C Invalid Interpretation Code [employer] Phone: General cardiovascular disease 10Y risk [#] [place] no N/A Invalid Interpretation Code [employer] Phone: Replaced Document: Lynn HOLLIS Observationson 05-15-2015 EKG QRS axis 25 deg Invalid Interpretation Code [employer] Work Phone: Interpretation Sinus Rhythm -Poor R-wave progression -nonspecific -consider old anterior infarct. -Nonspecific ST depression + T-abnormality -Nondiagnostic -Possible Lateral ischemia. 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 Chloride 102 mmol/L Invalid Interpretation Code [employer] Work Phone: CO2 30 mmol/L Invalid Interpretation Code [employer] Work Phone: Creatinine 1.34 mg/dL Invalid Interpretation Code [employer] Work Phone: Hematocrit (HCT) 27.4 % Invalid Interpretation Code [employer] Work Phone: Hemoglobin mass conc (Bld) 8.8 g/dL Invalid Interpretation Code [employer] Work Phone: Platelets 374 10*3/mm3 Invalid Interpretation Code [employer] Work Phone: Potassium molar conc 3.6 mmol/L Invalid Interpretation Code [employer] Work Phone: Sodium 140 mmol/L Invalid Interpretation Code [employer] Work Phone: Urea nitrogen 22 mg/dL Invalid Interpretation Code [employer] Work Phone: WBC (Leukocytes) 12.4 10*3/uL Invalid Interpretation Code [employer] Work Phone: Lab Report: Bedside Glucoseo n 03-22-2015 Glucose mass conc 119 mg/dL High 70-110 [employer] Work Phone: Lab Report: Prothrombin Time Fingerstickon 03-22-2015 Prothrombin time (PT) Coag time (PPP) 20.1 s High 11.9-14.4 [employer] Work Phone: Lab Report: Basic Metabolic Profile (BMP)on 03-14-2015 Anion gap 6 mmol/L Invalid Interpretation Code 5-15 [employer] Work Phone: BUN/Creatinine Ratio 23.3 RATIO High 10-20 [employer] Work Phone: Calcium 9.1 mg/dL Invalid Interpretation Code 8.5-10.1 [employer] Work Phone: eGFR (non-black) 78 mL/min/{1.73_m2} Invalid Interpretation Code >60 [employer] Work Phone: eGFR (non-black) 65 mL/min/{1.73_m2} Invalid Interpretation Code >60 [employer] Work Phone: Glucose mass conc 128 mg/dL High 70-110 [employer] Work Phone: Lab Report: CBC-Complete Blo od Cnt No Diffon 03-14-2015 Erythrocyte distribution width Auto Ratio (RBC) 12.9 % Invalid Interpretation Code 11.6-14.6 [employer] Work Phone: Erythrocytes (RBC) 4.89 10*6/uL Invalid Interpretation Code 4.6-6.2 [employer] Work Phone: MCH 28.6 pg Invalid Interpretation Code 27.0-32.0 [facility] Work Phone: MCHC mass conc (RBC) 33.3 G/GL Invalid Interpretation Code 32-36 [facility] Work Phone: MCV 85.9 fL Invalid Interpretation Code 80-94 [facility] Work Phone: PMV by Roseanna 9.1 fL Invalid Interpretation Code 6.2-12.0 [facility] Work Phone: RDW SD 39.6 fL Invalid Interpretation Code 35.1-43.9 [facility] Work Phone: Clinical Lists 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 02-14-2015 BNP 1081 pg/mL Invalid Interpretation Code [facility] Work Phone: Vital Signs Date Time Vital Sign Value Performing Clinician Facility 08-03-2023 10:00-0400 Diastolic blood pressure 76 mm[Hg] Mendez Zacarias DO Work Phone: [facility] 08-03-2023 10:00-0400 Heart rate 71 /min Mendez Zacarias DO Work Phone: [facility] 08-03-2023 10:00-0400 Respiratory rate 16 /min Mendez Zacarias DO Work Phone: [facility] 08-03-2023 10:00-0400 SaO2% (BldA) [Mass fraction] 96 % Mendez Zacarias DO Work Phone: [facility] 08-03-2023 10:00-0400 Systolic blood pressure 121 mm[Hg] Mendez Zacarias DO Work Phone: [facility] 08-03-2023 06:52-0400 Body mass index (BMI) [Ratio] 28.94 kg/m2 Mendez Zacarias DO Work Phone: [facility] 08-03-2023 06:52-0400 Body temperature 97 [degF] Mendez Zacarias DO Work Phone: [facility] 08-03-2023 06:52-0400 Body weight 88.91 kg Mendez Zacarias DO Work Phone: [facility] 07-31-2023 19:37-0400 Diastolic blood pressure 66 mm[Hg] Kwan Mesa DO Work Phone: [facility] 07-31-2023 19:37-0400 Systolic blood pressure 120 mm[Hg] Kwan Mesa DO Work Phone: [facility] 07-31-2023 19:01-0400 Heart rate 74 /min Kwan Mesa DO Work Phone: [facility] 07-31-2023 19:01-0400 Respiratory rate 16 /min Kwan Mesa DO Work Phone: [facility] 07-31-2023 19:01-0400 SaO2% (BldA) [Mass fraction] 98 % Kwan Mesa DO Work Phone: [facility] 07-31-2023 17:30-0400 Body height 175.3 cm Kwan Mesa DO Work Phone: [facility] 07-31-2023 17:30-0400 Body mass index (BMI) [Ratio] 28.94 kg/m2 Kwan Mesa DO Work Phone: [facility] 07-31-2023 17:30-0400 Body temperature 97.2 [degF] Kwan Mesa DO Work Phone: [facility] 07-31-2023 17:30-0400 Body weight 88.91 kg Kwan Mesa DO Work Phone: [facility] 07-03-2023 23:40-0400 Diastolic blood pressure 78 mm[Hg] Jay Raquel DO Work Phone: [facility] 07-03-2023 23:40-0400 Heart rate 69 /min Jay Raquel DO Work Phone: [facility] 07-03-2023 23:40-0400 Respiratory rate 17 /min Jay Raquel DO Work Phone: [facility] 07-03-2023 23:40-0400 SaO2% (BldA) [Mass fraction] 98 % Jay Raquel DO Work Phone: [facility] 07-03-2023 23:40-0400 Systolic blood pressure 142 mm[Hg] Jay Cedeño DO Work Phone: [facility] 07-03-2023 21:09-0400 Body height 175.3 cm Jay Cedeño DO Work Phone: [facility] 07-03-2023 21:09-0400 Body mass index (BMI) [Ratio] 29.53 kg/m2 Jay Cedeño DO Work Phone: [facility] 07-03-2023 21:09-0400 Body temperature 98.29 [degF] Jay Cedeño DO Work Phone: [facility] 07-03-2023 21:09-0400 Body weight 90.72 kg Jay Cedeño DO Work Phone: [facility] 06-26-2023 03:45-0400 Diastolic blood pressure 84 mm[Hg] Mendez Zacarias DO Work Phone: [facility] 06-26-2023 03:45-0400 Heart rate 78 /min Mendez Zacarias DO Work Phone: [facility] 06-26-2023 03:45-0400 Respiratory rate 16 /min Mendez Zacarias DO Work Phone: [facility] 06-26-2023 03:45-0400 SaO2% (BldA) [Mass fraction] 98 % Mendez Zacarias DO Work Phone: [facility] 06-26-2023 03:45-0400 Systolic blood pressure 146 mm[Hg] Mendez Zacarias DO Work Phone: [facility] 06-26-2023 01:47-0400 Body temperature 98.01 [degF] Mendez Zacarias DO Work Phone: [facility] 06-26-2023 01:37-0400 Body height 175.3 cm Mendez Zacarias DO Work Phone: [facility] 06-26-2023 01:37-0400 Body mass index (BMI) [Ratio] 29.09 kg/m2 Mendez Zacarias DO Work Phone: [facility] 06-26-2023 01:37-0400 Body weight 89.36 kg Mendez Zacarias DO Work Phone: [facility] 04-02-2023 17:46-0500 Diastolic blood pressure 71 mm[Hg] Kwan Mesa DO Work Phone: [facility] 04-02-2023 17:46-0500 Heart rate 74 /min Kwan Mesa DO Work Phone: [facility] 04-02-2023 17:46-0500 Respiratory rate 16 /min Kwan Mesa DO Work Phone: [facility] 04-02-2023 17:46-0500 SaO2% (BldA) [Mass fraction] 98 % Kwan Mesa DO Work Phone: [facility] 04-02-2023 17:46-0500 Systolic blood pressure 139 mm[Hg] Kwan Mesa DO Work Phone: [facility] 04-02-2023 15:49-0500 Body height 175.3 cm Kwan Mesa DO Work Phone: [facility] 04-02-2023 15:49-0500 Body mass index (BMI) [Ratio] 29.53 kg/m2 Kwan Mesa DO Work Phone: [facility] 04-02-2023 15:49-0500 Body temperature 96.49 [degF] Kwan Mesa DO Work Phone: [facility] 04-02-2023 15:49-0500 Body weight 90.72 kg Kwan Mesa DO Work Phone: [facility] 04-22-2021 04:00-0500 Diastolic blood pressure 75 mm[Hg] Jay Cedeño Other Phone: [facility] 04-22-2021 04:00-0500 Heart rate 63 /min Jay Cedeño Other Phone: [facility] 04-22-2021 04:00-0500 Systolic blood pressure 142 mm[Hg] Jay Cedeño Other Phone: [facility] 04-22-2021 03:24-0500 Body temperature 96.08 [degF] Jay Cedeño Other Phone: [facility] 04-22-2021 03:24-0500 Respiratory rate 20 /min Jay Cedeño Other Phone: [facility] 04-22-2021 03:24-0500 SaO2% (BldA) [Mass fraction] 97 % Jay Cedeño Other Phone: [facility] 11-14-2016 13:18-0400 BMI (Body Mass [...] Phone: 06-26-2015 08:53-0400 Body Temperature 98.3 [degF] [facility] Work Phone: 05-15-2015 10:27-0500 Pulse Oximetry 98 % [facility] Work Phone: Encounters Encounter Date Encounter Type Care Provider Facility Start: 08-03-2023 End: 08-04-2023 ambulatory MENDEZ G RELL [facility] Start: 08-03-2023 End: 08-03-2023 Subsequent hospital visit by physician Marc Rosen Non[facility] Comment on above: Arrived Start: 08-03-2023 End: 08-03-2023 Emergency department patient visit Mendez Barrientos Rell DO Work Phone: [facility] Comment on above: Hypoglycemia (Primar y Dx) Start: 07-31-2023 End: 08-01-2023 ambulatory DANA [facility] Start: 07-31-2023 End: 07-31-2023 Subsequent hospital visit by physician Marc Rosen Nonv[facility] Comment on above: Arrived Start: 07-31-2023 End: 07-31-2023 Emergency department patient visit Kwan Mesa DO Work Phone: [facility] Comment on above: Hypoglycemia (Primar y Dx) Start: 07-03-2023 End: 07-03-2023 Emergency department patient visit JYA BERNARDUTZMAN [facility] Comment on above: Hypoglycemia (Primar y Dx) Start: 06-26-2023 End: 06-26-2023 Emergency department patient visit Mendez Zacarias DO Work Phone: [facility] Comment on above: Hypoglycemia (Primar y Dx) Start: 04-02-2023 End: 04-02-2023 Emergency department patient visit Kwan Mesa DO Work Phone: [facility] Comment on above: Hypoglycemia (Primar y Dx) Start: 04-22-2021 End: 04-22-2021 Emergency department patient visit Stephen Carias [facility] Emergency 15 Start: 10-09-2016 End: 10-11-[address] [facility] Start: 09-02-2016 End: 09-02-2016 Ambulatory [facility] Procedures Date Procedure Procedure Detail Performing Clinician Start: 08-03-2023 DISCHARGE PATIENT JAY CEDEÑO Start: 08-03-2023 URINALYSIS MICROSCOPIC WITH REFLEX CULTURE JAY CEDEÑO Start: 08-03-2023 URINALYSIS WITH REFLEX CULTURE AND MICROSCOPIC JAY CEDEÑO Start: 08-03-2023 EXTRA TUBES JAY CEDEÑO Start: 08-03-2023 EXTRA URINE TRINIDAD TUBE JAY CEDEÑO Start: 08-03-2023 SST TOP JAY CEDEÑO Start: 08-03-2023 Comprehensive metabolic 2000 panel - Serum or Plasma JAY CEDEÑO Start: 08-03-2023 TROPONIN SERIES- (INITIAL, 1 HR) JAY CEDEÑO Start: 08-03-2023 Ammonia [Mass/volume] in Plasma JAY CEDEÑO Start: 08-03-2023 CBC W Auto Differential panel - Blood JAY CEDEÑO Start: 08-03-2023 ECG 12-LEAD JAY CEDEÑO Start: 08-03-2023 Natriuretic peptide B [Mass/volume] in Blood JAY CEDEÑO Start: 08-03-2023 CT HEAD WO IV CONTRAST JAY CEDEÑO Start: 08-03-2023 XR CHEST 1 VIEW JAY CEDEÑO Start: 08-03-2023 Glucose [Mass/volume] in Serum or Plasma JAY CEDEÑO Start: 08-03-2023 Urinalysis complete W Reflex Culture panel - Urine Mendez Zacarias DO Work Phone: Start: 08-03-2023 Urnls dip stick/tablet reagent auto microscopy Mendez Zacarias DO Work Phone: Start: 08-03-2023 EXTRA TUBES Kwan Gilbert O Work Phone: Start: 08-03-2023 LIGHT BLUE TOP Kwan Gilbert O Work Phone: Start: 08-03-2023 SST TOP Kwan Mesa D O Work Phone: Start: 08-03-2023 End: 08-03-2023 Comprehensive metabolic panel Mendez Zacarias DO Work Phone: Start: 08-03-2023 Troponin I.cardiac panel - Serum or Plasma by High sensitivity method Mendez Zacarias DO Work Phone: Start: 08-03-2023 Ecg routine ecg w/least 12 lds trcg only w/o i&r Mendez Zacarias DO Work Phone: Start: 08-03-2023 Ct head/brain w/o contrast material Mendez Zacarias DO Work Phone: Start: 08-03-2023 Radiologic exam chest single view Mendez Zacarias DO Work Phone: Start: 07-31-2023 Glucose [Mass/volume] in Serum or Plasma JAY CEDEÑO Start: 07-31-2023 EXTRA URINE TRINIDAD TUBE JAY CEDEÑO Start: 07-31-2023 URINALYSIS MICROSCOPIC WITH REFLEX CULTURE JAY CEDEÑO Start: 07-31-2023 URINALYSIS WITH REFLEX CULTURE AND MICROSCOPIC JAY CEDEÑO Start: 07-31-2023 ECG 12-LEAD JAY CEDEÑO Start: 07-31-2023 Glucose [Mass/volume] in Serum or Plasma JAY CEDEÑO Start: 07-31-2023 Glucose quantitative blood xcpt reagent strip Dana Mandujano MD Work Phone: Start: 07-31-2023 Urinalysis complete W Reflex Culture panel - Urine Kwan Mesa DO Work Phone: Start: 07-31-2023 Urnls dip stick/tablet reagent auto microscopy Kwan Mesa DO Work Phone: Start: 07-31-2023 Ecg routine ecg w/least 12 lds trcg only w/o i&r Dnaa Mandujano MD Work Phone: Start: 07-31-2023 End: 07-31-2023 Glucose quantitative blood xcpt reagent strip Kwan Mesa DO Work Phone: Start: 07-04-2023 Glucose [Mass/volume] in Serum or Plasma JAY CEDEÑO Start: 07-03-2023 Glucose [Mass/volume] in Serum or Plasma JAY CEDEÑO Start: 07-03-2023 Glucose quantitative blood xcpt reagent strip Interface Unspecifiedprovider Work Phone: Start: 07-03-2023 End: 07-03-2023 Glucose quantitative blood xcpt reagent strip Interface Unspecifiedprovider Work Phone: Start: 06-26-2023 Glucose [Mass/volume] in Serum or Plasma JAY CEDEÑO Start: 06-26-2023 Glucose [Mass/volume] in Serum or Plasma JAY CEDEÑO Start: 06-26-2023 Glucose quantitative blood xcpt reagent strip Mendez Zacarias DO Work Phone: Start: 06-26-2023 End: 06-26-2023 Glucose quantitative blood xcpt reagent strip Mendez Zacarias DO Work Phone: Start: 04-02-2023 EXTRA URINE TRINIDAD TUBE JAY CEDEÑO Start: 04-02-2023 URINALYSIS WITH REFLEX CULTURE AND MICROSCOPIC JAY CEDEÑO Start: 04-02-2023 Basic metabolic 2000 panel - Serum or Plasma JAY CEDEÑO Start: 04-02-2023 CBC W Auto Differential panel - Blood JAY CEDEÑO Start: 04-02-2023 Glucose [Mass/volume] in Serum or Plasma JAY CEDEÑO Start: 04-02-2023 Urnls dip stick/tablet rgnt auto w/o microscopy Ivy Tineo PA-C Work Phone: Start: 04-02-2023 End: 04-02-2023 Basic metabolic panel calcium total Ivy KEMP-C Work Phone: Start: 07-03-2021 Antonella Zacarias DO Work Phone: Start: 04-22-2021 End: 04-22-2021 EKG impression Stephen Carias Start: 01-06-2017 End: 01-07-2017 Prgrmng dev eval implantable in persn 1 ld dfb Jose Ulrich MD Work Phone: Start: 10-07-2016 End: 11-07-2016 Follow Up Appt 3 months Jose Ulrich MD Work Phone: Start: 10-07-2016 End: 10-08-2016 Interrogation eval remote 90 d 1/2/procedures rn ld dfb Jose Ulrich MD Work Phone: Start: 10-07-2016 End: 11-07-2016 Pacer Clinic Jose Ulrich MD Work Phone: Start: 07-08-2016 End: 11-07-2016 Follow Up Appt 3 months Jose Ulrich MD Work Phone: Start: 07-08-2016 End: 07-08-2016 Interrogation eval remote 90 d 1/2/procedures rn ld dfb Jose Ulrich MD Work Phone: [...] End: 04-08-2016 Interrogation eval remote 90 d 1/2/procedures rn ld dfb Lisa Seo PA-C Work Phone: Start: 04-08-2016 End: 04-26-2016 Pacer Clinic Lisa Seo PA-C Work Phone: Start: 03-07-2016 End: 03-08-2016 Referral to financial sales consultant Jose Ulrich MD Work Phone: Start: 02-06-2016 End: 02-06-2016 *Hepatic Function Panel Jose Ulrich MD Work Phone: Start: 02-06-2016 End: 02-06-2016 Hemoglobin glycosylated a1c Jose Ulrich MD Work Phone: Start: 02-06-2016 End: 02-06-2016 Prostate specific Ag [Mass/volume] in Serum or Plasma Jose Ulrich MD Work Phone: Start: 02-06-2016 End: 02-06-2016 Lipid 1996 panel - Serum or Plasma Jose Ulrich MD Work Phone: Start: 01-02-2016 End: 03-22-2016 Follow Up Appt 3 months Jose Ulrich MD Work Phone: Start: 01-02-2016 End: 01-02-2016 Interrogation eval remote 90 d 1/2/procedures rn ld dfb Jose Ulrich MD Work Phone: [...] End: 09-19-2015 Interrogation eval remote 90 d 1/2/procedures rn ld dfjuan Ulrich MD Work Phone: Start: 09-11-2015 End: 03-22-2016 Pacer Clinic Jose Ulrich MD Work Phone: Start: 09-05-2015 End: 09-05-2015 *Hepatic Function Panel Jose Ulrich MD Work Phone: Start: 09-05-2015 End: 09-05-2015 JESIKA Ulrich MD Work Phone: Start: 09-05-2015 End: [...] Work Phone: Start: 08-25-2015 End: 08-26-2015 SNOMED-CT: [id number] Report of clinical encounter Jose Ulrich MD Work Phone: Start: 06-26-2015 End: 06-26-2015 Hemoglobin glycosylated a1c Jay Cedeño DO Work Phone: Start: 05-15-2015 End: 09-05-2015 *Hepatic Function Panel Jose Ulrich MD Work Phone: Start: 05-15-2015 End: 08-30-2015 JESIKA Ulrich MD Work Phone: Start: 05-15-2015 End: [...] Phone: Start: 05-15-2015 End: 05-16-2015 Referral to corporate treasurer Jose Ulrich MD Work Phone: Start: 04-03-2015 [...] Ecg routine ecg w/least 12 lds w/i&r Carmi Oliva Walton MD Start: 03-06-2015 End: 03-06-2015 [...] Treatment Date Care Activity Detail Author Start: 07-04-2031 Screening for malign ant neoplasm of colon [facility] Start: 08-02-2024 Diabetes mellitus screening Diabetes Screening [facility] Start: 07-30-2024 Diabetes mellitus screening Diabetes Screening [facility] Start: 07-02-2024 Diabetes mellitus screening Diabetes Screening [facility] Start: 06-25-2024 Diabetes mellitus screening Diabetes Screening [facility] Start: 04-08-2024 Pneumococcal Vaccine : 65+ Years (3 of 3 - PPSV23 or PCV20) Pneumococcal Vaccine: 65+ Years (3 of 3 - PPSV23 or PCV20) [facility] Start: 04-02-2024 Diabetes mellitus screening Diabetes Screening [facility] Start: 11-16-2023 Influenza vaccination Influenz a Vaccine (Season Ended) [facility] Start: 06-20-2023 COVID-19 Vaccine ( season) COVID-19 Vaccine ( season) [facility] Start: 11-15-2022 COVID-19 Vaccine ( season) COVID-19 Vaccine ( season) [facility] Start: 11-15-2022 Influenza vaccination Influenza Vacc ine (#1) [facility] Start: 04-22-2021 End: 04-23-2022 Ondansetron Injectable 4 mg IntraVenous Push Every 6 Hours PRN ; (ZOFRAN)DOSE = 4 mg IntraVenous Push Once Start: 22-Apr-2021 End: 22-Apr-2022 Ordered: 22-Apr-2021 Stephen Carias [facility] Start: 02-05-2021 Lipid panel Lipid Panel [facility] Start: 06-23-2017 End: 06-23-2017 Appointment Appointment [facility] Work Phone: Start: 04-09-2017 End: 04-09-2017 Appointment Appointment [facility] Work Phone: Start: 01-06-2017 End: 01-07-2017 Follow Up Appt 3 months Follow Up Appt 3 months [facility] Work Phone: Start: 01-06-2017 End: 01-07-2017 Pacer Clinic [facility] Work Phone: Start: 11-14-2016 End: 11-14-2016 JESIKA CANCHOLA [facility] Work Phone: Start: 11-14-2016 End: 11-14-2016 Follow Up Appt 6 months Follow Up Appt 6 months [facility] Work Phone: Start: 10-07-2016 End: 11-07-2016 Follow Up Appt 3 months Follow Up Appt 3 months [facility] Work Phone: Start: 10-07-2016 End: 11-07-2016 Pacer Clinic Pacer [facility] Work Phone: Start: 08-05-2016 End: 02-06-2016 *Hepatic Function Panel *Hepatic Function Panel [facility] Work Phone: Start: 08-05-2016 End: 02-06-2016 Lipid panel [AGGREGATE] *Lipid Profile CC PCP [facility] Work Phone: Start: 07-08-2016 End: 11-07-2016 Follow Up Appt 3 months Follow Up Appt 3 months [facility] Work Phone: Start: 07-08-2016 End: 11-07-2016 Pacer Clinic Pacer Clinic [facility] Work Phone: Start: 05-09-2016 End: 05-09-2016 JESIKA CANCHOLA [facility] Work Phone: Start: 05-09-2016 End: 05-09-2016 Follow Up Appt 6 months Follow Up Appt 6 months [facility] Work Phone: Start: 2016 Pneumococcal Vaccine : 65+ Years (2 - PCV) Pneumococcal Vaccine: 65+ Years (2 - PCV) [facility] Start: 2016 Pneumococcal Vaccine : 65+ Years (2 of 2 - PCV) Pneumococcal Vaccine: 65+ Years (2 of 2 - PCV) [facility] Start: 04-08-2016 End: 04-26-2016 Follow Up Appt 3 months Follow Up Appt 3 months [facility] Work Phone: Start: 04-08-2016 End: 04-26-2016 Pacer Clinic Pacer Clinic [facility] Work Phone: Start: 03-07-2016 End: 03-07-2016 Endocrinology Referral Endocrinology Referral Clarissa (ADRIANA) OSMAN Marti, [address], [address], [facility], [place], [address] [facility] Work Phone: Start: 02-06-2016 End: 02-06-2016 *Hepatic Function Panel *Hepatic Function Panel [facility] Work Phone: Start: 02-06-2016 End: 02-06-2016 Hemoglobin A1c/Hemoglobin.total mass fraction (Bld) HGBA1C [facility] Work Phone: Start: 02-06-2016 End: 02-06-2016 Lipid panel [AGGREGATE] *Lipid Profile CC PCP [facility] Work Phone: Start: 02-06-2016 End: 02-06-2016 PSA *PSA, Annual Screening [employer] [facility] Work Phone: Start: 01-02-2016 End: 03-22-2016 Follow Up Appt 3 months Follow Up Appt 3 months [facility] Work Phone: Start: 01-02-2016 End: 03-22-2016 Pacer Clinic Pacer Clinic [facility] Work Phone: Start: 11-01-2015 End: 11-01-2015 INR Coag RelTime (PPP) *PT/INR - Standing Order [facility] Work Phone: Start: 10-02-2015 End: 03-22-2016 Follow [...] [facility] Work Phone: Start: 09-05-2015 End: 09-05-2015 JESIKA CANCHOLA [facility] Work Phone: Start: 09-05-2015 End: 09-05-2015 Follow Up Appt 6 months Follow Up Appt 6 months [facility] Work Phone: Start: 09-05-2015 End: 09-05-2015 Lipid panel [AGGREGATE] *Lipid Profile CC PCP [facility] Work Phone: Start: 08-30-2015 End: 09-05-2015 Follow Up Appt 1 month Follow Up Appt 1 month [facility] Work Phone: Start: 08-30-2015 End: 09-05-2015 Pacer Clinic Pacer [facility] Work Phone: Start: 05-15-2015 End: 09-05-2015 *Hepatic Function Panel *Hepatic Function Panel [facility] Work Phone: Start: 05-15-2015 End: 05-15-2015 Cardiac Rehab [facility] [address] [place], [address] [facility] Work Phone: Start: 05-15-2015 End: 08-30-2015 JESIKA CANCHOLA [facility] Work Phone: Start: 05-15-2015 End: 05-15-2015 Ecg routine ecg w/least 12 lds w/i&r EKG (In office) [facility] Work Phone: Start: 05-15-2015 End: 05-15-2015 Echocardiography Echocardiogram (complete) [facility] Work Phone: Start: 05-15-2015 End: 08-30-2015 Follow Up Appt 3 months Follow Up Appt 3 months [facility] Work Phone: Start: 05-15-2015 End: 09-05-2015 Lipid panel [AGGREGATE] *Lipid Profile CC PCP [facility] Work Phone: Start: 04-03-2015 End: 08-30-2015 *Hepatic Function Panel *Hepatic Function Panel [facility] Work Phone: Start: 04-03-2015 End: 08-30-2015 Lipid panel [AGGREGATE] *Lipid Profile CC PCP [facility] Work Phone: Start: 03-14-2015 End: 03-14-2015 *BMP *BMP [facility] Work Phone: Start: 03-14-2015 End: 03-14-2015 CBC W Auto Differential panel - Blood *CBC without Diff [facility] Work Phone: Start: 03-14-2015 End: 03-22-2015 Ecg routine ecg w/least 12 lds w/i&r EKG (In office) [facility] Work Phone: Start: 03-06-2015 End: 03-06-2015 *Hepatic Function Panel *Hepatic Function Panel [facility] Work Phone: Start: 03-06-2015 End: 03-06-2015 DJN KARINN [facility] Work Phone: Start: 03-06-2015 End: 03-06-2015 Follow Up Appt 6 months Follow Up Appt 6 months [facility] Work Phone: Start: 03-06-2015 End: 04-27-2015 INR Coag RelTime (PPP) *PT/INR - Standing Order [facility] Work Phone: Start: 03-06-2015 End: 03-06-2015 Left Heart Cath Left Heart Cath [facility] Work Phone: Start: 03-06-2015 End: 03-06-2015 Lipid panel [AGGREGATE] *Lipid Profile CC PCP [facility] Work Phone: Start: 03-01-2015 End: 03-03-2015 INR Coag RelTime (PPP) [facility] Work Phone: Start: 02-20-2015 End: 02-20-2015 [email or web address] [facility] Work Phone: Start: 2011 RSV patient s and/or patients aged 60+ years (1 - 1-dose 60+ series) RSV patients and/or patients aged 60+ years (1 - 1-dose 60+ series) [facility] Start: 2001 Zoster Vaccines (1 of 2) Zoste r Vaccines (1 of 2) [facility] Start: 1973 DTaP/Tdap/Td Vaccine s (1 - Tdap) DTaP/Tdap/Td Vaccines (1 - Tdap) [facility] Start: 1969 Hepatitis C screening Hepatitis C Sc [facility] Start: 1951 COVID-19 Vaccine (#1) COVID-19 Vacci ne (#1) [facility] Start: 1950 Lipid panel Lipid Panel [facility] Start: 1950 Medicare Annual Well ness Visit Medicare Annual Wellness Visit (AWV) [facility] Start: 1950 Screening for malign ant neoplasm of colon [facility] End: 07-31-2023 ECG 12 lead [facility] Area Work Phone: Comment on above: Once for 1 Occurrenc es starting 07/31/2023 until 07/31/2023 End: 08-03-2023 ECG 12 lead [facility] Service Area Work Phone: Comment on above: Once for 1 Occurrenc es starting 08/03/2023 until 08/03/2023 End: 04-02-2023 Extra Urine [place] Tube [facility] Work Phone: Comment on above: Once for 1 Occurrenc es starting 04/02/2023 until 04/02/2023 End: 07-31-2023 Extra Urine [place] Tube [facility] Work Phone: Comment on above: Once for 1 Occurrenc es starting 07/31/2023 until 07/31/2023 End: 08-03-2023 Extra Urine [place] Tube [facility] Work Phone: Comment on above: Once for 1 Occurrenc es starting 08/03/2023 until 08/03/2023 End: 07-03-2023 Glucose [Mass/volume] in Serum or Plasma POCT fingerstick glucose manually resulted Point of Care Testing Routine Once (Lab) for 1 Occurrences starting 07/03/2023 until 07/03/2023 [facility] Service Area Work Phone: Comment on above: Once (Lab) for 1 Occ urrences starting 07/03/2023 until 07/03/2023 Glucose [Mass/volume ] in Serum or Plasma POCT Glucose Point of Care Testing - Docked Device Routine As needed (Lab) until discontinued starting 07/31/2023 [facility] Work Phone: Comment on above: As needed (Lab) unti l discontinued starting 07/31/2023 Patient Education HYPERLIPIDEMIA , CHOLESTEROL%20AND%20YOU R%20HEALTH [facility] Work Phone: End: 04-02-2023 Urinalysis complete W Reflex Culture panel - Urine [facility] Service Area Work Phone: Comment on above: Once (Lab) for 1 Occ urrences starting 04/02/2023 until 04/02/2023 End: 07-31-2023 Urinalysis complete W Reflex Culture panel - Urine [facility] Work Phone: Comment on above: Once (Lab) for 1 Occ urrences starting 07/31/2023 until 07/31/2023 End: 08-03-2023 Urinalysis complete W Reflex Culture panel - [facility] Company Work Phone: Comment on above: Once (Lab) for 1 Occ urrences starting 08/03/2023 until 08/03/2023 Immunizations Immunization Date Immunization Notes Care Provider Rohini lomeli 12-27-2014 influenza virus vaccine, unspecified formulation Mendez Zacarias DO Work Phone: [facility] Work Phone: Payers Date Payer Category Payer Medicare MEDICARE MEDICAR E PART A AND B [id number] 2016-Present [address] [place] [address] [id number] 2016 Medicare [id number] 2016 Unknown 2016 Unknown [id number] 1950 Unknown [id number] 3 1950 Unknown [id number] 3 1950 Unknown [id number] 3 1950 Unknown [id number] 3 1950 Unknown [id number] 3 1950 Unknown [id number] 3 1950 Unknown [id number] 3 Social History Date Type Detail Facility [facility] Tobacco smoking consumption unknown [facility] Start: 04-02-2023 Tobacco smoking status NHIS Never smoked tobacco [facility] Work Phone: Start: 04-02-2023 Tobacco use and exposure Smokeless tobacco non-user [facility] Work Phone: Start: 04-02-2023 End: 08-03-2023 History of Social function [facility] Work Phone: Start: 04-02-2023 End: 08-03-2023 Tobacco use panel [facility] Work Phone: Start: 1950 [facility]igned [facility] Start: 03-23-2023 End: 08-03-2023 Exposure to SARS-CoV-2 (event) Not sure [facility] Clinical Notes 06-26-2023 to 08-03-2023 Mendez Zacarias, DO - 08/03/2023 6:38 AM Charli Mesa, DO - 08/03/2023 6:38 AM EDTSscott Zacarias, DO - 08/03/2023 6:38 AM Charli Mesa, DO - 08/03/2023 6:38 AM EDT Note Date & Type Note Facility 08-03-2023 Emergency department Note HPI No chief complaint on file. Patient presents to the emergency department secondary to mental status change at home. Patient did paramedics provide history. The patient states that he is not exactly sure what happened at home this morning. He states that he got up at about 4 AM, which is typical for him, and now I am here . The paramedics state that the patient apparently became combative with his this morning and she called the paramedics out of concern for his blood sugar being low however his blood sugar was 96. Patient continued to be combative his blood sugar was rechecked and noted to be in the 60s and he was given glucagon and now presents to the emergency room. The patient states that he did not eat breakfast nor did he take his morning insulin this morning. 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 Social History Tobacco Use Smoking status: Never Smokeless tobacco: Never Substance Use Topics Alcohol use: Not on file Drug use: Not on file Physical Exam ED Triage Vitals Temp Pulse Resp BP -- -- -- -- SpO2 Temp src Heart Rate Source Patient Position -- -- -- -- BP Location FiO2 (%) -- -- Physical Exam Vitals and nursing note reviewed. Constitutional: General: He is not in acute distress. Appearance: Normal appearance. He is obese. He is not ill-appearing, toxic-appearing or diaphoretic. HENT: Head: Normocephalic and atraumatic. Nose: Nose normal. No rhinorrhea. Neck: Comments: Trachea is midline Cardiovascular: Rate and Rhythm: Normal rate and regular rhythm. Heart sounds: No murmur heard. Pulmonary: Effort: Pulmonary effort is normal. Breath sounds: Normal breath sounds. No wheezing. Abdominal: General: Abdomen is flat. Bowel sounds are normal. There is no distension. Palpations: Abdomen is soft. Tenderness: There is no abdominal tenderness. Musculoskeletal: General: Normal range of motion. Cervical back: Normal range of motion. Skin: General: Skin is warm and dry. Findings: No rash. Neurological: General: No focal deficit present. Mental Status: He is alert and oriented to person, place, and time. Mental status is at baseline. Psychiatric: Mood and Affect: Mood normal. Behavior: Behavior normal. Thought Content: Thought content normal. Judgment: Judgment normal. ED Course & MDM Medical Decision Making Laboratory and radiographic panels are pending. Patient's blood sugar was checked here and is noted to be in the 80s. Patient will be endorsed to the oncoming provider. Please see their note for interpretation of the pending studies and final disposition Procedure Procedures Mendez Zacarias DO 08/03/23 0648 Medical Decision Making Workup for patient's change in mental status was unremarkable I discussed with the patient he indicates that early in the morning he noted his blood sugar was over 300 and he treated himself with some extra Novolin and and believes that he overdid it indicates that she was able to give him a shot of glucagon because he was aggressive towards her and had to call 911 I told the patient's that the only way she can treat hypoglycemia is to give him something orally and/or to treat with glucagon if she can approach him otherwise she would have to call 911. Patient states that he has a follow-up with his primary care doctor later this week. He was discharged home with his in stable improved condition and encouraged him to eat when she gets home. Amount and/or Complexity of Data Reviewed ECG/medicine tests: independent interpretation performed. Details: EKG was interpreted by myself at 7:16 AM reveals sinus rhythm with first-degree AV block and intraventricular delay pattern. The heart rate 76 bpm. The SD interval is 220 ms. The QRS durations 122 ms. The QTc is 474 ms. [place] is 71 degrees. Emergency Medicine Transition of Care Note. I received Heavenly Prather in signout from Dr. Zacarias. Please see the previous ED provider note for all HPI, PE and MDM up to the time of signout at 0700. This is in addition to the primary record. In brief Heavenly Prather is an 73 y.o. male presenting for Chief Complaint Patient presents with Hypoglycemia Pt here via EMS from home, pt was brought in due to low blood sugar at home. EMS was called by due to pt being combative with reportedly a BGL of 98, which dropped to 62 when EMS got to the house and pt became unresponsive. They administered D10 and BGL came up to 113. On arrival BGL is 84. Pt is A&O but does not recall events at the house. At the time of signout we were awaiting: Patient was transferred to the emergency permit from home due to the patient being combative towards his . The patient was noted to have a sugar of 62. Dr. Zacarias was concerned that there may be another cause that led to the patient being combative and diagnostic workup was initiated with lab work and CT scan imaging the brain. Final diagnoses: [E16.2] Hypoglycemia Procedure Procedures DO Kwan Chao DO 08/03/23 9365 documented in this encounter [facility] Work Phone: 08-03-2023 Physician Emergency department Note HPI No chief complaint on file. Patient presents to the emergency department secondary to mental status change at home. Patient did paramedics provide history. The patient states that he is not exactly sure what happened at home this morning. He states that he got up at about 4 AM, which is typical for him, and now I am here . The paramedics state that the patient apparently became combative with his this morning and she called the paramedics out of concern for his blood sugar being low however his blood sugar was 96. Patient continued to be combative his blood sugar was rechecked and noted to be in the 60s and he was given glucagon and now presents to the emergency room. The patient states that he did not eat breakfast nor did he take his morning insulin this morning. 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 Social History Tobacco Use Smoking status: Never Smokeless tobacco: Never Substance Use Topics Alcohol use: Not on file Drug use: Not on file Physical Exam ED Triage Vitals Temp Pulse Resp BP -- -- -- -- SpO2 Temp src Heart Rate Source Patient Position -- -- -- -- BP Location FiO2 (%) -- -- Physical Exam Vitals and nursing note reviewed. Constitutional: General: He is not in acute distress. Appearance: Normal appearance. He is obese. He is not ill-appearing, toxic-appearing or diaphoretic. HENT: Head: Normocephalic and atraumatic. Nose: Nose normal. No rhinorrhea. Neck: Comments: Trachea is midline Cardiovascular: Rate and Rhythm: Normal rate and regular rhythm. Heart sounds: No murmur heard. Pulmonary: Effort: Pulmonary effort is normal. Breath sounds: Normal breath sounds. No wheezing. Abdominal: General: Abdomen is flat. Bowel sounds are normal. There is no distension. Palpations: Abdomen is soft. Tenderness: There is no abdominal tenderness. Musculoskeletal: General: Normal range of motion. Cervical back: Normal range of motion. Skin: General: Skin is warm and dry. Findings: No rash. Neurological: General: No focal deficit present. Mental Status: He is alert and oriented to person, place, and time. Mental status is at baseline. Psychiatric: Mood and Affect: Mood normal. Behavior: Behavior normal. Thought Content: Thought content normal. Judgment: Judgment normal. ED Course & MDM Medical Decision Making Laboratory and radiographic panels are pending. Patient's blood sugar was checked here and is noted to be in the 80s. Patient will be endorsed to the oncoming provider. Please see their note for interpretation of the pending studies and final disposition Procedure Procedures Mendez Zacarias DO 08/03/23 0648 [facility] Work Phone: 08-03-2023 Physician Emergency department Note Medical Decision Making Workup for patient's change in mental status was unremarkable I discussed with the patient he indicates that early in the morning he noted his blood sugar was over 300 and he treated himself with some extra Novolin and and believes that he overdid it indicates that she was able to give him a shot of glucagon because he was aggressive towards her and had to call 911 I told the patient's that the only way she can treat hypoglycemia is to give him something orally and/or to treat with glucagon if she can approach him otherwise she would have to call 911. Patient states that he has a follow-up with his primary care doctor later this week. He was discharged home with his in stable improved condition and encouraged him to eat when she gets home. Amount and/or Complexity of Data Reviewed ECG/medicine tests: independent interpretation performed. Details: EKG was interpreted by myself at 7:16 AM reveals sinus rhythm with first-degree AV block and intraventricular delay pattern. The heart rate 76 bpm. The SD interval is 220 ms. The QRS durations 122 ms. The QTc is 474 ms. [place] is 71 degrees. Emergency Medicine Transition of Care Note. I received Heavenly Prather in signout from Dr. Zacarias. Please see the previous ED provider note for all HPI, PE and MDM up to the time of signout at 0700. This is in addition to the primary record. In brief Heavenly Prather is an 73 y.o. male presenting for Chief Complaint Patient presents with Hypoglycemia Pt here via EMS from home, pt was brought in due to low blood sugar at home. EMS was called by due to pt being combative with reportedly a BGL of 98, which dropped to 62 when EMS got to the house and pt became unresponsive. They administered D10 and BGL came up to 113. On arrival BGL is 84. Pt is A&O but does not recall events at the house. At the time of signout we were awaiting: Patient was transferred to the emergency permit from home due to the patient being combative towards his . The patient was noted to have a sugar of 62. Dr. Zacarias was concerned that there may be another cause that led to the patient being combative and diagnostic workup was initiated with lab work and CT scan imaging the brain. Final diagnoses: [E16.2] Hypoglycemia Procedure Procedures DO Kwan Chao DO 08/03/23 0959 [facility] Work Phone: 07-31-2023 Emergency department Note Emergency Medicine Transition of Care Note. I received Heavenly Prather in signout from Dr. Mesa. Please see the previous ED provider note for all HPI, PE and MDM up to the time of signout at 7 PM. This is in addition to the primary record. In brief Heavenly Prather is an 73 y.o. male presenting for Chief Complaint Patient presents with Hypoglycemia Patient brought in by A[facility] from home for hypoglycemia, patient was mowing his yard when family found him unresponsive, per EMS report initial glucose was 51, d10 started via IV. Patient alert and oriented on arrival. At the time of signout we were awaiting: Repeat blood sugar and final disposition Diagnoses as of 07/31/231934 Hypoglycemia Medical Decision Making 73-year-old male insulin-dependent type 2 diabetic checked out to me pending repeat [id number] blood glucose and disposition. Repeat blood sugar was 176. Patient is awake and alert mentating normally. Blood sugar is stable. Patient can be discharged home. He is comfortable with this plan. Final diagnoses: [E16.2] Hypoglycemia Procedure Procedures MD Dana Marie MD 07/31/231934 documented in this encounter [facility] Work Phone: 07-31-2023 Physician Emergency department Note Emergency Medicine Transition of Care Note. I received Heavenly Prather in signout from Dr. Mesa. Please see the previous ED provider note for all HPI, PE and MDM up to the time of signout at 7 PM. This is in addition to the primary record. In brief Heavenly Prather is an 73 y.o. male presenting for Chief Complaint Patient presents with Hypoglycemia Patient brought in by AFD from home for hypoglycemia, patient was mowing his yard when family found him unresponsive, per EMS report initial glucose was 51, d10 started via IV. Patient alert and oriented on arrival. At the time of signout we were awaiting: Repeat blood sugar and final disposition Diagnoses as of 07/31/231934 Hypoglycemia Medical Decision Making 73-year-old male insulin-dependent type 2 diabetic checked out to me pending repeat [id number] blood glucose and disposition. Repeat blood sugar was 176. Patient is awake and alert mentating normally. Blood sugar is stable. Patient can be discharged home. He is comfortable with this plan. Final diagnoses: [E16.2] Hypoglycemia Procedure Procedures MD Dana Marie MD 07/31/231934 [facility] Work Phone: 07-03-2023 Emergency department Note Emergency Medicine Transition of Care Note. I received Heavenly Prather in signout from Dr. Hahn. Please see the previous ED provider note for all HPI, PE and MDM up to the time of signout at 2200. This is in addition to the primary record. The patient has been fed and his most recent blood sugar was 133. Patient has no complaints will be discharged. In brief Heavenly Prather is an 73 y.o. male presenting for Chief Complaint Patient presents with Hypoglycemia Pt reports taking normal dose of insulin and didn't eat enough dinner. Bg 101 on arrival At the time of signout we were awaiting: labs. Diagnoses as of 07/03/232337 Hypoglycemia Medical Decision Making 1 adjust insulin per caloric intake. 2 follow-up with [facility] medical doctor as needed if symptoms worsen return to ED. Final diagnoses: [E16.2] Hypoglycemia Procedure Procedures DO Jay Ferrer DO 07/03/232338 documented in this encounter [facility] Work Phone: 07-03-2023 Physician Emergency department Note Emergency Medicine Transition of Care Note. I received Heavenly Prather in signout from Dr. Hahn. Please see the previous ED provider note for all HPI, PE and MDM up to the time of signout at 2200. This is in addition to the primary record. The patient has been fed and his most recent blood sugar was 133. Patient has no complaints will be discharged. In brief Heavenly Prather is an 73 y.o. male presenting for Chief Complaint Patient presents with Hypoglycemia Pt reports taking normal dose of insulin and didn't eat enough dinner. Bg 101 on arrival At the time of signout we were awaiting: labs. Diagnoses as of 07/03/232337 Hypoglycemia Medical Decision Making 1 adjust insulin per caloric intake. 2 follow-up with [facility] medical doctor as needed if symptoms worsen return to ED. Final diagnoses: [E16.2] Hypoglycemia Procedure Procedures DO Jay Ferrer DO 07/03/232338 [facility] Work Phone: 06-26-2023 Emergency department Note HPI Chief Complaint Patient presents with Hypoglycemia Secondary to diabetic hyperglycemia. The patient at the time of arrival somewhat of a poor historian in regards to the events of this evening. He states that he went to bed feeling well at approximately 10 PM and then I had a lot of visitors as he is referring to the paramedics. The patient's blood sugar was noted to be low and according to the paramedics he was combative at times. The patient has a history of similar episodes. He states that he takes Humulin R and Humulin N but does not take any oral long-acting hypoglycemics. He states that the last similar episode that happened was about a month ago. 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 Social History Tobacco Use Smoking status: Never Smokeless tobacco: Never Substance Use Topics Alcohol use: Not on file Drug use: Not on file Physical Exam ED Triage Vitals [06/26/23 0137] Temperature Heart Rate Respirations BP 36.6 C (97.8 F) 84 16 156/83 Pulse Ox Temp src Heart Rate Source Patient Position (!) 91 % -- -- -- BP Location FiO2 (%) -- -- Physical Exam Vitals and nursing note reviewed. Constitutional: General: He is not in acute distress. Appearance: Normal appearance. He is normal weight. He is not ill-appearing, toxic-appearing or diaphoretic. HENT: Head: Normocephalic and atraumatic. Nose: Nose normal. No rhinorrhea. Neck: Comments: Trachea is midline Cardiovascular: Rate and Rhythm: Normal rate and regular rhythm. Heart sounds: No murmur heard. Pulmonary: Effort: Pulmonary effort is normal. Breath sounds: Normal breath sounds. No wheezing. Abdominal: General: Abdomen is flat. Bowel sounds are normal. There is no distension. Palpations: Abdomen is soft. Tenderness: There is no abdominal tenderness. Musculoskeletal: General: Normal range of motion. Cervical back: Normal range of motion. Skin: General: Skin is warm and dry. Findings: No rash. Neurological: General: No focal deficit present. Mental Status: He is alert and oriented to person, place, and time. Mental status is at baseline. Cranial Nerves: No cranial nerve deficit. Psychiatric: Mood and Affect: Mood normal. Behavior: Behavior normal. Thought Content: Thought content normal. Judgment: Judgment normal. ED Course & MDM Diagnoses as of 06/26/23 0356 Hypoglycemia Medical Decision Making Shortly after arrival the patient was given a full meal tray including snacks, orange juice, and a turkey sandwich. Patient's arrived later in the patient's encounter and she states that it was just shortly before they were going to go to bed that the patient became violent which is typical when his blood sugar drops. She could not manage his behavior therefore the paramedics were called and he was noted to be hypoglycemic. Patient was observed here in the ER for several hours and he maintained his blood sugar. He ate a full meal tray and given that he is not on any long-acting oral lesions I feel he is appropriate for discharge. Given that this is now the third time in 1 month that the patient has dropped his blood sugar to the point that he is needed medical care I strongly suggested that he follow-up with his private physician so that his diabetic regimen could be adjusted. Instructed to follow-up as discussed and return if worse. Procedure Procedures Mendez Zacarias DO 06/26/23 0357 documented in this encounter [facility] Work Phone: 06-26-2023 Physician Emergency department Note HPI Chief Complaint Patient presents with Hypoglycemia Secondary to diabetic hyperglycemia. The patient at the time of arrival somewhat of a poor historian in regards to the events of this evening. He states that he went to bed feeling well at approximately 10 PM and then I had a lot of visitors as he is referring to the paramedics. The patient's blood sugar was noted to be low and according to the paramedics he was combative at times. The patient has a history of similar episodes. He states that he takes Humulin R and Humulin N but does not take any oral long-acting hypoglycemics. He states that the last similar episode that happened was about a month ago. 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 Social History Tobacco Use Smoking status: Never Smokeless tobacco: Never Substance Use Topics Alcohol use: Not on file Drug use: Not on file Physical Exam ED Triage Vitals [06/26/23 0137] Temperature Heart Rate Respirations BP 36.6 C (97.8 F) 84 16 156/83 Pulse Ox Temp src Heart Rate Source Patient Position (!) 91 % -- -- -- BP Location FiO2 (%) -- -- Physical Exam Vitals and nursing note reviewed. Constitutional: General: He is not in acute distress. Appearance: Normal appearance. He is normal weight. He is not ill-appearing, toxic-appearing or diaphoretic. HENT: Head: Normocephalic and atraumatic. Nose: Nose normal. No rhinorrhea. Neck: Comments: Trachea is midline Cardiovascular: Rate and Rhythm: Normal rate and regular rhythm. Heart sounds: No murmur heard. Pulmonary: Effort: Pulmonary effort is normal. Breath sounds: Normal breath sounds. No wheezing. Abdominal: General: Abdomen is flat. Bowel sounds are normal. There is no distension. Palpations: Abdomen is soft. Tenderness: There is no abdominal tenderness. Musculoskeletal: General: Normal range of motion. Cervical back: Normal range of motion. Skin: General: Skin is warm and dry. Findings: No rash. Neurological: General: No focal deficit present. Mental Status: He is alert and oriented to person, place, and time. Mental status is at baseline. Cranial Nerves: No cranial nerve deficit. Psychiatric: Mood and Affect: Mood normal. Behavior: Behavior normal. Thought Content: Thought content normal. Judgment: Judgment normal. ED Course & MDM Diagnoses as of 06/26/23 0356 Hypoglycemia Medical Decision Making Shortly after arrival the patient was given a full meal tray including snacks, orange juice, and a turkey sandwich. Patient's arrived later in the patient's encounter and she states that it was just shortly before they were going to go to bed that the patient became violent which is typical when his blood sugar drops. She could not manage his behavior therefore the paramedics were called and he was noted to be hypoglycemic. Patient was observed here in the ER for several hours and he maintained his blood sugar. He ate a full meal tray and given that he is not on any long-acting oral lesions I feel he is appropriate for discharge. Given that this is now the third time in 1 month that the patient has dropped his blood sugar to the point that he is needed medical care I strongly suggested that he follow-up with his private physician so that his diabetic regimen could be adjusted. Instructed to follow-up as discussed and return if worse. Procedure Procedures Mendez Zacarias DO 06/26/23 0357 [facility] Work Phone: Evaluation note Diagnosis Hypoglycemia- Primary Hypoglycemia, unspecified documented in this encounter [facility] Work Phone: Evaluation note* Diagnosis Hypoglycemia- Primary Hypoglycemia, unspecified documented in this encounter [facility] Work Phone: Evaluation note* Diagnosis Hypoglycemia- Primary Hypoglycemia, unspecified documented in this encounter [facility] Work Phone: Evaluation note* Diagnosis Hypoglycemia- Primary Hypoglycemia, unspecified documented in this encounter [facility] Work Phone: Evaluation note* Diagnosis Hypoglycemia- Primary Hypoglycemia, unspecified documented in this encounter [facility] Work Phone: Hospital Discharge instructions* Attachments The following attachments cannot be sent through Care Everywhere. * Dealing with Low Blood Sugar from the Drugs You Take ([place]) [facility]* Attachments The following attachments cannot be sent through Care Everywhere. * Low blood sugar in people with diabetes ([place]) [facility] [place] [facility] Discharge instructions* Attachments The following attachments cannot be sent through Care Everywhere. * Low Blood Sugar, Adult ED ([place]) [facility] [place] Work Phone: Reason for referral (narrative)* Consultation (Routine) - Authorized Specialty Diagnoses / Procedures Referred By Ghada [email or web address] Referred To Contact Family Medicine / Primary Care Kwan Mesa DO [address] [place] [address] Referral ID Status Reason Start Date Expiration Date Visits Requested Visits Authorized [id number] Authorized Specialty Services Required 08/03/2023 08/02/2024 1 1 [facility] Work Phone: Summary Purpose Family History No [...] ized section and content) DATE CREATED AUTHOR 09/10/2017 [facility] DATE CREATED AUTHOR AUTHOR'S ORGANIZ ATION 09/10/2017 [facility] DATE CREATED AUTHOR AUTHOR'S ORGANIZ ATION 04/26/2021 [facility] DATE CREATED AUTHOR AUTHOR'S ORGANIZ ATION 08/11/2023 [facility] DATE CREATED AUTHOR AUTHOR'S ORGANIZ ATION 10/01/2023 [facility] <item> Privacy Markings (unrecogniz ed section and content) Section Author: Destiny Espinosa PROHIBITION ON REDISCLOSURE OF CONFIDENTIAL INFORMATION This notice accompanies a disclosure of information concerning a client made to you with the consent of such client. Reason for Visit (unrecogniz ed section and content) Reason Comments Hypoglycemia Patient to ED refere nce confusion. delivered patient to ED entrance in car. ED staff persuaded patient to get out of car and into wheelchair. Patient a little combative and was taken to room #1. RN persuaded patient to allow blood sugar with findings of 33 mg/dl. Patients states he was fine up to about a 1/2 hr to 45 minutes early and started acting different and had to be helped out of drivers seat and into passenger seat. Reason Comments Hypoglycemia Patient states he we nt to bed around 2200 and woke up an hour ago to the squad at his house. Patient said the patient woke up shortly after they went to bed acting like a bear and she called the squad and per squad pt BS was 56. Reason Comments Hypoglycemia Pt reports taking no rmal dose of insulin and didn't eat enough dinner. Bg 101 on arrival Reason Comments Hypoglycemia Patient brought in b y AFD from home for hypoglycemia, patient was mowing his yard when family found him unresponsive, per EMS report initial glucose was 51, d10 started via IV. Patient alert and oriented on arrival. Reason Comments Hypoglycemia Pt here via EMS from home, pt was brought in due to low blood sugar at home. EMS was called by due to pt being combative with reportedly a BGL of 98, which dropped to 62 when EMS got to the house and pt became unresponsive. They administered D10 and BGL came up to 113. On arrival BGL is 84. Pt is A&O but does not recall events at the house. Scheduled Active and Recently Administ ered Medications (unrecognized section and content) Medication Order 03/31/2023 04/01/2023 04/02/2023 dextrose 50 % injection 25 mL (COMPLETED) 25 mL, intravenous, Once, On Fri04/02/23 at 1610, For 1 dose 1610 (Given - Provid er: Mariangel Lepe RN) glucagon (Glucagen) injection 1 mg (COMPLETED) 1 mg, intramuscular, Once, On Fri04/02/23 at 1610, For 1 dose, Administer IV doses over at least 1 minute 1609 (Given - Provid er: Mariangel Lepe RN) PRN Medication Order 07/29/2023 07/30/2023 07/31/2023 dextrose 50 % injection 12.5 g 12.5 g, intravenous, Every 15 min PRN, For blood glucose 41 to 70 mg/dL, Starting on Gena 07/31/23 at 1734, May repeat until blood glucose level reaches 100 mg/dL or greater. Push 2 - 3 mL/minute if patient has secure IV access. 1743 (Given - Provid er: Sharlene Garcia RN) dextrose 50 % injection 25 g 25 g, intravenous, Every 15 min PRN, For blood glucose less than or equal to 40 mg/dL, Starting on Gena 07/31/23 at 1734, May repeat until blood glucose level reaches 100 mg/dL or greater. Push 2 - 3 mL/minute if patient has secure IV access. 1741 (Due) glucagon (Glucagen) injection 1 mg 1 mg, intramuscular, Every 15 min PRN, low blood sugar - see comments, For blood glucose less than or equal to 40 mg/dL and no IV access, Starting on Gena 07/31/23 at 1734, Give until blood glucose is 100 mg/dL or greater. If patient DOES NOT HAVE secure IV access & patient is unconscious, NPO or is unable to eat or drink. glucagon (Glucagen) injection 1 mg 1 mg, intramuscular, Every 15 min PRN, low blood sugar - see comments, For blood glucose 41 to 70 mg/dL and no IV access, Starting on Gena 07/31/23 at 1734, Give until blood glucose is 100 mg/dL or greater. If patient DOES NOT HAVE secure IV access & patient is unconscious, NPO or is unable to eat or drink. Care Teams (unrecognized sec tion and content) Squadron Worker Relationship Specialty Start Date End Date Jay Cedeño DO PCP - General 04/17/21 Squadron Worker Relationship Specialty Start Date End Date Jay Cedeño DO [address] [place] [address] PCP - General Family Medicine 06/26/23 Squadron Worker Relationship Specialty Start Date End Date Jya Cedeño DO [address] [place] [address] PCP - General Family Medicine 06/26/23 Squadron Worker Relationship Specialty Start Date End Date Jay Cedeño DO [address] [place] [address] PCP - General Family Medicine 06/26/23 Squadron Worker Relationship Specialty Start Date End Date Jay Cedeño DO [address] [place] [address] PCP - General Family Medicine 06/26/23 Squadron Worker Relationship Specialty Start Date End Date Jay Cedeño DO [address] [place] [address] PCP - General Family Medicine 06/26/23 Squadron Worker Relationship Specialty Start Date End Date Jay Cedeño DO [address] [place] [address] PCP - General Family Medicine 06/26/23 FOR RECORDS PERTAINING TO PATIENTS WHO ARE [...] BE BASED ON THE PRIMARY CLINICAL RECORDS. [facility] provides no warranty or guarantee of the accuracy or completeness of information in this document.
[2024-01-13 07:15] LABS: CREATININE FINGERSTICK < 1.0 mg/dL (0.70-1.30); EGFR FINGERSTICK > 60.0000 mL/min (>60)
== END | disposition home or self-care (01) ==
LOC: CT 06:49
PROVIDERS: PCP Family Medicine; Referring Provider Family Medicine; Visit Provider Family Medicine
DX: R91.1 Solitary pulmonary nodule (principal)
CPT/HCPCS: 71260; Q9967

== ENCOUNTER → 2024-06-29 | Outpatient (CLI) | payer BC, MEDICARE, SELFPAY ==
[2024-06-29 12:41] LABS: Absolute Lymphocyte Count 1.83 X10^3/uL (0.83-4.51); Basophil# 0.03 X10^3/uL; Basophil% 0.3 % (0-1); Eosinophil# 0.14 X10^3/uL; Eosinophils% 1.6 % (0-5); Hematocrit 46.5 % (40-54); Hemoglobin 15.4 g/dL (13.0-16.5); Lymphocyte # 1.83 X10^3/ul (0.83-4.51); Lymphocyte % 21.2 % (19-41); Mean Corp Hgb Conc 33.1 g/dL (32-36); Mean Corpuscular Hgb 29.4 pg (27.0-32.0); Mean Corpuscular Volume 88.9 fL (80-94); Mean Platelet Vol. 9.4 fl (6.2-12.0); Monocyte# 0.57 X10^3/uL; Monocyte% 6.6 % (0-10); NRBC Flagged by Analyzer 0 % (0-5); Neutrophil % 69.7 % (47-70); Platelet Count 266 K/mm3 (150-450); RBC Distribution Width CV 13.3 % (11.6-14.6); RBC Distribution Width SD 43.1 fl (35.1-43.9); Red Blood Count 5.23 M/mm3 (4.6-6.2); White Blood Count 8.6 K/mm3 (4.4-11.0)
[2024-06-29 12:53] LABS: Microalbumin,Random Urine < 12.0 mg/L (NO RANGE EST.); Microalbumin:Creatinine Ratio UNABLE TO CALCULATE mg/g CRE
[2024-06-29 12:57] LABS: Hemoglobin A1c 8.2 % (<=5.6)
[2024-06-29 13:18] LABS: AST(SGOT) 29 U/L (<=37); Alanine Aminotransfer ALT/SGPT 28 U/L (<=46); Albumin, Serum 4.3 g/dL (3.4-4.8); Alkaline Phosphatase 116 U/L (40-129); Bilirubin, Direct 0.38 mg/dL (0.00-0.30); Cholesterol 121 mg/dL (<=200); Globulin 3.3 g/dL (2.2-4.2); High Density Lipoprotein 53 mg/dL; Low Density Lipoprotein Calc. 60 mg/dL; Protein, Total 7.6 g/dL (5.9-8.4); Triglycerides 43 mg/dL; Very Low Density Lipoprotein 9 mg/dL (5-40)
[2024-06-29 13:19] LABS: PSA,Total - Annual Screen 0.54 ng/mL (0.02-4.00)
== END | disposition home or self-care (01) ==
LOC: BFHLAB 09:43
PROVIDERS: PCP Family Medicine; Visit Provider Family Medicine
DX: Z12.5 Encounter for screening for malignant neoplasm of prostate (principal); E11.59 Type 2 diabetes mellitus with other circulatory complications; I25.10 Atherosclerotic heart disease of native coronary artery without angina pectoris; I10 Essential (primary) hypertension
CPT/HCPCS: 36415; 80061; 80076; 82043; 82570; 83036; 84153; 85025; G0103

== ENCOUNTER 2024-08-03 07:21 | Day surgery (SDC) | payer MEDICARE, SELFPAY ==
--- NOTE | 2024-08-02 13:07 | PAT.ANESEVAL ---
Pre-Assessment Diagnosis/Proposed Procedure Planned Operative Procedure(s): COLONOSCOPY Anesthesia History Anesthesia History - radioisotope technologist: Anesthesia History - radioisotope technologist Hx Hospitalization No 08/02/24 11:25 Any Problems With Anesthesia No 08/02/24 11:25 Cholinesterase deficiency No 08/02/24 11:25 You/Your Family Experience No 08/02/24 11:25 fever (hyperthermia) with Relationship Recent Exposure to Contagious No 07/03/21 09:45 Disease Does patient have nerve No 08/02/24 11:25 stimulator Patient instructed to have device shut off --Does patient have Pacemaker or ICD? When Was Last Pacemaker Check QUESTION #4 FULL TEXT: You/Your Family Experience fever (hyperthermia) with Anesthesia Last Oral Intake Last Oral intake: Last Oral Intake NPO since Meds taken in AM with sips of water? Meds patient instructed to take am of surgery PONV PONV - radioisotope technologist: PONV - radioisotope technologist Female No 08/02/24 11:25 HX of Motion Sickness No 08/02/24 11:25 HX of N/V After Surgery No 08/02/24 11:25 Non-Smoker Yes 08/02/24 11:25 Duration of Surgery greater No 08/02/24 11:25 than 60 minutes Number of Risk Factors 1 08/02/24 11:25 PONV Score Low Risk 08/02/24 11:25 Height & Weight Height & Weight: Anesthesia: Height & Weight Height 5 ft 9 in 07/06/24 09:38 Respiratory Assessment Respiratory Assessment - radioisotope technologist: Respiratory Tract Infection Hx - radioisotope technologist Hx Respiratory Tract Infection No 08/02/24 11:25 STOP Sleep Apnea STOP Sleep Apnea - radioisotope technologist: STOP Sleep Apnea - radioisotope technologist Hx Hypertension Yes: CONTROLLED ON MED 08/02/24 11:25 Hx Sleep Apnea No 08/02/24 11:25 CPAP No 08/02/24 11:25 BIPAP No 08/02/24 11:25 Do you snore loudly (louder No 08/02/24 11:25 than talking or can be heard Do you often feel tired/ No 08/02/24 11:25 fatigued/ sleepy during daytime? Has anyone observed you stop No 08/02/24 11:25 breathing during sleep? STOP Results Negative 08/02/24 11:25 QUESTION #5 FULL TEXT : Do you snore loudly (louder than talking or can be heard through closed doors)? 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 Specify any problems Hx of Preganancy in last 3 N/A 08/02/24 11:25 Months Nurse Filling Out Transfusion VCHRISTIN 08/02/24 11:25 & Questions: Date: 08/02/24 08/02/24 11:25 Time: :08/02/24 11:25 Patient unable to answer at this time (ie. confused, unrespo /Reproduction History /Reproductive History - radioisotope technologist: /Reproductive Hx- radioisotope technologist Hx Now Gestational Age (in weeks): EDC: Hx Hx Para Hx Section SAB PFSH Medical History (Updated 08/02/24 @ 11:25 by Elizabeth Abreu) Insulin dependent diabetes mellitus Diabetes Normal stress echocardiogram Essential hypertension Wears glasses High cholesterol Stroke/cerebrovascular accident Gastric reflux Non-smoker History of stress test History of echocardiogram Cardiology follow-up encounter History of heart attack Type 2 diabetes mellitus without complications Carotid artery stenosis Atherosclerosis of coronary artery of [place] heart without angina pectoris Chronic systolic (congestive) heart failure Ischemic cardiomyopathy 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[place] Cerebrovascular disease HTN (hypertension) Home Medications ?Medication ?Instructions ?Recorded ?Last Taken ?Type tamsulosin 0.4 mg capsule 0.4 mg PO QDAY 05/07/17 Unknown History jqdwalor-nla-eejxd acid 0.4 1 tab PO QDAY 06/18/17 Unknown History mg-lycopene 300 mcg-lutein 250 mcg tablet (Centrum Silver) aspirin 81 mg tablet,delayed 81 mg PO QDAY 09/08/17 07/30/24 History release (Adult Aspirin Regimen) furosemide 40 mg tablet 40 mg PO QDAY #90 tabs 11/21/20 Unknown Rx rivaroxaban 20 mg tablet (Xarelto) 20 mg PO QDAY #30 tabs 02/26/21 07/30/24 Rx pantoprazole 40 mg tablet,delayed 40 mg PO QDAY #90 tabs 03/21/21 04/22/23 Rx release potassium chloride 20 mEq 20 meq PO QDAY #90 tabs 03/21/21 Unknown Rx tablet,extended release losartan 25 mg tablet 12.5 mg PO DAILY 07/02/21 04/22/23 History empagliflozin 10 mg tablet 10 mg PO DAILY 12/09/22 07/30/24 History (Jardiance) carvedilol 6.25 mg tablet 6.25 mg PO BID 10/14/23 Unknown History atorvastatin 80 mg tablet 80 mg PO QHS #90 tabs 06/14/24 Unknown Rx insulin NPH isoph U-100 human 100 7 unit subcut BID 08/02/24 Unknown History unit/mL subcutaneous suspension (Novolin N NPH U-100 Insulin isophane) insulin regular human 100 unit/mL 6 unit subcut TID 08/02/24 Unknown History injection solution (Novolin R Regular U-100 Insulin) Allergy/AdvReac Type Severity Reaction Status Date / Time Penicillins Allergy Other Verified 08/02/24 10:59 lisinopril AdvReac Mild Nagging Verified 08/02/24 10:59 cough Family History Mother Hypertension Thyroid disorder hypothyroidism Brother Diabetes H/O mitral valve replacement Father , Age 67 Cancer COPD (chronic obstructive pulmonary disease) Surgical History (Updated 08/02/24 @ 11:25 by Elizabeth Abreu) Hx of colonoscopy History of cardiac catheterization History of skin surgery History of left heart catheterization (03/22/15) H/O right heart catheterization (03/27/15) History of foot surgery H/O coronary artery bypass surgery (03/30/15) Presence of automatic implantable cardioverter-defibrillator (08/21/15) Social History Smoking Status: Never smoker alcohol intake: never substance use type: does not use caffeine: Yes Type: coffee Number of servings: 2 Audit: Pertinent Findings Pertinent Findings Stress test pertinent findings: 10/23/2023. SPECT. Perfusion stress test with no ischemia. Reduced ejection fraction. Echo (EF%) pertinent findings: 03/26/2021. EF 15%. Severe global left ventricular dysfunction. PA pressure 30 mmHg. Consult pertinent findings: Cardiology 10/14/2023. Coronary artery disease. Status post CABG. 2015. Stress echo from 06/04/2019 is negative for ischemia. Stable. Ischemic cardiomyopathy. Chronic. Hypertension. Inactive. Recommendation Anesthesia Recommendation Anesthesia recommendation: OPTIMIZED for anesthesia
[2024-08-03] VITALS (8 sets, daily range): BP systolic 100–143; BP diastolic 57–69; PULSE 57–67; RESP 16–18; TEMP 36.1–36.8; O2SAT 98–100; BMI 29.5
--- NOTE | 2024-08-03 07:36 | PRE.ANES_ITS ---
ASA Classification* ASA Classification ASA Classification: 3 Assessment & Plan Anesthesia* Anesthesia Assessment Anesthesia Assessment: Discussed sedation and/or anesthesia options, risks, benefits, and alternatives with patient/parents/legal guardian/POA. Questions invited. The patient/parents/legal guardian/POA seems to understand and agrees to proceed with anesthesia plan. Reviewed the physical assessment, medical history, allergy history and patient home medications list prior to surgery/procedure/anesthetic and documented any changes. Performed airway and anesthesia risk assessments. Anesthesia Type Anesthesia Type: MAC Anesthesia Focused Assessment* Airway Assessment Mouth opens: >3 cm Mallampati Score: II Focused Labs Anesthesia Preop lab: CBC WBC 8.6 K/mm3 (4.4-11.0) 06/29/24 09:45 06/29/24 RBC 5.23 M/mm3 (4.6-6.2) 06/29/24 09:45 06/29/24 Hgb 15.4 g/dL (13.0-16.5) 06/29/24 09:45 06/29/24 Hct 46.5 % (40-54) 06/29/24 09:45 06/29/24 Plt Count 266 K/mm3 (150-450) 06/29/24 09:45 06/29/24 CHEMISTRY Potassium 4.2 mmol/L (3.5-5.1) 04/16/23 11:58 04/16/23 Sodium 142 mmol/L (136-145) 04/16/23 11:58 04/16/23 BUN 25 mg/dL (7-18) H 04/16/23 11:58 04/16/23 Creatinine 1.30 mg/dL (0.70-1.30) 04/16/23 11:58 04/16/23 Glucose 73 mg/dL (74-106) L 04/16/23 11:58 04/16/23 POC Glucose 231 mg/dL (74-106) H 07/03/21 09:43 07/03/21 COAG PT 19.2 SECONDS (11.7-14.9) H 04/16/23 11:58 03/19 04/09 Pre-Assessment Diagnosis/Proposed Procedure Planned Operative Procedure(s): COLONOSCOPY Anesthesia History 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 When Was Last Pacemaker Check QUESTION #4 FULL TEXT: You/Your Family Experience fever (hyperthermia) with Anesthesia Last Oral Intake Last Oral intake: Last Oral Intake NPO since Meds taken in AM with sips of water? 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 Has anyone observed you stop No 08/02/24 11:25 breathing during sleep? STOP Results Negative 08/02/24 11:25 QUESTION #5 FULL TEXT : Do you snore loudly (louder than talking or can be heard through closed doors)? 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 Specify any problems Hx of Preganancy in last 3 N/A 08/02/24 11:25 Months Nurse Filling Out Transfusion VCHRISTIN 08/02/24 11:25 & Questions: Date: 08/02/24 08/02/24 11:25 Time: 11:26 08/02/24 11:25 Patient unable to answer at this time (ie. 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 setter: /Reproductive Hx- torsion spring coiling machine setter Hx Now Gestational Age (in weeks): EDC: Hx Hx Para Hx Section SAB Active Medications Active Medications: Current Medications Generic Name Dose Route Start Last Admin Trade Name Freq PRN Reason Stop Dose Admin Lactated Ringer's 1,000 mls @ 15 mls/hr 08/03/24 07:30 IV .Q48H TESSY PFSH Medical History Insulin dependent diabetes mellitus Diabetes Normal stress echocardiogram Essential hypertension Wears glasses High cholesterol Stroke/cerebrovascular accident Gastric reflux Non-smoker History of stress test History of echocardiogram Cardiology follow-up encounter History of heart attack Type 2 diabetes mellitus without complications Carotid artery stenosis Atherosclerosis of coronary artery of [place] heart without angina pectoris Chronic systolic (congestive) heart failure Ischemic cardiomyopathy 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[place] Cerebrovascular disease HTN (hypertension) Home Medications ?Medication ?Instructions ?Recorded ?Last Taken ?Type tamsulosin 0.4 mg capsule 0.4 mg PO QDAY 05/07/17 Unkn own History dxyiyawm-mgv-fqlts acid 0.4 1 tab PO QDAY 06/18/17 Unk nown History mg-lycopene 300 mcg-lutein 250 mcg tablet (Centrum Silver) aspirin 81 mg tablet,delayed 81 mg PO QDAY 09/08/17 History release (Adult Aspirin Regimen) furosemide 40 mg tablet 40 mg PO QDAY #90 tabs 11/21 Unknown Rx rivaroxaban 20 mg tablet (Xarelto) 20 mg PO QDAY #30 t abs 02/26/21 07/30/24 Rx pantoprazole 40 mg tablet,delayed 40 mg PO QDAY #90 ta bs 03/21/21 04/22/23 Rx release potassium chloride 20 mEq 20 meq PO QDAY #90 tabs 08/05 Unknown Rx tablet,extended release losartan 25 mg tablet 12.5 mg PO DAILY 07/02/21 History empagliflozin 10 mg tablet 10 mg PO DAILY 12/09/22 History (Jardiance) carvedilol 6.25 mg tablet 6.25 mg PO BID 10/14/23 Unkn own History atorvastatin 80 mg tablet 80 mg PO QHS #90 tabs Unknown Rx insulin NPH isoph U-100 human 100 7 unit subcut BID Unknown History unit/mL subcutaneous suspension (Novolin N NPH U-100 Insulin isophane) insulin regular human 100 unit/mL 6 unit subcut TID Unknown History injection solution (Novolin R Regular U-100 Insulin) Allergy/AdvReac Type Severity Reaction Status Date / Time Penicillins Allergy Other Verified 08/03/24 07:35 lisinopril AdvReac Mild Nagging Verified 08/03/24 07:35 cough Family History Mother Hypertension Thyroid disorder hypothyroidism Brother Diabetes H/O mitral valve replacement Father , Age 67 Cancer COPD (chronic obstructive pulmonary disease) Surgical History Hx of colonoscopy History of cardiac catheterization History of skin surgery History of left heart catheterization (03/22/15) H/O right heart catheterization (03/27/15) History of foot surgery H/O coronary artery bypass surgery (03/30/15) Presence of automatic implantable cardioverter-defibrillator (08/21/15) Social History Smoking Status: Never smoker alcohol intake: never substance use type: does not use caffeine: Yes Type: coffee Number of servings: 2 Review of Systems (Anesthesia) ROS Narrative System reviewed and no additional complaints, except as documented.
[2024-08-03] MEDS: Lactated Ringers 1,000 ML 15 ML IV (07:53)
[2024-08-03 08:15] LABS: Bedside Glucose 205 mg/dL (74-106)
--- NOTE | 2024-08-03 08:28 | PCM.HP.STD ---
HPI - General General Date of Admission: 08/03/24 Date of Service: 08/03/24 Chief Complaint: colonoscopy HPI Narrative The patient is a 74-year-old male with a history of colon polyps. His last colonoscopy was about 3 years ago. He had a couple of tubular adenomas removed at that time. He was told to return in 3 years for a follow-up colonoscopy. He denies any new issues or concerns. He denies any blood in the stools. No black or tarry stools. No family history of colon polyps or colon cancers [facility] Medical History Insulin dependent diabetes mellitus Diabetes Normal stress echocardiogram Essential hypertension Wears glasses High cholesterol Stroke/cerebrovascular accident Gastric reflux Non-smoker History of stress test History of echocardiogram Cardiology follow-up encounter History of heart attack Type 2 diabetes mellitus without complications Carotid artery stenosis Atherosclerosis of coronary artery of [place] heart without angina pectoris Chronic systolic (congestive) heart failure Ischemic cardiomyopathy 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NM Cerebrovascular disease HTN (hypertension) Home Medications ?Medication ?Instructions ?Recorded ?Last Taken ?Type tamsulosin 0.4 mg capsule 0.4 mg PO QDAY 05/07/17 Unknown History wnldbqzc-elh-vemtk acid 0.4 1 tab PO QDAY 06/18/17 Unknown History mg-lycopene 300 mcg-lutein 250 mcg tablet (Centrum Silver) aspirin 81 mg tablet,delayed 81 mg PO QDAY 09/08/17 07/30/24 History release (Adult Aspirin Regimen) furosemide 40 mg tablet 40 mg PO QDAY #90 tabs 11/21/20 Unknown Rx rivaroxaban 20 mg tablet (Xarelto) 20 mg PO QDAY #30 tabs 02/26/21 07/30/24 Rx pantoprazole 40 mg tablet,delayed 40 mg PO QDAY #90 tabs 03/21/21 04/22/23 Rx release potassium chloride 20 mEq 20 meq PO QDAY #90 tabs 03/21/21 Unknown Rx tablet,extended release losartan 25 mg tablet 12.5 mg PO DAILY 07/02/21 04/22/23 History empagliflozin 10 mg tablet 10 mg PO DAILY 12/09/22 07/30/24 History (Jardiance) carvedilol 6.25 mg tablet 6.25 mg PO BID 10/14/23 08/03/24 History atorvastatin 80 mg tablet 80 mg PO QHS #90 tabs 06/14/24 Unknown Rx insulin NPH isoph U-100 human 100 7 unit subcut BID 08/02/24 Unknown History unit/mL subcutaneous suspension (Novolin N NPH U-100 Insulin isophane) insulin regular human 100 unit/mL 6 unit subcut TID 08/02/24 Unknown History injection solution (Novolin R Regular U-100 Insulin) Allergy/AdvReac Type Severity Reaction Status Date / Time Penicillins Allergy Other Verified 08/03/24 07:35 lisinopril AdvReac Mild Nagging Verified 08/03/24 07:35 cough Family History Mother Hypertension Thyroid disorder hypothyroidism Brother Diabetes H/O mitral valve replacement Father , Age 67 Cancer COPD (chronic obstructive pulmonary disease) Surgical History Hx of colonoscopy History of cardiac catheterization History of skin surgery History of left heart catheterization (03/22/15) H/O right heart catheterization (03/27/15) History of foot surgery H/O coronary artery bypass surgery (03/30/15) Presence of automatic implantable cardioverter-defibrillator (08/21/15) Social History Smoking Status: Never smoker alcohol intake: never substance use type: does not use caffeine: Yes Type: coffee Number of servings: 2 ROS Constitutional Constitutional: Reports systems reviewed and no addt'l complaints, except as documented Eyes Eyes: Reports systems reviewed and no addt'l complaints, except as documented ENT HEENT: Reports systems reviewed and no addt'l complaints, except as documented Cardiovascular Cardiovascular: Reports systems reviewed and no addt'l complaints, except as documented Respiratory/Chest Respiratory/Chest: Reports systems reviewed and no addt'l complaints, except as documented Gastrointestinal Gastrointestinal: Reports systems reviewed and no addt'l complaints, except as documented Vital Signs Vital Signs Vital Signs: 08/03/24 07:37 08/03/24 07:37 Temperature 98.3 F Temperature Source Temporal Pulse Rate 67 Respiratory Rate 18 Respiratory Pattern Normal Blood Pressure 143/69 H Blood Pressure Mean 93 Blood Pressure Source Monitor Blood Pressure Position Sitting Blood Pressure Location Left Arm Pulse Ox 100 Oxygen Delivery Method Room Air Weight Weight: 194 lb 0.108 oz Body Mass Index (BMI) 29.5 Physical Exam Const alert, oriented x3 and no apparent distress Results Lab / Micro Data Labs: Laboratory Results - last 24 hr 08/03/24 07:46: POC Glucose 205 H Assessment & Plan Assessment/Plan (1) Encounter for colonoscopy due to history of colonic polyp: PLAN: Plan The patient is a 74-year-old male with a history of colon polyps. It has been 3 years since the last colonoscopy. We discussed the details of the planned procedure and he wishes to proceed. This will begin momentarily. Charges/Coding Visit Charges Inpatient E&M: 54260 Init Hosp L2
--- NOTE | 2024-08-03 08:45 | COLBX_PTH ---
PATIENT: HEAVENLY LYNN LOC: EN U#:[id number] AGE/SX: 74/M ROOM: RE08/03/[address]: Dr. Michele Raya MD : 1950 BED: DIS: 08/03/2024 SPEC #: [id number] RECD: 08/03/24 12:14 STATUS: RONNIE RIGGINS #: [id number] ROCHELLE: 08/03/24 08:[address]: Michele Raya DEPT: SURGICAL PATHOLOGY RECD BY: Kenneth Maya ENTERED: 08/03/24 13:19 SP TYPE: COLON BX OTHR DR: Dr. Avinash Cedeño DO Tissues: A - Sigmoid colon biopsy B - Ascending colon Procedures: Surgery Specimen Level IV HEADER OPERATION: Colonoscopy, polypectomy with cautery, biopsy PRE-OP DIAGNOSIS: Encounter for colonoscopy due to history of colonic polyp TISSUE SUBMITTED: A- Sigmid colon polyp, B- Ascending colon polyp MICROSCOPIC DIAGNOSIS A. Sigmoid colon, polyp, biopsy: Tubular adenoma. B. Ascending colon, polyp, biopsy: Tubulovillous adenoma, multiple fragments. MICROSCOPIC DESCRIPTION Slides are reviewed. GROSS DESCRIPTION A. Received in formalin in a container labeled with the patient's name, date of , and sigmoid colon polyp are 2 rolle-pink fragments of mucosal tissue measuring 0.4 x 0.3 x 0.2 cm and 0.6 x 0.5 x 0.3 cm. Submitted in toto in A1. B. Received in formalin in a container labeled with the patient's name, date of , and ascending colon polyp are multiple rolle-pink fragments of mucosal tissue measuring 1.2 x 0.5 x 0.2 cm in aggregate. Submitted in toto in B1. [facility] 08-03-2024 CPT:15500g1
--- NOTE | 2024-08-03 09:30 | OP.COLON_ITS ---
Patient Name: Adryan Prather Procedure Date: 08/03/2024 8:26 AM Date of : 1950 Age: 74 Procedure: Colonoscopy Indications: High risk colon cancer surveillance: Personal history of colonic polyps Providers: Michele Raya MD Referring MD: Avinash Cedeño Medicines: Monitored Anesthesia Care Patient Profile: Refer to note in patient chart for documentation of history and physical. Last Colonoscopy: 3 years ago. Complications: No immediate complications. Estimated blood loss: Minimal. Procedure: Pre-Anesthesia Assessment: - Prior to the procedure, a History and Physical was performed, and patient medications and allergies were reviewed. The patient's tolerance of previous anesthesia was also reviewed. The risks and benefits of the procedure and the sedation options and risks were discussed with the patient. All questions were answered, and informed consent was obtained. Prior Anticoagulants: The patient has taken no anticoagulant or antiplatelet agents. ASA Grade Assessment: III - A patient with severe systemic disease. After reviewing the risks and benefits, the patient was deemed in satisfactory condition to undergo the procedure. After I obtained informed consent, the scope was passed under direct vision. Throughout the procedure, the patient's blood pressure, pulse, and oxygen saturations were monitored continuously. The colonoscope was introduced through the anus and advanced to the cecum, identified by appendiceal orifice and ileocecal valve. The ileocecal valve, appendiceal orifice, and rectum were photographed. The entire colon was well visualized. The colonoscopy was performed without difficulty. The patient tolerated the procedure well. The quality of the bowel preparation was adequate. Moderate Sedation: See the other procedure note for documentation of moderate sedation with intraservice time. Scope In: 8:46:40 AM Scope Withdrawal Time 0 hours 6 minutes 25 seconds Scope Out: 9:21:42 AM Total Procedure Duration Time 0 hours 35 minutes 2 seconds Findings: The perianal and digital rectal examinations were normal. A few small-mouthed diverticula were found in the sigmoid colon. A 4 mm polyp was found in the sigmoid colon. The polyp was semi-sessile. The polyp was removed with a hot snare. Resection and retrieval were complete. Verification of patient identification for the specimen was done by the nurse using the patient's name, date and medical record number. Estimated blood loss was minimal. A 4 mm polyp was found in the ascending colon. The polyp was semi-sessile. The polyp was removed with a hot snare. Resection and retrieval were complete. Verification of patient identification for the specimen was done by the nurse using the patient's name, date and medical record number. Estimated blood loss was minimal. The exam was otherwise without abnormality. Impression: - Diverticulosis in the sigmoid colon. - One 4 mm polyp in the sigmoid colon, removed with a hot snare. Resected and retrieved. - One 4 mm polyp in the ascending colon, removed with a hot snare. Resected and retrieved. - The examination was otherwise normal. Recommendation: - Discharge patient to home (ambulatory). - High fiber diet. - Await pathology results. - Repeat colonoscopy in 3 - 5 years for surveillance. - Return to my office PRN. - Continue present medications. Procedure Code(s): --- Professional --- 24933, Colonoscopy, flexible; with removal of tumor(s), polyp(s), or other lesion(s) by snare technique Diagnosis Code(s): --- Professional --- Z86.010, Personal history of colonic polyps D12.5, Benign neoplasm of sigmoid colon K57.30, Diverticulosis of large intestine without perforation or abscess without bleeding D12.2, Benign neoplasm of ascending colon CPT copyright 2021 [employer]. All rights reserved. The codes documented in this report are preliminary and upon jewelry technician review may be revised to meet current compliance requirements. Michele Raya MD 08/03/2024 9:30:42 AM This report has been signed electronically. Number of Addenda: 0 Note Initiated On: 08/03/2024 8:26 AM
--- NOTE | 2024-08-03 09:31 | OP.CCLET_ITS ---
08/03/2024 Avinash Cedeño [address] [place] [address] Re : Colonoscopy procedure for Adryan Borgestyler Dear Dr. Cedeño This procedure was performed on Saturday, August 03, 2024. My impressions and recommendations are as follows: Impressions : - Diverticulosis in the sigmoid colon. - One 4 mm polyp in the sigmoid colon, removed with a hot snare. Resected and retrieved. - One 4 mm polyp in the ascending colon, removed with a hot snare. Resected and retrieved. - The examination was otherwise normal. Recommendations : - Discharge patient to home (ambulatory). - High fiber diet. - Await pathology results. - Repeat colonoscopy in 3 - 5 years for surveillance. - Return to my office PRN. - Continue present medications. My findings are described in the full procedure note, which is enclosed. If I can be of further assistance, please feel free to contact me at . Sincerely, Michele Raya MD 08/03/2024 9:30:42 AM This report has been signed electronically.
--- NOTE | 2024-08-03 09:32 | PCM.POST.ANE ---
Anesthesia: Postop Eval I Current Vital Signs Temperature: 97.1 F Pulse Rate: 57 Blood Pressure: 101/58 Respiratory Rate: 16 Pulse Ox: 100 Oxygen Delivery Method: Room Air Assessment Airway patent: Yes Spontaneous unlabored respirations: Yes Mental status: Asleep nausea: No Vomiting: No Anesthesia Complication: No Fluid Hydration Crystalloid volume administer (ml): 800 Total IV fluid infused: 800 Progress Note Anesthesia document: Postop Eval 1 completed: Yes
--- NOTE | 2024-08-03 09:58 | PCM.POSTANE2 ---
Anesthesia Postop Eval I Sum Postop Eval Completion status Anesthesia document: Postop Eval 1 completed: Yes Anesthesia Postop Eval I Summary Anesthesia Postop Eval I Summary: Anesthesia Postop Eval I: Assessment Summary Airway patent Yes 08/03/24 09:33 [email or web address] Spontaneous unlabored Yes 08/03/24 09:33 [email or web address] respirations Mental status Asleep 08/03/24 09:33 [email or web address] nausea No 08/03/24 09:33 [email or web address] Vomiting No 08/03/24 09:33 [email or web address] Anesthesia Postop Eval I: Fluid Summary Crystalloid volume administer 800 08/03/24 09:33 [email or web address] (ml) Colloids volume administered ( ml) Blood Product volume administered (ml) Total IV fluid infused 800 08/03/24 09:33 [email or web address] Anesthesia Postop Eval I: Summary Notes Anesthesia Complication No 08/03/24 09:33 [email or web address] Anesthesia Complication Comment: Post-operative progress note Anesthesia: Postop Eval II Evaluation Mental status: Awake Pain Level: 0 nausea: No Vomiting: No
== END 2024-08-03 10:16 | disposition home or self-care (01) ==
LOC: EN 07:22 → AC 07:24
PROVIDERS: PCP Family Medicine; Referring Provider Family Medicine; Visit Provider Surgery
PROC: 0DJD8ZZ Inspection of Lower Intestinal Tract, Via Natural or Artificial Opening Endoscopic (ICD-10-PCS; CPT 45378; principal; 2024-08-03 08:40)
DX: Z12.11 Encounter for screening for malignant neoplasm of colon (principal); I11.0 Hypertensive heart disease with heart failure; I50.22 Chronic systolic (congestive) heart failure; E11.9 Type 2 diabetes mellitus without complications; Z79.4 Long term (current) use of insulin; Z86.0100 Personal history of colon polyps, unspecified; E78.00 Pure hypercholesterolemia, unspecified; Z79.82 Long term (current) use of aspirin; K57.30 Diverticulosis of large intestine without perforation or abscess without bleeding; Z79.01 Long term (current) use of anticoagulants; I25.10 Atherosclerotic heart disease of native coronary artery without angina pectoris; K21.9 Gastro-esophageal reflux disease without esophagitis; D12.5 Benign neoplasm of sigmoid colon; D12.2 Benign neoplasm of ascending colon
CPT/HCPCS: 45385; 82962; 88305; J2405

== ENCOUNTER → 2024-10-05 | Outpatient (CLI) | payer MEDICARE, SELFPAY ==
--- NOTE | 2024-10-05 08:29 | ECHOCS_ITS ---
Reason For Study Reason For Study: Thrombus Procedure This was a 2D Doppler, Color Flow transthoracic echocardiogram. Contrast injection was performed. Exam performed in department. Left Ventricle Mildly dilated left ventricle. The left ventricular ejection fraction is 20 %. Stage 1 diastolic dysfunction. Right Ventricle Normal RV size. ICD or pacer leads identified within the right ventricle. Normal systolic function. Atria The left atrium is mildly enlarged. Normal right atrium. Mitral Valve Normal mitral valve. Tricuspid Valve Normal tricuspid valve. Mild (1+) tricuspid valve insufficiency. Pulmonary artery systolic pressure is 34 mmHg. Aortic Valve Trisinus/trileaflet aortic valve. Pulmonic Valve Normal pulmonic valve. Great Vessels Normal aortic root. The pulmonary artery is normal size. Inferior vena cava collapse with respiration. Pericardium/Pleural No pericardial effusion. Medication 22 gauge I.V. with prn adaptor inserted into right arm. Diluted definity 2ml given slow IV push to enhance endocardial definition. MMode/2D Measurements & Calculations LVIDd: 5.7 cm IVSd: 1.00 cm Ao root diam: 3.9 cm LVIDs: 5.3 cm LVPWd: 1.0 cm RVDd: 3.9 cm FS: 7.3 % LAV(MOD-bp): 68.5 ml LVAd ap4: 55.3 cm2 SV(MOD-sp4): 50.5 ml LAV(MOD-bp) Indexed: 33.3 ml/m2 LVLd ap4: 9.5 cm SI(MOD-sp4): 24.6 ml/m2 LAV(MOD-sp2): 57.7 ml EDV(MOD-sp4): 268.7 ml LAV(MOD-sp4): 68.8 ml EDV(sp4-el): 274.6 ml LVAs ap4: 48.8 cm2 LVLs ap4: 9.1 cm ESV(MOD-sp4): 218.2 ml ESV(sp4-el): 222.6 ml EF(MOD-sp4): 18.8 % EF(sp4-el): 18.9 % SV(sp4-el): 52.0 ml LA A4 area: 21.9 cm2 LA dimension(2D): 4.9 cm RA A4 area: 14.4 cm2 TAPSE: 1.5 cm Time Measurements MV dec time: 0.19 sec Doppler Measurements & Calculations MV E max samuel: 59.8 cm/sec Lat Peak E' Samuel: 9.8 cm/sec Med Peak E' Samuel: 4.8 cm/sec MV A max samuel: 77.0 cm/sec E/E' lat: 6.1 E/E' med: 12.4 MV E/A: 0.78 MV V2 max: 88.0 cm/sec MV P1/2t max samuel: 64.1 cm/sec Ao V2 max: 88.8 cm/sec MV max P.1 mmHg MV P1/2t: 63.3 msec Ao max P.2 mmHg MV V2 mean: 47.2 cm/sec MV dec slope: 296.5 cm/sec2 Ao V2 mean: 62.5 cm/sec MV mean P.1 mmHg MVA(P1/2t): 3.5 cm2 Ao mean P.8 mmHg MV V2 VTI: 22.8 cm Ao V2 VTI: 22.2 cm AV (velocity ratio): 0.75 LV V1 max: 67.0 cm/sec TR max samuel: 269.7 cm/sec LV V1 max P.8 mmHg TR max P.1 mmHg LV V1 mean P.91 mmHg LV V1 mean: 43.2 cm/sec LV V1 VTI: 16.7 cm ECHO/Echo Complete W/ Contrast Interpretation Summary Mildly dilated left ventricle. The left ventricular ejection fraction is 20 %. Stage 1 diastolic dysfunction. The left atrium is mildly enlarged. Pulmonary artery systolic pressure is 34 mmHg. Possible mass in the apex likely trabeculation Contrast injection was performed . Ordering Physician: Lisa Seo Referring Physician: Lisa Seo Performed By: Scott Mccullough RCS
== END | disposition home or self-care (01) ==
LOC: CVS 08:29
PROVIDERS: PCP Family Medicine; Referring Provider Physician Assistant Medical; Visit Provider Physician Assistant Medical
DX: I24.0 Acute coronary thrombosis not resulting in myocardial infarction (principal)
CPT/HCPCS: 93306; Q9957; A4216; C8929